=== PATIENT | female | born 2000 | race Caucasian/White ===

== ENCOUNTER 2021-07-04 16:18 | Outpatient (REF) | payer OTHER, SELFPAY ==
[2021-07-05 03:50] LABS: HBS Num1 5.82 mIU/mL (0-7.99); ~Hepatitis B Surface Antibody NONREACTIVE (Nonreactive)
[2021-07-07 07:37] LABS: TS Negative Control Passed; TS Panel A 0; TS Panel B 0; TS Positive Control Passed; TSpotTB Negative (Negative)
== END 2021-07-04 16:19 | disposition home or self-care (01) ==
LOC: HO.LNP 16:18
PROVIDERS: Visit Provider Internal Medicine
DX: Z02.1 Encounter for pre-employment examination (principal); Z11.1 Encounter for screening for respiratory tuberculosis
CPT/HCPCS: 86481; 86706

== ENCOUNTER 2023-03-11 17:18 | Emergency (ER) | payer OTHER, SELFPAY ==
--- NOTE | ~2023-03-11 | CT_ITS ---
EXAMINATION: CT ABDOMEN AND PELVIS WITH CONTRAST CLINICAL INFORMATION: Abdominal pain; history of bowel obstruction. COMPARISON: CT enterography dated 12/12/2021. TECHNIQUE: Multidetector volumetric images were obtained from the superior aspect of the liver through the pubic symphysis following administration 85 mL of Omnipaque 350 intravenous contrast. Sagittal and coronal reformatted images were obtained on the technologist's workstation. Oral contrast: No This CT examination was performed using dose optimization techniques as appropriate, variously including the following: *Automated exposure control *Adjustment of mA and/or kV according to patient size (this includes techniques or standardized protocols for targeted exams where dose is matched to indication/reason for exam; i.e. extremities or head) *Use of iterative reconstruction technique DLP: 523 mGy-cm FINDINGS: LUNG BASES: The visualized lung bases are unremarkable. LIVER, GALLBLADDER, AND BILIARY TREE: The liver is normal in size, shape, and attenuation. There is a Binh's lobe configuration. No focal hepatic lesion or biliary ductal dilatation is present. The gallbladder is unremarkable with no evidence of radiopaque gallstones, gallbladder wall thickening, or obvious pericholecystic inflammatory changes. PANCREAS: Unremarkable. SPLEEN: Unremarkable. ADRENAL GLANDS: The bilateral adrenal glands are unremarkable. KIDNEYS AND URETERS: The kidneys are normal in size, shape, and attenuation. 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 No hydronephrosis, hydroureter, or calculi seen. No perinephric stranding. BLADDER: Unremarkable. GASTROINTESTINAL TRACT: There is a patent, somewhat patulous left lower quadrant small bowel anastomosis. No obstruction, free intraperitoneal air or abscess is seen. No focal bowel wall thickening is seen. There is no significant diverticulosis or diverticulitis. The vermiform appendix is not identified with certainty; however, there is no finding to suggest appendicitis. ABDOMINAL WALL: No significant hernia is appreciated. LYMPH NODES: There are shotty pericecal lymph nodes, one of the largest showing a short axis diameter of 7 mm (4:406). No sizable abdominopelvic lymphadenopathy is seen. VASCULAR: Unremarkable. PELVIC VISCERA: The uterus and adnexa are unremarkable. OSSEOUS STRUCTURES: Unremarkable. CT/CT abdomen pelvis w IV con IMPRESSION: 1. There is a patent appearing, somewhat patulous left lower quadrant small bowel anastomosis. No bowel obstruction, free intraperitoneal air or abscess is seen. There is no focal bowel wall thickening. No appendicitis or diverticulitis is seen. 2. No urinary calculus or obstruction is seen. The left kidney is ptotic. 3. There are shotty, nonpathologically enlarged pericecal lymph nodes, likely reactive. No sizable abdominopelvic lymphadenopathy is seen. There is no ascites. Fleischner guidelines were followed.
[2023-03-11 17:23] VITALS: BP 146/87; PULSE 104; RESP 19; TEMP 36.6; O2SAT 99; BMI 26.8
[2023-03-11 17:37] VITALS: BP 128/84; PULSE 93; RESP 22; TEMP 36.8; O2SAT 99
--- NOTE | 2023-03-11 18:03 | ED.ABDPAIN ---
HPI - Abdominal Pain General Chief Complaint: Abdominal Pain Stated Complaint: abdominal pain Time Seen by Provider: 03/11/23 17:48 Source: patient and RN notes reviewed Mode of arrival: ambulatory Limitations: no limitations History of Present Illness HPI narrative: This is a 22-year-old female, with a past medical history of intussusception as a child as well as bowel obstruction in 2020 requiring partial bowel resection, factor 5 Leiden, presenting to the emergency department with acute onset abdominal pain which started 1 hour ago with associated nausea and diarrhea. She states that her current symptoms feel similar to bowel obstruction she had several years ago. 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 She reports that her stool was darker than usual. Patient denies any fevers, chills, chest pain, shortness of breath. Denies any urinary symptoms. Patient denies any abnormal vaginal bleeding or vaginal discharge. She is not sexually active, denies chance of . No other complaints or concerns at this time. MD elicited complaint: abdominal pain Location: periumbilical, RLQ and LLQ Severity: similar to previous episodes Pain scale (0-10): 8 Quality: cramping Radiation: none Migration to: no migration Exacerbating factors: nothing Relieving factors: nothing Associated symptoms: denies other symptoms Related Data Previous Rx's Medication Instructions Recorded ketorolac 10 mg tablet 10 mg PO Q8H PRN pain 3 days #9 03/12/23 tabs ondansetron 4 mg disintegrating 4 mg PO Q6H PRN nausea and 03/12/23 tablet vomiting #20 tabs Allergies Allergy/AdvReac Type Severity Reaction Status Date / Time prochlorperazine Allergy Unknown Verified 03/11/23 17:23 [From Compazine] codeine AdvReac Vomiting Verified 03/11/23 17:23 Review of Systems Review of Systems Yes all other systems are reviewed and are negative Constitutional: Reports as per HPI [facility] Past Medical History Onset Date is defined in the Problem List Problems that require an onset date and time if occurred within 24 hrs of arrival to the ED Aortic Dissection and Rupture; Neurologic impairment; Cardiopulmonary Arrest; Endotracheal Intubation; Insertion or Replacement of Mechanical Circulatory Assist Device Medical History (Updated 03/12/23 @ 01:00 by MUSTAPHA Estrada) Depression Anxiety Factor 5 Leiden mutation, heterozygous Asthma GERD (gastroesophageal reflux disease) IBS (irritable bowel syndrome) Bowel obstruction Endometriosis Social History Social History Smoked in Last 30 Days: No Use of substances other than those prescribed or required for medical reasons: No Advance Directives: No Advance Directives Information Provided: No Patient : No Physical Exam ED Vital Signs: Vital Signs - 24 hr 03/11/23 17:23 03/11/23 17:37 03/11/23 20:04 Temperature 98 F 98.2 F 98.3 F Pulse Rate 104 H 93 93 Respiratory Rate 19 22 H 16 Blood Pressure 146/87 H 128/84 106/62 Pulse Oximetry 99 99 97 Oxygen Delivery Method Room Air Room Air Room Air 03/11/23 20:13 03/11/23 22:27 03/11/23 23:19 Temperature 97.8 F Pulse Rate 87 75 Respiratory Rate 18 20 Blood Pressure 114/69 109/65 109/65 Pulse Oximetry 98 99 Oxygen Delivery Method Room Air Room Air BMI result Body Mass Index 26.8 Const General: cooperative, comfortable and no acute distress Orientation/consciousness: patient oriented x3 Limitations: no limitations HENMT Head: Yes normal to inspection, Yes normocephalic and Yes atraumatic Ears: hearing grossly normal bilaterally General nose exam: Normal external nose present Face and sinus: Yes normal facial exam Mouth: Normal oral and palatal mucosa present, oropharynx normal and moist mucous membranes Throat: Yes posterior oropharynx normal Eyes General: appearance normal, both eyes and all related structures Eyelids: Yes eyelids normal Conjunctivae: conjunctivae normal Sclerae: sclerae normal Pupils: Equal, round and reactive pupils present EOM: EOMs intact bilaterally Neck Neck: Yes normal visual inspection, Yes full ROM and Yes no lymphadenopathy Lymphatic: no lymphadenopathy noted Chest Chest palpation & inspection: normal inspection of the chest Resp Effort & Inspection: normal respiratory effort and able to speak in complete sentences Auscultation: clear to auscultation bilaterally, no crackles, no rales, no rhonchi and no wheezes Cardio Rate: regular rate Rhythm: regular rhythm Heart sounds: S1 normal heart sound present and S2 normal heart sound present GI Other: Abdomen is soft, with tenderness palpation in the periumbilical region as well as left lower and right lower quadrant. No rebound. Normoactive bowel sounds present Inspection: Yes normal to inspection Other: Rectal examination performed with KIM Cortés, present. Good rectal tone, brown stool noted, no active bleeding, no hemorrhoids noted Skin General skin exam: no rashes or lesions noted Trauma: no lacerations or abrasions Wounds: no wounds Neuro General: patient oriented x3 and moves all extremities Cranial nerves: Yes Equal, round and reactive pupils present Extrem General: Yes normal to inspection Right upper extremity: normal to inspection Left upper extremity: normal to inspection Right lower extremity: normal to inspection Left lower extremity: normal to inspection Course Reevaluation(s) Reevaluation #1: Patient reports that the morphine 4 mg and Zofran helped for a moment time however now reporting worsening pain and worsening nausea. Patient has an allergy to Compazine, with acute dystonic reaction. Discussed this with my attending physician, Dr. Ellis. Will medicate with Dilaudid and Phenergan Time: 20:19 Reevaluation #2: Patient reports that the pain has improved, however still having the discomfort. CT scan returns, revealing a patent somewhat patulous left lower quadrant small bowel anastomosis. No obstruction, free intraperitoneal abscess or air seen no focal bowel wall thickening. No diverticulitis or diverticulosis. Appendicitis or diverticulitis is not seen. There are shotty non pathological enlarged pericecal lymph nodes, likely reactive. I discussed these findings with my attending physician, Dr. Ellis. Sxs likely mesenteric adenitis. Recommends administering Toradol, and discharge with pain medication antiemetics. Will obtain stool occult. Time: 23:00 Reevaluation #3: Stool occult negative, urinalysis without any signs of UTI. Patient's symptoms improved after receiving IV Toradol. Still having slight discomfort however overall improved. P.o. challenge administered, able to tolerate fluids as well as food without any worsening symptoms. I discussed overall workup with patient as well as mother at bedside, symptoms likely consistent with mesenteric adenitis, unknown of viral etiology. Given CT findings show no obstruction or any other acute abnormalities, patient can be safely discharged home with close return precautions as well as follow-up with GI. I encouraged patient to continue at home bowel regimen given history of IBS, bowel obstructions and she was given opioid medications. She understands and agrees with this plan. Patient discharged with ketorolac x3 days as well as Zofran. Given strict return precautions. Patient understands agrees with plan. Patient stable for discharge. Time: 00:03 Medical Decision Making Medical Decision Making [facility] Narrative: This is a 22-year-old female, with a past medical history of intussusception as a child as well as bowel obstruction in 2020 requiring partial bowel resection, factor 5 Leiden, presenting to the emergency department with acute onset abdominal pain which started 1 hour ago with associated nausea and diarrhea. On arrival, patient appears to be uncomfortable, grimacing, patient afebrile, respirations 22 likely secondary to discomfort. Patient has tenderness palpation in the lower abdomen, with guarding, no rebound. Abdomen is soft. Given significant medical history of bowel obstruction with resection, my concern for bowel obstruction is high. Patient was seen and evaluated by my supervising physician, Dr. Ellis. Plan: Labs, CT abdomen with IV contrast, UA, IV Zofran and IV morphine Differential Diagnosis Differential Diagnoses: The differential diagnosis associated with the presentation includes Small-bowel obstruction, diverticulitis, diverticulosis Admission/Observation Consideration of admission/observation: Escalation of care including admission/observation considered Escalation of care including admission/observation considered given significant past medical history of bowel obstruction with bowel resection. Lab Data [facility] Lab Attestation statement: I reviewed the patient's lab results. No leukocytosis, stable H&H, chemistry within normal limits. Urine does not appear to be infected. Negative 03/11/23 18:54 03/11/23 18:54 Labs: Lab Results 03/11/23 03/11/23 03/11/23 Range/Units 18:54 22:46 22:47 WBC 10.1 (4.8-10.8) X10*3/uL RBC 4.38 (4.20-5.50) X10*6/uL Hgb 12.6 (12.0-16.0) g/dl Hct 37.6 (37.0-47.0) % MCV 85.8 (80.0-98.0) fL MCH 28.8 (27.0-33.0) pg MCHC 33.5 (31.0-35.0) g/dl RDW 12.9 (11.0-16.0) % Plt Count 292 (160-400) X10*3/uL MPV 10.1 (9.4-12.3) fL Immature Gran % (Auto) 0.2 (0.0-0.4) % Neut % (Auto) 65.8 (45-73) % Lymph % (Auto) 25.5 (20-40) % Garland % (Auto) 6.9 (2-11) % Eos % (Auto) 1.2 (0-4) % Baso % (Auto) 0.4 (0-2) % Lymph # (Auto) 2.6 (1.2-4.9) X10*3/uL Garland # (Auto) 0.7 (0.1-1.2) X10*3/uL Eos # (Auto) 0.1 (0.0-0.4) X10*3/uL Baso # (Auto) 0.0 (0.0-0.2) X10*3/uL Abs Immat Gran (auto) 0.02 (0.00-0.03) X10*3/uL Absolute Neuts (auto) 6.7 (2.0-8.3) x10*3/uL Absolute Nucleated RBC 0.000 (0.0-0.012) X10*3/uL Nucleated RBC % (auto) 0.0 (0.0-0.2) /100WBC Sodium 140 (135-145) mmol/L Potassium 4.0 (3.3-5.1) mmol/L Chloride 110 H (96-108) mmol/L Carbon Dioxide 20 L (22-29) mmol/L Anion Gap 14 (12-20) BUN 15 (9-16) mg/dL Creatinine 0.82 (0.5-1.4) mg/dL Estim Creat Clear Calc 115.5 Estimated GFR > 60 Random Glucose 90 (60-115) mg/dL Calcium 9.5 (8.4-10.2) mg/dL Magnesium 2.0 (1.6-2.6) mg/dL Total Bilirubin 0.8 (0.0-1.0) mg/dL Direct Bilirubin 0.3 (0.0-0.5) mg/dL AST 15 (5-31) U/L ALT 12 (0-31) U/L Alkaline Phosphatase 82 (39-117) U/L Total Protein 8.0 (6.5-8.0) g/dL Albumin 4.7 (3.5-5.0) g/dL Lipase 25 (8-78) U/L Beta HCG, Quant < 2 mIU/mL Urine Color Yellow Urine Appearance Clear Urine pH 5.5 (5.0-9.0) Ur Specific Cook Sta >= 1.030 H (1.005-1.025) Urine Protein Negative (Neg-Trace) mg/dL Urine Glucose (UA) Negative (Negative) mg/dL Urine Ketones Negative (Negative) mg/dL Urine Blood Negative (Negative) Urine Nitrite Negative (Negative) Ur Leukocyte Esterase Negative (Negative) Stool Occult Blood NEGATIVE (NEGATIVE) Radiology Impression Discussion of test interpretation with radiology: I have reviewed the radiologist's reading. Radiologist Impression: EXAMINATION: CT ABDOMEN AND PELVIS WITH CONTRAST CLINICAL INFORMATION: Abdominal pain; history of bowel obstruction. COMPARISON: CT enterography dated 12/12/2021. TECHNIQUE: Multidetector volumetric images were obtained from the superior aspect of the liver through the pubic symphysis following administration 85 mL of Omnipaque 350 intravenous contrast. Sagittal and coronal reformatted images were obtained on the technologist's workstation. Oral contrast: No This CT examination was performed using dose optimization techniques as appropriate, variously including the following: *Automated exposure control *Adjustment of mA and/or kV according to patient size (this includes techniques or standardized protocols for targeted exams where dose is matched to indication/reason for exam; i.e. extremities or head) *Use of iterative reconstruction technique DLP: 523 mGy-cm FINDINGS: LUNG BASES: The visualized lung bases are unremarkable. LIVER, GALLBLADDER, AND BILIARY TREE: The liver is normal in size, shape, and attenuation. There is a Binh's lobe configuration. No focal hepatic lesion or biliary ductal dilatation is present. The gallbladder is unremarkable with no evidence of radiopaque gallstones, gallbladder wall thickening, or obvious pericholecystic inflammatory changes. PANCREAS: Unremarkable. SPLEEN: Unremarkable. ADRENAL GLANDS: The bilateral adrenal glands are unremarkable. KIDNEYS AND URETERS: The kidneys are normal in size, shape, and attenuation. 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 No hydronephrosis, hydroureter, or calculi seen. No perinephric stranding. BLADDER: Unremarkable. GASTROINTESTINAL TRACT: There is a patent, somewhat patulous left lower quadrant small bowel anastomosis. No obstruction, free intraperitoneal air or abscess is seen. No focal bowel wall thickening is seen. There is no significant diverticulosis or diverticulitis. The vermiform appendix is not identified with certainty; however, there is no finding to suggest appendicitis. ABDOMINAL WALL: No significant hernia is appreciated. LYMPH NODES: There are shotty pericecal lymph nodes, one of the largest showing a short axis diameter of 7 mm (4:406). No sizable abdominopelvic lymphadenopathy is seen. VASCULAR: Unremarkable. PELVIC VISCERA: The uterus and adnexa are unremarkable. OSSEOUS STRUCTURES: Unremarkable. CT/CT abdomen pelvis w IV con IMPRESSION: 1. There is a patent appearing, somewhat patulous left lower quadrant small bowel anastomosis. No bowel obstruction, free intraperitoneal air or abscess is seen. There is no focal bowel wall thickening. No appendicitis or diverticulitis is seen. 2. No urinary calculus or obstruction is seen. The left kidney is ptotic. 3. There are shotty, nonpathologically enlarged pericecal lymph nodes, likely reactive. No sizable abdominopelvic lymphadenopathy is seen. There is no ascites. Fleischner guidelines were followed. Dictated By: Randal Alonso MD Independent Historian Clinical information obtained from an independent historian. History obtained from or confirmed by: Parent Medications Administered Discontinued Medications Generic Name Dose Route Start Last Admin Trade Name Freq PRN Reason Stop Dose Admin Hydromorphone HCl 1 mg 03/11/23 20:12 03/11/23 20:59 Hydromorphone Hcl 1 Mg/Ml Syringe IVPUSH 03/11/23 20:13 1 mg ONCE ONE Administration Protocol Promethazine HCl 12.5 mg/ 50.5 mls @ 202 mls/hr 03/11/23 20:12 03/11/23 21:14 Sodium Chloride IV 03/11/23 20:13 Infused ONCE ONE Infusion Sodium Chloride 1,000 mls @ 999 mls/hr 03/11/23 22:49 03/12/23 00:22 Ns IV 03/11/23 23:49 Infused .Q1H1M ONE Infusion Iohexol 85 ml 03/11/23 19:47 03/11/23 19:47 Iohexol 350 Mg/Ml 100 Ml Infus..Btl IV 03/11/23 19:48 85 ml ONCE ONE Administration Ketorolac Tromethamine 30 mg 03/11/23 23:07 01/10/24 23:32 Ketorolac Tromethamine 30 Mg/Ml Vial IVPUSH 03/11/23 23:08 30 mg ONCE ONE Administration Morphine Sulfate 4 mg 03/11/23 18:01 03/11/23 19:02 Morphine Sulfate 4 Mg/Ml Cartridge IVPUSH 03/11/23 18:02 4 mg ONCE ONE Administration Protocol Ondansetron HCl 4 mg 03/11/23 18:01 03/11/23 19:02 Ondansetron Hcl 4 Mg/2 Ml Vial IVPUSH 03/11/23 18:02 4 mg ONCE ONE Administration Critical Care Time Critical Care Time Critical Care Time: Yes Total Critical Care Time: 35 Attestation: I have personally provided critical care time exclusive of time spent on separately billable procedures. Time includes review of lab data, radiology results, discussion with consultants, and monitoring for potential decompensation. Intervention performed as documented. Discharge Plan Discharge Clinical Impression: Abdominal pain, Acute mesenteric adenitis Patient Disposition: Home, Self-Care Instructions: Abdominal Pain (ED) Additional Instructions: You were seen in the emergency department due to abdominal pain. Your CT shows no bowel obstruction. There are also nonspecific lymph nodes seen, this is likely due to a viral etiology. Please continue to stay well hydrated and get plenty of rest. Please follow-up with your GI specialist, call tomorrow to make an appointment. Take prescribed medication as directed. Do not take Toradol and ibuprofen together. I am also recommending you take bowel regimen medications as needed as you were given opiates in the department which can be constipating. If any new or worsening symptoms occur including but not limited to worsening abdominal pain, unable to tolerate any food or liquid by mouth, please return for re-evaluation. Prescriptions: New ondansetron 4 mg tablet,disintegrating 4 mg PO Q6H PRN (Reason: nausea and vomiting) Qty: 20 0RF ketorolac 10 mg tablet 10 mg PO Q8H PRN (Reason: pain) 3 Days Qty: 9 0RF Referrals: [facility] [[place] Group] Stand Alone Forms: Work/School Release Interventions: ED Discharge Assessment Last Done: 03/12/23 01:42 Discharge Date/Time: 03/12/23 01:46
--- NOTE | 2023-03-11 18:50 | PC.NURSE ---
this nurse and another attempted IV access/blood draw, unable to access. RN at bedside attempting u/s IV.
[2023-03-11 19:00] LABS: MANUAL DIFF FLAG NO
[2023-03-11 19:02] LABS: Basophils Percent Auto 0.4 % (0-2); Eosinophils Absolute Auto 0.1 X10*3/uL (0.0-0.4); Eosinophils Percent Auto 1.2 % (0-4); Hematocrit 37.6 % (37.0-47.0); Hemoglobin 12.6 g/dl (12.0-16.0); Imm Gran Abs Auto 0.02 X10*3/uL (0.00-0.03); Imm Gran Pct Auto 0.2 % (0.0-0.4); Lymphocytes Absolute Auto 2.6 X10*3/uL (1.2-4.9); Lymphocytes Percent Auto 25.5 % (20-40); Mean Corpuscular HGB Conc 33.5 g/dl (31.0-35.0); Mean Corpuscular Hemoglobin 28.8 pg (27.0-33.0); Mean Corpuscular Volume 85.8 fL (80.0-98.0); Mean Platelet Volume 10.1 fL (9.4-12.3); Monocytes Absolute Auto 0.7 X10*3/uL (0.1-1.2); Monocytes Percent Auto 6.9 % (2-11); Neutrophils Absolute Auto 6.7 x10*3/uL (2.0-8.3); Neutrophils Percent Auto 65.8 % (45-73); Platelet Count 292 X10*3/uL (160-400); Red Blood Count 4.38 X10*6/uL (4.20-5.50); Red Cell Distribution Width 12.9 % (11.0-16.0); White Blood Count 10.1 X10*3/uL (4.8-10.8)
[2023-03-11] MEDS: ondansetron HCL 4 MG/2 ML VIAL IVPUSH (19:02)
[2023-03-11] MEDS: Morphine Sulfate 4 MG/ML CARTRIDGE IVPUSH (19:02)
--- NOTE | 2023-03-11 19:08 | PC.NURSE ---
Addendum entered by Milana Manjarrez 03/11/23 19:14: IV access placed in Left AC Original Note: this rn assumed care of pt. pt reporting 8/10 abdominal pain at this time, pt medicated per apr, delay in medication administration due to pt needing access. 20G placed in right AC by Aly ALVAREZ.
[2023-03-11 19:16] LABS: Alanine Aminotransferase 12 U/L (0-31); Albumin Level 4.7 g/dL (3.5-5.0); Alkaline Phosphatase 82 U/L (39-117); Anion Gap 14 (12-20); Aspartate Amino Transferase 15 U/L (5-31); Bilirubin Direct 0.3 mg/dL (0.0-0.5); Bilirubin Total 0.8 mg/dL (0.0-1.0); Blood Urea Nitrogen 15 mg/dL (9-16); Calcium 9.5 mg/dL (8.4-10.2); Carbon Dioxide 20 mmol/L (22-29); Chloride 110 mmol/L (96-108); Creatinine Clr Calc Pharmacy 115.5; Estimated Glomerular Filt Rate > 60; Glucose Random 90 mg/dL (60-115); Lipase 25 U/L (8-78); Sodium 140 mmol/L (135-145)
[2023-03-11 19:23] LABS: HCG Quantitative < 2 mIU/mL
[2023-03-11] MEDS: iohexoL 350 MG/ML 100 ML INFUS..BTL 85 ML IV (19:47)
[2023-03-11 20:04] VITALS: BP 106/62; PULSE 93; RESP 16; TEMP 36.8; O2SAT 97
[2023-03-11 20:13] VITALS: BP 114/69
[2023-03-11] MEDS: HYDROmorphone HCl 1 MG/ML SYRINGE IVPUSH (20:59)
[2023-03-11 22:27] VITALS: BP 109/65; PULSE 87; RESP 18; TEMP 36.6; O2SAT 98
[2023-03-11] MEDS: 0.9 % Sodium Chloride 1,000 ML 999 ML IV (22:54)
[2023-03-11 23:04] LABS: OBS Int Ctl Valid YES; OBS1 NEGATIVE (NEGATIVE)
[2023-03-11 23:05] LABS: Appearance Urine Clear; Color Urine Yellow; Glucose Urine UA Negative (Negative); Leukocyte Esterase Urine Negative (Negative); Nitrite Urine Negative (Negative); PH 5.5 (5.0-9.0); Specific Gravity - Urine >= 1.030 (1.005-1.025); Urine Blood Negative (Negative); Urine Ketones Negative (Negative); Urine Protein Negative (Neg-Trace)
--- NOTE | 2023-03-11 23:05 | PC.NURSE ---
this rn at bedside to assist Jeanine LUCIANO with rectal exam. pt tolerated well. OBX obtained and sent to lab.
[2023-03-11 23:19] VITALS: BP 109/65; PULSE 75; RESP 20; O2SAT 99
[2023-03-11] MEDS: Ketorolac Tromethamine 30 MG/ML VIAL IVPUSH (23:32)
== END 2023-03-12 01:46 | disposition home or self-care (01) ==
PROVIDERS: Physician Assistant Medical; Emergency Provider Emergency Medicine; PCP Pediatrics
DX: R10.9 Unspecified abdominal pain (principal); R59.0 Localized enlarged lymph nodes
CPT/HCPCS: 36415; 74177; 80048; 80076; 81003; 82272; 83690; 83735; 84702; 85025; 96361; 96374; 96375; 99284; 99285; J1170; J1885; J2270; J2405; J2550; Q9967

== ENCOUNTER 2023-04-17 06:39 | Emergency (ER) | payer OTHER, SELFPAY ==
--- NOTE | ~2023-04-17 | CT_ITS ---
EXAMINATION: CT ABDOMEN AND PELVIS WITH CONTRAST CLINICAL INFORMATION: Abdominal pain questionable obstruction COMPARISON: 03/11/2023 TECHNIQUE: Multidetector volumetric images were obtained from the superior aspect of the liver through the pubic symphysis following administration 85 mL of Omnipaque 350 intravenous contrast. Sagittal and coronal reformatted images were obtained on the technologist's workstation. Oral contrast: Yes This CT examination was performed using dose optimization techniques as appropriate, variously including the following: *Automated exposure control *Adjustment of mA and/or kV according to patient size (this includes techniques or standardized protocols for targeted exams where dose is matched to indication/reason for exam; i.e. extremities or head) *Use of iterative reconstruction technique DLP: 510 mGy-cm FINDINGS: LUNG BASES: The visualized lung bases are unremarkable. LIVER, GALLBLADDER, AND BILIARY TREE: The liver is normal in size, shape, and attenuation. No focal hepatic lesion or biliary ductal dilatation is present. The gallbladder is unremarkable with no evidence of radiopaque gallstones, gallbladder wall thickening, or obvious pericholecystic inflammatory changes. PANCREAS: Unremarkable. SPLEEN: Unremarkable. ADRENAL GLANDS: Unremarkable. KIDNEYS AND URETERS: Right kid. There is no hydroureteronephrosis or nephrolithiasis. [place] is unremarkable. 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 GASTROINTESTINAL TRACT: There is no evidence of bowel obstruction. There is circumferentially thickened wall of sigmoid colon and descending colon is decompressed. Anastomosis is well functioning slightly patulous. There is no evidence of bowel obstruction. Appendix is not seen ABDOMINAL WALL: No significant hernia is appreciated. LYMPH NODES: There are a few scattered lymph nodes with the largest in the right lower quadrant measured 1.1 cm. VASCULAR: Unremarkable. PELVIC VISCERA: Unremarkable. OSSEOUS STRUCTURES: Unremarkable. CT/CT abdomen pelvis w IV con IMPRESSION: No evidence of bowel obstruction. 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
--- NOTE | 2023-04-17 06:51 | ED.GENADULT ---
HPI - General Adult General Chief complaint: Abdominal Pain Stated complaint: abd pain Time Seen by Provider: 04/17/23 06:50 Source: patient and family (patient's father) Mode of arrival: ambulatory Limitations: no limitations History of Present Illness HPI narrative: Patient is a 22 year old assigned female at with a history of previous abdominal surgeries including adhesion removal after discovery of volvulus presenting to the emergency department today with abdominal pain. Patient states that over the last few hours she has had worsening epigastric type pain. Patient states that her last solid bowel movement was 2 days ago and she continues to pass gas. Patient denies any dizziness, lightheadedness, fever, chills, blurry vision, double vision, loss of vision, chest pain, difficulty breathing, shortness of breath, back pain, night sweats, pain with urination, increased urinary frequency, increased urinary urgency, blood in her urine or stool, syncope or a near syncopal episode, recent trauma or falls, bowel incontinence, bladder incontinence, bowel retention, bladder retention, or any other complaints at this time. Location: abdomen Severity: mild Severity scale (1-10): 4 Quality: aching Pain Consistency: constant Relieving factors: none Exacerbating factors: none Treatments prior to arrival: none Related Data Previous Rx's Medication Instructions Recorded ketorolac 10 mg tablet 10 mg PO Q8H PRN pain 3 days #9 03/12/23 tabs ondansetron 4 mg disintegrating 4 mg PO Q6H PRN nausea and 03/12/23 tablet vomiting #20 tabs ketorolac 10 mg tablet 10 mg PO TID PRN pain 5 days #14 04/17/23 tabs prednisone 20 mg tablet 40 mg (2 x 20 mg) PO BID 7 days 04/17/23 #28 tabs promethazine 12.5 mg tablet 12.5 mg PO TID PRN nausea and 04/17/23 vomiting #14 tabs Allergies Allergy/AdvReac Type Severity Reaction Status Date / Time prochlorperazine Allergy Unknown Verified 04/17/23 06:52 [From Compazine] codeine AdvReac Vomiting Verified 04/17/23 06:52 Review of Systems Constitutional: Constitutional: Reports no additional constitutional complaints, Denies chills, Denies fever(s) and Denies night sweats Eyes: Eyes: Reports no additional eye complaints, Denies blurry vision, Denies change in vision, Denies diplopia, Denies eye discharge, Denies loss of vision and Denies eye pain ENT: Denies dizziness Cardiovascular: Cardiovascular: Reports no additional cardiovascular complaints, Denies chest pain, Denies lightheadedness, Denies Loss of Consciousness and Denies dyspnea Respiratory: Respiratory: Reports no additional respiratory complaints and Denies dyspnea Gastrointestinal: Gastrointestinal: Reports no additional gastrointestinal complaints, Reports abdominal pain, Denies melena, Denies hematochezia, Denies change in bowel habits and Denies change in stool character Genitourinary: Genitourinary: Denies hematuria, Denies urinary frequency, Denies dysuria, Denies urinary incontinence, Denies urinary hesitancy and Denies urinary urgency Musculoskeletal: Musculoskeletal: Reports no additional musculoskeletal complaints, Denies numbness and Denies tingling Neurologic: Denies dizziness, Denies loss of vision, Denies numbness and Denies tingling Psychiatric: Psychiatric: Reports no additional psychiatric complaints Endocrine: Endocrine: Reports no additional endocrine complaints Hematologic/Lymphatic: Hematologic/Lymphatic: Reports no additional hematologic/lymphatic complaints Allergic/Immunologic: Allergic/Immunologic: Reports no additional allergic/immunologic complaints [facility] Past Medical History Attestation statement: The following information was validated with the patient. (all information validated with the patient's father) Source: old records reviewed, obtained from family (patient's father provided additional history and confirmed the history provided by the patient) and nursing notes reviewed Medical History Depression Anxiety Factor 5 Leiden mutation, heterozygous Asthma GERD (gastroesophageal reflux disease) IBS (irritable bowel syndrome) Bowel obstruction Endometriosis Social History Social History Advance Directives: No Advance Directives Information Provided: No Physical Exam ED Vital Signs: Vital Signs - 24 hr 04/17/23 06:52 04/17/23 09:07 04/17/23 10:49 Temperature 98 F 98 F 98.3 F Pulse Rate 102 H 80 79 Respiratory Rate 16 16 18 Blood Pressure 134/90 H 113/75 108/52 L Pulse Oximetry 95 99 100 Oxygen Delivery Method Room Air Room Air Room Air BMI result Body Mass Index 26.6 Const General: cooperative, no acute distress, alert and awake Nutritional Appearance: well nourished Orientation/consciousness: patient oriented x3 Limitations: no limitations HENMT Head: Yes normal to inspection and Yes atraumatic Ears: hearing grossly normal bilaterally and external ears normal General nose exam: Normal external nose present, no nasal discharge noted and no epistaxis Face and sinus: Yes normal facial exam, No abrasion and No laceration Mouth: Normal oral and palatal mucosa present, no drooling and no muffled voice Eyes General: appearance normal, both eyes and all related structures Periorbital: periorbital findings normal Eyelids: Yes eyelids normal Conjunctivae: conjunctivae normal Pupils: Equal, round and reactive pupils present EOM: EOMs intact bilaterally Neck Neck: Yes normal visual inspection, Yes full ROM and Yes no lymphadenopathy Chest Chest palpation & inspection: normal inspection of the chest Resp Effort & Inspection: normal respiratory effort and able to speak in complete sentences GI Inspection: Yes normal to inspection Palpation (GI): Soft to palpation, not firm, nontender and no guarding Neuro General: patient oriented x3 and moves all extremities Cranial nerves: Yes Equal, round and reactive pupils present Cognition (Neuro): normal cognition Motor exam (neuro): 5/5 motor strength present throughout Sensory Exam: Normal double simultaneous stimulation for sensation Coordination: [id number] test normal Extrem General: Yes normal to inspection, Yes full ROM and Yes capillary refill normal Psych Appearance: grossly normal Mental Status: mental status grossly normal Affect: normal affect Attitude: cooperative Thought process: Normal thought process present Thought content: Normal thought content present Insight: Good insight present (Psych) Medications Administered Discontinued Medications Generic Name Dose Route Start Last Admin Trade Name Mikeyq PRN Reason Stop Dose Admin Hydromorphone HCl 1 mg 04/17/23 10:11 04/17/23 10:45 Hydromorphone Hcl 1 Mg/Ml Syringe IVPUSH 04/17/23 10:12 1 mg ONCE ONE Administration Protocol Sodium Chloride 1,000 mls @ 999 mls/hr 04/17/23 07:15 04/17/23 10:53 Ns IV 04/17/23 08:15 Infused .Q1H1M RICCO Infusion Promethazine HCl 12.5 mg/ 50.5 mls @ 202 mls/hr 04/17/23 11:53 04/17/23 12:38 Sodium Chloride IV 04/17/23 11:54 202 mls/hr ONCE ONE Administration Iohexol 85 ml 04/17/23 09:59 04/17/23 10:00 Iohexol 350 Mg/Ml 100 Ml Infus..Btl IV 04/17/23 10:00 85 ml ONCE ONE Administration Ketorolac Tromethamine 15 mg 04/17/23 10:11 04/17/23 10:45 Ketorolac Tromethamine 15 Mg/Ml Vial IVPUSH 04/17/23 10:12 15 mg ONCE ONE Administration Morphine Sulfate 4 mg 04/17/23 07:07 04/17/23 08:49 Morphine Sulfate 4 Mg/Ml Cartridge IVPUSH 04/17/23 07:08 4 mg ONCE ONE Administration Protocol Ondansetron HCl 4 mg 04/17/23 07:07 04/17/23 08:49 Ondansetron Hcl 4 Mg/2 Ml Vial IVPUSH 04/17/23 07:08 4 mg ONCE ONE Administration Pantoprazole Sodium 40 mg 04/17/23 07:07 04/17/23 08:49 Pantoprazole Sodium 40 Mg/10 Ml Vial IVPUSH 04/17/23 07:08 40 mg ONCE ONE Administration Medical Decision Making Medical Decision Making MDM Narrative: Patient is a 22 year old assigned female at with a history of multiple abdominal surgeries presenting to the emergency department today with abdominal pain, nausea, and diarrhea. Patient's physical exam was unremarkable. Patient's blood work was unremarkable. Patient's urine showed no acute process. Patient's abdomen/pelvis CT showed circumferential thickening of the sigmoid colon possibly due to inflammatory bowel disease vs. crohn colitis. I explained my physical exam findings as well as all test results to the patient and the patient's mother. I answered all questions asked by the patient and the patient's mother. Patient received IV pain medications, fluids, and anti-emetics while in the department which she stated helped her symptoms significantly. I stressed the importance of the patient taking her medication as prescribed. I stressed the importance of the patient following up with her primary care provider. I stressed the importance of the patient returning to the emergency department immediately if her symptoms were to worsen or if she were to develop any dizziness, shortness of breath, difficulty breathing, chest pain, blurry vision, loss of vision, nausea, vomiting, abdominal pain, fever, chills, back pain, or any other complaints. Patient and the patient's mother verbalized agreement and understanding with this treatment plan and discharge. Differential Diagnosis Differential Diagnoses: The differential diagnosis associated with the presentation includes Crohns Inflammatory bowel Colitis Abdominal pain Admission/Observation Consideration of admission/observation: Escalation of care including admission/observation considered Patient would have been admitted to the hospital had her work up had any findings where hospital admission was appropriate and her clinical presentation warranted hospital admission. Lab Data [facility] Lab Attestation statement: I reviewed the patient's lab results. My interpretation of these results are in the [facility] Rationale portion of this note. 04/17/23 08:42 04/17/23 08:42 Labs: Lab Results 04/17/23 04/17/23 Range/Units 07:32 08:42 WBC 8.2 (4.8-10.8) X10*3/uL RBC 4.94 (4.20-5.50) X10*6/uL Hgb 14.1 (12.0-16.0) g/dl Hct 41.6 (37.0-47.0) % MCV 84.2 (80.0-98.0) fL MCH 28.5 (27.0-33.0) pg MCHC 33.9 (31.0-35.0) g/dl RDW 12.9 (11.0-16.0) % Plt Count 254 (160-400) X10*3/uL MPV 10.2 (9.4-12.3) fL Immature Gran % (Auto) 0.4 (0.0-0.4) % Neut % (Auto) 76.4 H (45-73) % Lymph % (Auto) 16.8 L (20-40) % [place] % (Auto) 5.4 (2-11) % Eos % (Auto) 0.6 (0-4) % Baso % (Auto) 0.4 (0-2) % Lymph # (Auto) 1.4 (1.2-4.9) X10*3/uL [place] # (Auto) 0.4 (0.1-1.2) X10*3/uL Eos # (Auto) 0.1 (0.0-0.4) X10*3/uL Baso # (Auto) 0.0 (0.0-0.2) X10*3/uL Abs Immat Gran (auto) 0.03 (0.00-0.03) X10*3/uL Absolute Neuts (auto) 6.2 (2.0-8.3) x10*3/uL Absolute Nucleated RBC 0.000 (0.0-0.012) X10*3/uL Nucleated RBC % (auto) 0.0 (0.0-0.2) /100WBC Sodium 142 (135-145) mmol/L Potassium 4.1 (3.3-5.1) mmol/L Chloride 110 H (96-108) mmol/L Carbon Dioxide 20 L (22-29) mmol/L Anion Gap 16 (12-20) BUN 15 (9-16) mg/dL Creatinine 0.82 (0.5-1.4) mg/dL Estim Creat Clear Calc 115.0 Estimated GFR > 60 Random Glucose 84 (60-115) mg/dL Calcium 9.8 (8.4-10.2) mg/dL Total Bilirubin 1.9 H (0.0-1.0) mg/dL AST 16 (5-31) U/L ALT 11 (0-31) U/L Alkaline Phosphatase 86 (39-117) U/L Total Protein 8.4 H (6.5-8.0) g/dL Albumin 5.0 (3.5-5.0) g/dL Beta HCG, Quant 3 mIU/mL Urine Color Yellow Urine Appearance Clear Urine pH 6.0 (5.0-9.0) Ur Specific [place] >= 1.030 H (1.005-1.025) Urine Protein Trace (Neg-Trace) mg/dL Urine Glucose (UA) Negative (Negative) mg/dL Urine Ketones Negative (Negative) mg/dL Urine Blood Negative (Negative) Urine Nitrite Negative (Negative) Ur Leukocyte Esterase Negative (Negative) Independent Interpretation I performed an independent interpretation of an: CT Scan Interpretation: My interpretation is in agreement with the radiologist's impression of this imaging study. EXAMINATION: CT ABDOMEN AND PELVIS WITH CONTRAST CLINICAL INFORMATION: Abdominal pain questionable obstruction COMPARISON: 03/11/2023 TECHNIQUE: Multidetector volumetric images were obtained from the superior aspect of the liver through the pubic symphysis following administration 85 mL of Omnipaque 350 intravenous contrast. Sagittal and coronal reformatted images were obtained on the technologist's workstation. Oral contrast: Yes This CT examination was performed using dose optimization techniques as appropriate, variously including the following: *Automated exposure control *Adjustment of mA and/or kV according to patient size (this includes techniques or standardized protocols for targeted exams where dose is matched to indication/reason for exam; i.e. extremities or head) *Use of iterative reconstruction technique DLP: 510 mGy-cm FINDINGS: LUNG BASES: The visualized lung bases are unremarkable. LIVER, GALLBLADDER, AND BILIARY TREE: The liver is normal in size, shape, and attenuation. No focal hepatic lesion or biliary ductal dilatation is present. The gallbladder is unremarkable with no evidence of radiopaque gallstones, gallbladder wall thickening, or obvious pericholecystic inflammatory changes. PANCREAS: Unremarkable. SPLEEN: Unremarkable. ADRENAL GLANDS: Unremarkable. KIDNEYS AND URETERS: Right kid. There is no hydroureteronephrosis or nephrolithiasis. [place] is unremarkable. 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 GASTROINTESTINAL TRACT: There is no evidence of bowel obstruction. There is circumferentially thickened wall of sigmoid colon and descending colon is decompressed. Anastomosis is well functioning slightly patulous. There is no evidence of bowel obstruction. Appendix is not seen ABDOMINAL WALL: No significant hernia is appreciated. LYMPH NODES: There are a few scattered lymph nodes with the largest in the right lower quadrant measured 1.1 cm. VASCULAR: Unremarkable. PELVIC VISCERA: Unremarkable. OSSEOUS STRUCTURES: Unremarkable. CT/CT abdomen pelvis w IV con IMPRESSION: No evidence of bowel obstruction. 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 Dictated By: Joo Guerin MD Signed By: Electronically signed by Joo Guerin MD 04/17/23 9734 Radiology Impression Discussion of test interpretation with radiology: I have reviewed the radiologist's reading. Independent Historian Clinical information obtained from an independent historian. History obtained from or confirmed by: Parent (patient's mother provided additional history and confirmed the history provided. ) Critical Care Time Critical Care Time Critical Care Time: Yes Total Critical Care Time: 55 Attestation: I spent 55 minutes of Critical Care Time with this patient. This does not include time spent on separately reported billable procedures. Discharge Plan Discharge Clinical Impression: Abdominal pain Patient Disposition: Home, Self-Care Instructions: Abdominal Pain (ED) Additional Instructions: Follow up with your primary care provider and a GI specialist. Return to the emergency department immediately if your symptoms worsen or if you develop any dizziness, shortness of breath, difficulty breathing, chest pain, blurry vision, loss of vision, nausea, vomiting, abdominal pain, fever, chills, back pain, or any other complaints. Prescriptions: New promethazine 12.5 mg tablet 12.5 mg PO TID PRN (Reason: nausea and vomiting) Qty: 14 0RF ketorolac 10 mg tablet 10 mg PO TID PRN (Reason: pain) 5 Days Qty: 14 0RF prednisone 20 mg tablet 40 mg PO BID 7 Days Qty: 28 0RF No Action ondansetron 4 mg tablet,disintegrating 4 mg PO Q6H PRN (Reason: nausea and vomiting) Qty: 20 0RF ketorolac 10 mg tablet 10 mg PO Q8H PRN (Reason: pain) 3 Days Qty: 9 0RF
[2023-04-17 06:52] VITALS: BP 134/90; PULSE 102; RESP 16; TEMP 36.6; O2SAT 95; BMI 26.6
[2023-04-17 07:37] LABS: Appearance Urine Clear; Color Urine Yellow; Glucose Urine UA Negative (Negative); Leukocyte Esterase Urine Negative (Negative); Nitrite Urine Negative (Negative); Specific Gravity - Urine >= 1.030 (1.005-1.025); Urine Blood Negative (Negative); Urine Ketones Negative (Negative); Urine Protein Trace mg/dL (Neg-Trace)
[2023-04-17 08:46] LABS: MANUAL DIFF FLAG NO
[2023-04-17] MEDS: ondansetron HCL 4 MG/2 ML VIAL IVPUSH (08:49)
[2023-04-17] MEDS: Morphine Sulfate 4 MG/ML CARTRIDGE IVPUSH (08:49)
[2023-04-17] MEDS: Pantoprazole Sodium 40 MG/10 ML VIAL IVPUSH (08:49)
[2023-04-17 08:50] LABS: Basophils Percent Auto 0.4 % (0-2); Eosinophils Absolute Auto 0.1 X10*3/uL (0.0-0.4); Eosinophils Percent Auto 0.6 % (0-4); Hematocrit 41.6 % (37.0-47.0); Hemoglobin 14.1 g/dl (12.0-16.0); Imm Gran Abs Auto 0.03 X10*3/uL (0.00-0.03); Imm Gran Pct Auto 0.4 % (0.0-0.4); Lymphocytes Absolute Auto 1.4 X10*3/uL (1.2-4.9); Lymphocytes Percent Auto 16.8 % (20-40); Mean Corpuscular HGB Conc 33.9 g/dl (31.0-35.0); Mean Corpuscular Hemoglobin 28.5 pg (27.0-33.0); Mean Corpuscular Volume 84.2 fL (80.0-98.0); Mean Platelet Volume 10.2 fL (9.4-12.3); Monocytes Absolute Auto 0.4 X10*3/uL (0.1-1.2); Monocytes Percent Auto 5.4 % (2-11); Neutrophils Absolute Auto 6.2 x10*3/uL (2.0-8.3); Neutrophils Percent Auto 76.4 % (45-73); Platelet Count 254 X10*3/uL (160-400); Red Blood Count 4.94 X10*6/uL (4.20-5.50); Red Cell Distribution Width 12.9 % (11.0-16.0); White Blood Count 8.2 X10*3/uL (4.8-10.8)
[2023-04-17] MEDS: 0.9 % Sodium Chloride 1,000 ML 999 ML IV (08:50)
[2023-04-17 09:07] VITALS: BP 113/75; PULSE 80; RESP 16; TEMP 36.6; O2SAT 99
[2023-04-17 09:07] LABS: Alanine Aminotransferase 11 U/L (0-31); Alkaline Phosphatase 86 U/L (39-117); Anion Gap 16 (12-20); Aspartate Amino Transferase 16 U/L (5-31); Bilirubin Total 1.9 mg/dL (0.0-1.0); Blood Urea Nitrogen 15 mg/dL (9-16); Calcium 9.8 mg/dL (8.4-10.2); Carbon Dioxide 20 mmol/L (22-29); Chloride 110 mmol/L (96-108); Estimated Glomerular Filt Rate > 60; Glucose Random 84 mg/dL (60-115); Potassium 4.1 mmol/L (3.3-5.1); Sodium 142 mmol/L (135-145); Total Protein 8.4 g/dL (6.5-8.0)
[2023-04-17 09:09] LABS: HCG Quantitative 3 mIU/mL
--- NOTE | 2023-04-17 09:11 | PC.NURSE ---
20g iv inserted R upper outer arm, labs drawn, fluids started and meds given as documented. vss. Pt's mother is at bedside.
[2023-04-17] MEDS: iohexoL 350 MG/ML 100 ML INFUS..BTL 85 ML IV (10:00)
[2023-04-17] MEDS: Ketorolac Tromethamine 15 MG/ML VIAL IVPUSH (10:45)
[2023-04-17] MEDS: HYDROmorphone HCl 1 MG/ML SYRINGE IVPUSH (10:45)
[2023-04-17 10:49] VITALS: BP 108/52; PULSE 79; RESP 18; TEMP 36.8; O2SAT 100
== END 2023-04-17 14:00 | disposition home or self-care (01) ==
PROVIDERS: Physician Assistant Medical; Emergency Provider Student in an Organized Health Care Education/Training Program
DX: R10.13 Epigastric pain (principal); R11.2 Nausea with vomiting, unspecified; Z79.899 Other long term (current) drug therapy
CPT/HCPCS: 36415; 74177; 80053; 81003; 84702; 85025; 96361; 96374; 96375; 99284; C9113; J1170; J1885; J2270; J2405; J2550; Q9967

== ENCOUNTER 2023-04-24 14:57 | Outpatient (AMB) | payer OTHER, SELFPAY ==
--- NOTE | 2023-04-24 15:12 | MHC.OFFVIS ---
Intake Vital Signs 04/24/23 15:16 Height 5 ft 7 in Weight 167 lb BMI 26.2 BP 117/63 Blood Pressure Location Lt brachial Position Sitting Pulse 98 Intake Visit Reasons: colo screening per Intake Note: Patient new consult for 1st pre colonoscopy screening. Patient cc: fever for a week, Nauseas, abdominal pain with bloating, diarrhea, fatigue and decrease of appetite. Patient have a CT Scan at the [facility] ED and was dx with Crohns. Features Editor Required: No Accompanied by: Mother Allergies prochlorperazine [From Compazine] Allergy (Verified 04/24/23 15:10) Unknown codeine Adverse Reaction (Verified 04/24/23 15:10) Vomiting HPI HPI Comments History of Present Illness Details 22 y.o F with PMH of partial small bowel resection 2020, intessuseption 2003 ([facility]), IBS, GERD who is here for abd complaints as below. Pt reports longstanding issues with constipation and has been on multiple meds for this including senna, miralax, amitiza and more recently on motegrity (Dr Vo at [facility]). Has also sought different opinions at [facility] with Dr Wong as well as GI in [place]. More recently, pt has been experiencing middle abdominal pain with diarrhea. Back in Mar 2023 was seen in ER - at that time was thought to be secondary to a viral infection. Then had another flare last week of severe abd pain with nausea, vomiting and diarrhea with loss of appetite. No unintentional wieght loss. No blood in stool or vomit. Watery BM 3/day with some mucus. Also notices change in odor of stool. Assoc with loss of energy. Also noticing joint pains in small joints of hands. No fevers or chills. Pt quite concerned as typically has severe constipation but nwo with unrelenting diarrhea. [facility] Medical History (Updated 04/26/23 @ 14:41 by Marcella Godfrey MD) Depression Anxiety Factor 5 Leiden mutation, heterozygous Asthma GERD (gastroesophageal reflux disease) IBS (irritable bowel syndrome) Bowel obstruction Endometriosis Surgical History (Updated 04/24/23 @ 15:31 by Lissett Bland) Hx of small bowel obstruction Hx of exploratory laparotomy Family History (Updated 04/24/23 @ 15:26 by Lissett Bland) Maternal Uncle Gallbladder cancer Mother Gallbladder disease Maternal Grandmother Gallbladder disease Social History (Updated 04/24/23 @ 15:14 by Lissett Bland) Household Members: Family Alcohol intake: current Alcohol intake frequency: holidays/special occasions only Patient Tobacco Use Status: Never used Tobacco Use of substances other than those prescribed or required for medical reasons: No Review of Systems Const All systems reviewed & are unremarkable except as noted in HPI and below Physical Exam Vital Signs: Last Vital Signs Pulse 98 04/24/23 15:16 BP 117/63 04/24/23 15:16 BMI result Body Mass Index 26.2 Gen appear: NAD, pale appearing HEENT: nonicteric, no cervical lymphadenopathy Chest: CTA CVS: Regular S1/S2 Abd: soft, nontender, nondistended, bowel sounds + Ext: no peripheral edema Neuro: A/Ox3, noted to move all extremities spontaneously Psych: interacting appropriately Assessment & Plan Assessment & Plan (1) Chronic diarrhea: Code(s): K52.9 - Noninfective gastroenteritis and colitis, unspecified (2) Sigmoid thickening: Code(s): K63.9 - Disease of intestine, unspecified Plan Ddx include inflammatory or infectious colitis. Ischemic colitis less likely in this young female without any vascular risk factors. Labs and stool studies ordered as below. We will also set her up for EGD/colo to complete evaluation. Will try to expedite this within the next 4-6 weeks. Follow up after endoscopy Orders: Orders C Reactive Protein 04/24/23 K52.9 - Noninfective gastroenteritis and colitis, unspecified Calprotectin, Fecal 04/24/23 K52.9 - Noninfective gastroenteritis and colitis, unspecified Transglutaminase IgA 04/24/23 K52.9 - Noninfective gastroenteritis and colitis, unspecified Immunoglobulin A 04/24/23 K52.9 - Noninfective gastroenteritis and colitis, unspecified CDiff Gene PCR 04/24/23 K52.9 - Noninfective gastroenteritis and colitis, unspecified Complete Blood Count no Diff 04/24/23 K52.9 - Noninfective gastroenteritis and colitis, unspecified Comprehensive Met. Panel 04/24/23 K52.9 - Noninfective gastroenteritis and colitis, unspecified IRON PROFILE 04/24/23 K52.9 - Noninfective gastroenteritis and colitis, unspecified Ferritin 04/24/23 K52.9 - Noninfective gastroenteritis and colitis, unspecified Prothrombin Time INR 04/24/23 K52.9 - Noninfective gastroenteritis and colitis, unspecified Vitamin B12 and Folate 04/24/23 K52.9 - Noninfective gastroenteritis and colitis, unspecified GI Panel 04/24/23 K52.9 - Noninfective gastroenteritis and colitis, unspecified TSH reflex Free T4 04/24/23 K52.9 - Noninfective gastroenteritis and colitis, unspecified Coding Level of Care Code New Pt Level 4 (53554) Diagnoses Chronic diarrhea K52.9 Sigmoid thickening K63.9
[2023-04-24 15:16] VITALS: BP 117/63; PULSE 98; BMI 26.2
== END 2023-04-24 17:28 | disposition home or self-care (01) ==
PROVIDERS: Visit Provider Internal Medicine
DX: K52.9 Noninfective gastroenteritis and colitis, unspecified (principal); K63.9 Disease of intestine, unspecified
CPT/HCPCS: 99204

== ENCOUNTER 2023-04-24 14:57 | Outpatient (REF) | payer OTHER, SELFPAY ==
[2023-04-24 18:17] LABS: Hematocrit 40.8 % (37.0-47.0); Hemoglobin 13.7 g/dl (12.0-16.0); Mean Corpuscular HGB Conc 33.6 g/dl (31.0-35.0); Mean Corpuscular Hemoglobin 28.5 pg (27.0-33.0); Mean Platelet Volume 10.3 fL (9.4-12.3); Platelet Count 316 X10*3/uL (160-400); Red Cell Distribution Width 12.7 % (11.0-16.0); White Blood Count 8.4 X10*3/uL (4.8-10.8)
[2023-04-24 18:43] LABS: Alanine Aminotransferase 19 U/L (0-31); Albumin Level 4.8 g/dL (3.5-5.0); Alkaline Phosphatase 84 U/L (39-117); Anion Gap 15 (12-20); Aspartate Amino Transferase 17 U/L (5-31); Bilirubin Total 1.2 mg/dL (0.0-1.0); Blood Urea Nitrogen 12 mg/dL (9-16); C Reactive Protein 0.11 mg/dL (< or = 0.50); Calcium 9.7 mg/dL (8.4-10.2); Carbon Dioxide 22 mmol/L (22-29); Chloride 109 mmol/L (96-108); Estimated Glomerular Filt Rate > 60; Glucose Random 98 mg/dL (60-115); Iron 123 mcg/dL (30-160); Percent Iron Saturation 37 % (15-50); Potassium 4.1 mmol/L (3.3-5.1); Sodium 142 mmol/L (135-145); Total Iron Binding Capacity 331 mcg/dL (228-428); Unsaturated Iron Binding 208 ug/dL
[2023-04-24 18:53] LABS: Ferritin 18 ng/mL (10-122); TSH reflex Free T4 1.63 uIU/mL (0.32-4.0)
[2023-04-24 19:09] LABS: Folate 8.4 ng/mL (> or = 4.0); Vitamin B12 429 pg/mL (200-900)
[2023-04-27 13:49] LABS: Immunoglobulin A 172 mg/dL (47-310)
[2023-04-27 21:09] LABS: Transglutaminase IgA <1.0 U/mL
== END 2023-04-24 14:58 | disposition home or self-care (01) ==
LOC: HO.LAB 14:57
PROVIDERS: PCP Pediatrics; Visit Provider Internal Medicine
DX: Z01.818 Encounter for other preprocedural examination (principal); K52.9 Noninfective gastroenteritis and colitis, unspecified; K63.9 Disease of intestine, unspecified; R10.84 Generalized abdominal pain; R11.2 Nausea with vomiting, unspecified; R63.0 Anorexia; Z79.899 Other long term (current) drug therapy
CPT/HCPCS: 36415; 80053; 82607; 82728; 82746; 82784; 83540; 84443; 85027; 85610; 86140; 86364

== ENCOUNTER 2023-04-28 12:31 | Day surgery (SDC) | payer OTHER, SELFPAY ==
--- NOTE | 2023-04-27 13:58 | HO.ANESPROP2 ---
HPI - Anesthesia Eval Consult details Narrative: 22yo F for Upper Endoscopy and Colonoscopy Hx intussusception as child, hx sbo with ex lap/resection 2020 Factor V, no anticoag, no hx clots PMFSH Active Problems Active Problems: All Active Problems (Updated 04/26/23 @ 14:41 by Marcella Godfrey MD) Sigmoid thickening (Acute) Chronic diarrhea (Acute) Past Medical History Medical History (Updated 04/26/23 @ 14:41 by Marcella Godfrey MD) Depression Anxiety Factor 5 Leiden mutation, heterozygous Asthma GERD (gastroesophageal reflux disease) IBS (irritable bowel syndrome) Bowel obstruction Endometriosis Family History Family History (Updated 04/24/23 @ 15:26 by Lissett Bland) Maternal Uncle Gallbladder cancer Mother Gallbladder disease Maternal Grandmother Gallbladder disease Surgical History Surgical History (Updated 04/24/23 @ 15:31 by Lissett Bland) Hx of small bowel obstruction Hx of exploratory laparotomy Social History Social History (Updated 04/24/23 @ 15:14 by Lissett Bland) Household Members: Family Alcohol intake: current Alcohol intake frequency: holidays/special occasions only Patient Tobacco Use Status: Never used Tobacco Meds Allergies Allergy/AdvReac Type Severity Reaction Status Date / Time prochlorperazine Allergy Unknown Verified 04/24/23 15:10 [From Compazine] codeine AdvReac Vomiting Verified 04/24/23 15:10 Home Medications Medication Instructions Recorded Confirmed Last Taken Type budesonide-formoterol HFA 80 2 puff inhalation Q12H 04/24/23 Unknown History mcg-4.5 mcg/actuation aerosol inhaler (Symbicort) dexlansoprazole 60 mg 60 mg PO DAILY 04/24/23 Unknown History capsule,biphase delayed release escitalopram oxalate 20 mg tablet 20 mg PO DAILY 04/24/23 Unknown History medroxyprogesterone 150 mg/mL 150 mg IM [id number] 04/24/23 Unknown History intramuscular suspension prucalopride 2 mg tablet 2 mg PO DAILY 04/24/23 Unknown History (Motegrity) Exam Pertinent Lab Results Pertinent Lab Results: Laboratory Tests 04/24/23 16:29 WBC 8.4 Hgb 13.7 Hct 40.8 Plt Count 316 Sodium 142 Potassium 4.1 Chloride 109 H Carbon Dioxide 22 BUN 12 Creatinine 0.85 Narrative Narrative: CT abdomen pelvis w IV con 04/2023 IMPRESSION: 1. There is a patent appearing, somewhat patulous left lower quadrant small bowel anastomosis. No bowel obstruction, free intraperitoneal air or abscess is seen. There is no focal bowel wall thickening. No appendicitis or diverticulitis is seen. 2. No urinary calculus or obstruction is seen. The left kidney is ptotic. 3. There are shotty, nonpathologically enlarged pericecal lymph nodes, likely reactive. No sizable abdominopelvic lymphadenopathy is seen. There is no ascites. Assessment and Plan Assessment Anesthesia Assessment: Chart Reviewed
[2023-04-28 13:40] VITALS: BMI 26.6
[2023-04-28 14:05] VITALS: BP 118/79; PULSE 84; RESP 16; TEMP 37.1; O2SAT 98
[2023-04-28 14:13] LABS: UPreg QC Valid YES; Urine Pregnancy NEGATIVE (NEGATIVE)
--- NOTE | 2023-04-28 14:14 | P.CONAN_ITS ---
FORM[facility] Active Problems Active Problems: All Active Problems (Updated 04/26/23 @ 14:41 by Marcella Godfrey MD) Sigmoid thickening (Acute) Chronic diarrhea (Acute) Past Medical History Medical History Depression Anxiety Factor 5 Leiden mutation, heterozygous Asthma GERD (gastroesophageal reflux disease) IBS (irritable bowel syndrome) Bowel obstruction Endometriosis Functional capacity: independent ambulation Family History Family History Maternal Uncle Gallbladder cancer Mother Gallbladder disease Maternal Grandmother Gallbladder disease Family history of problems with anesthesia: No Surgical History Surgical History Hx of small bowel obstruction Hx of exploratory laparotomy History of Problems with Anesthesia: No Social History Social History Household Members: Family Alcohol intake: current Alcohol intake frequency: holidays/special occasions only Patient Tobacco Use Status: Never used Tobacco Use of substances other than those prescribed or required for medical reasons: No Are you DNR?: No Advance Directives: No Advance Directives Information Provided: Yes Meds Allergies Allergy/AdvReac Type Severity Reaction Status Date / Time prochlorperazine Allergy Unknown Verified 04/28/23 13:46 [From Compazine] codeine AdvReac Vomiting Verified 04/28/23 13:46 Active Medications: Current Medications Albuterol Sulfate (Albuterol Sulfate (0.083%) 2.5 Mg/3 Ml Vial.Neb) 2.5 mg INHALE ONCE PRN PRN Reason: Shortness of Breath/Wheezing Lactated Ringer's (Lr) 1,000 mls @ 100 mls/hr IVCONT .Q10H [facility] Home Medications Medication Instructions Recorded Confirmed Last Taken Type budesonide-formoterol HFA 80 2 puff inhalation Q12H 04/24/23 Unknown History mcg-4.5 mcg/actuation aerosol inhaler (Symbicort) dexlansoprazole 60 mg 60 mg PO DAILY 04/24/23 Unknown History capsule,biphase delayed release escitalopram oxalate 20 mg tablet 20 mg PO DAILY 04/24/23 Unknown History medroxyprogesterone 150 mg/mL 150 mg IM [id number] 04/24/23 Unknown History intramuscular suspension prucalopride 2 mg tablet 2 mg PO DAILY 04/24/23 Unknown History (Motegrity) Exam Height,Weight and Vital Signs: Height 5 ft 7 in Weight 77.111 kg Last Vital Signs Temp 98.8 F 04/28/23 14:05 Pulse 84 04/28/23 14:05 Resp 16 04/28/23 14:05 BP 118/79 04/28/23 14:05 Pulse Ox 98 04/28/23 14:05 O2 Del Method Room Air 04/28/23 14:05 Pertinent Lab Results Pertinent Lab Results: Laboratory Tests 04/28/23 13:40 Urine Test NEGATIVE Airway Mallampati Class: II TM Dist: >3cm Neck ROM: Full Heart: RRR Lungs: CTA Assessment and Plan Assessment Anesthesia Assessment: Anesthesia Plan Discussed Final Anesthetic Review Family History of Problems with Anesthesia: No History of Problems with Anesthesia: No NPO: Yes ASA Class: II Final Preanesthetic Review: Meds/Allgs Chart Reviewed, Consent Obtained/Reviewed and Anes Risks/Benef Reviewed Patient Risk: Low Procedure Risk: Low Anesthetic Plan Anesthetic Plan: MAC: Disposition: Standard PACU
[2023-04-28] MEDS: Lactated Ringers 1,000 ML 100 ML IVCONT (14:45)
--- NOTE | 2023-04-28 14:52 | MHC.SHP ---
Pre-Procedural Eval Section A - 24 Hr Update-Section A only Date of Service: 04/28/23 The patient is an INPATIENT: No The patient has been examined within 24 hours of the surgical procedure. The History & Physical has been completed within 30 days and I have reviewed it.: Yes Section B - Complete if H&P > 30 days Chief Complaint: Noninfective gastroenteritis and colitis, Allergies: Allergies Allergy/AdvReac Type Severity Reaction Status Date / Time prochlorperazine Allergy Unknown Verified 04/28/23 13:46 [From Compazine] codeine AdvReac Vomiting Verified 04/28/23 13:46 Plan Diagnosis/Plan: Unchanged I have reviewed the history and physical and performed a pertinent physical examination on my patient. No changes have occurred unless specified. Time Spent With Patient Time: Total time managing care of this patient today ____ minutes.
[2023-04-28 15:29] VITALS: BP 100/57; PULSE 81; RESP 20; TEMP 36.2; O2SAT 96
[2023-04-28 15:44] VITALS: BP 107/74; PULSE 77; RESP 20; O2SAT 100
[2023-04-28 15:59] VITALS: BP 113/73; PULSE 72; RESP 17; O2SAT 99
--- NOTE | 2023-04-28 16:00 | P.OP_ITS ---
Operative Note Operative Note Date of Service: 04/28/23 Narrative: Procedure: Upper endoscopy and colonoscopy Indication: Chronic diarrhea, abnormal CT scan Endoscopist: Marcella Godfrey MD Anesthesia Provider: Dr Malachi Welch Anesthesia type: MAC Instrument: Olympus [id number] ?? EGD Procedure:?? The procedure, indications, preparation and potential complications were reviewed with the patient, who indicated understanding and gave written informed consent to proceed. A physical exam was performed. The endoscope was introduced through the mouth, and advanced to the third part of duodenum. The mucosa was carefully examined on slow withdrawal of the endoscope. The patient tolerated the procedure well. There were no immediate complications.? ? EGD Findings:? * Esophagus:? Normal mucosa noted in the entire esophagus. The Z line was at 39 cm. Cold forceps biopsies were taken from lower esophagus for histology. * Stomach:? Normal gastric mucosa was noted in the whole stomach. Retroflexion was performed in the cardia. Random cold forceps gastric biopsies were taken to rule out H Pylori infection. R * Duodenum:? Normal mucosa was noted in the whole of the examined duodenum. Cold forceps biopsies were taken from the duodenal bulb and 2nd portion of the duodenal to rule out celiac sprue. Colonoscopy Procedure: The patient was then turned for the colonoscopy. A digital rectal exam was performed which was normal. A distal attachment cap was affixed to the tip of the scope and the colonoscope was then inserted through the anus and advanced through the colon to the cecum at 75 cm and terminal ileum. Appendiceal orifice and ileocecal valve were identified. Mucosa was carefully examined under high definition white light as the instrument was slowly withdrawn in a retrograde panoramic fashion. Retroflexion was performed in rectum. The procedure was not difficult. There were no immediate obvious complications. The quality of the prep was BBPS: 2+3+3 = adequate Withdrawal time 7 minutes. Limitations: No limitations. Colonoscopy Findings: Mucosa: Normal to cecum and terminal ileum. Cold forceps biopsies were taken from the right and left side of the colon to rule out microscopic colitis. Protruding lesions: * Small internal hemorrhoids without stigmata of recent bleeding. Impressions:? * Normal esophagus (biopsy) * Normal stomach (biopsy) * Normal duodenum (biopsy) * Normal colon mucosa and terminal ileum mucosa (biopsy) * Small hemorrhoids Recommendations: - Follow path results. - DDx: Post infectious IBS vs IBD in remission since pt received corticosteroids from ER (pred 80mg/day x 7 days). If bx negative, will send [facility] IBD panel.
[2023-04-28 16:14] VITALS: BP 103/63; PULSE 67; RESP 16; TEMP 36.7; O2SAT 100
== END 2023-04-28 16:53 | disposition home or self-care (01) ==
PROVIDERS: Nurse Practitioner; PCP Pediatrics; Visit Provider Internal Medicine
PROC: (CPT 45380; principal; 2023-04-28 13:50)
DX: K52.9 Noninfective gastroenteritis and colitis, unspecified (principal); R93.3 Abnormal findings on diagnostic imaging of other parts of digestive tract; K64.8 Other hemorrhoids; K63.9 Disease of intestine, unspecified; Z90.49 Acquired absence of other specified parts of digestive tract; R53.83 Other fatigue; R63.0 Anorexia; D68.51 Activated protein C resistance; K21.9 Gastro-esophageal reflux disease without esophagitis; F32.A Depression, unspecified; F41.9 Anxiety disorder, unspecified; J45.909 Unspecified asthma, uncomplicated; Z79.51 Long term (current) use of inhaled steroids; Z79.899 Other long term (current) drug therapy; Z88.5 Allergy status to narcotic agent; Z88.8 Allergy status to other drugs, medicaments and biological substances
CPT/HCPCS: 45380; 43239; 81025; 88305; 88313; 88342; J2704

== ENCOUNTER → 2023-04-28 12:31 | Outpatient (BNV) | payer OTHER, SELFPAY | PROVIDERS: PCP Pediatrics; Visit Provider Internal Medicine | DX: K52.9 Noninfective gastroenteritis and colitis, unspecified (principal); R93.3 Abnormal findings on diagnostic imaging of other parts of digestive tract | CPT/HCPCS: 43239; 45380 ==

== ENCOUNTER 2023-05-01 14:38 | Outpatient (REF) | payer OTHER, SELFPAY ==
[2023-05-01 16:26] LABS: CDiff Gene PCR NEGATIVE (Negative)
[2023-05-07 16:44] LABS: Calprotectin, Fecal 134 mcg/g
== END 2023-05-01 14:39 | disposition home or self-care (01) ==
LOC: HO.LNP 14:38
PROVIDERS: Visit Provider Internal Medicine
DX: K52.9 Noninfective gastroenteritis and colitis, unspecified (principal)
CPT/HCPCS: 83993; 87493

== ENCOUNTER 2023-05-13 15:07 | Outpatient (AMB) | payer OTHER, SELFPAY ==
--- NOTE | 2023-05-13 15:08 | MHC.OFFVIS ---
Intake Intake Visit Reasons: follow up EGD Intake Note: Laura presents as a video call today for results to her EGD and COLO. CC: States that she is feeling the same as she was before and no new concerns at this time. Allergies prochlorperazine [From Compazine] Allergy (Verified 05/13/23 15:08) Unknown codeine Adverse Reaction (Verified 05/13/23 15:08) Vomiting HPI HPI Comments History of Present Illness Details 22 y.o F with PMH of partial small bowel resection 2020, intessuseption 2003 ([facility]), IBS, GERD who is here for abd complaints as below. 04/24/23: Pt reports longstanding issues with constipation and has been on multiple meds for this including senna, miralax, amitiza and more recently on motegrity (Dr Vo at [facility]). Has also sought different opinions at [facility] with Dr Wong as well as GI in [place]. More recently, pt has been experiencing middle abdominal pain with diarrhea. Back in Mar 2023 was seen in ER - at that time was thought to be secondary to a viral infection. Then had another flare last week of severe abd pain with nausea, vomiting and diarrhea with loss of appetite. No unintentional wieght loss. No blood in stool or vomit. Watery BM 3/day with some mucus. Also notices change in odor of stool. Assoc with loss of energy. Also noticing joint pains in small joints of hands. No fevers or chills. Pt quite concerned as typically has severe constipation but nwo with unrelenting diarrhea. 04/28/23: Impressions:? Normal esophagus (biopsy) Normal stomach (biopsy) Normal duodenum (biopsy) Normal colon mucosa and terminal ileum mucosa (biopsy) Small hemorrhoids Path A. Duodenum, biopsy: Duodenal mucosa within normal limits. B. Stomach, random, biopsy: Antral-type and oxyntic mucosa with moderate chronic inactive inflammation; no Helicobacter organisms seen. C. Esophagus, lower, biopsy: Squamous mucosa within normal limits; no inflammation seen. D. Colon, right, biopsy: Colonic mucosa within normal limits. E. Colon, left, biopsy: Colonic mucosa within normal limits 05/13/23: Here as a televisit. Continues to be quite symptomatic. Has not been able to return to work. Results of EGD and colo reviewed. While the negative findings are reassuring pt is frustrated due to incongruency in sx burden and negative w.up so far. Mom also wonders if recent pred use masked underlying IBD. [facility] Medical History Depression Anxiety Factor 5 Leiden mutation, heterozygous Asthma GERD (gastroesophageal reflux disease) IBS (irritable bowel syndrome) Bowel obstruction Endometriosis Surgical History Hx of colonoscopy History of esophagogastroduodenoscopy (EGD) Hx of small bowel obstruction Hx of exploratory laparotomy Family History Maternal Uncle Gallbladder cancer Mother Gallbladder disease Maternal Grandmother Gallbladder disease Social History Household Members: Family Alcohol intake: current Alcohol intake frequency: holidays/special occasions only Patient Tobacco Use Status: Never used Tobacco Review of Systems Const All systems reviewed & are unremarkable except as noted in HPI and below Physical Exam Vital Signs: televisit: NAD Speaking in full sentences No facial asymmetry Assessment & Plan Assessment & Plan (1) Chronic diarrhea: Code(s): K52.9 - Noninfective gastroenteritis and colitis, unspecified (2) Diffuse abdominal pain: Code(s): R10.84 - Generalized abdominal pain Plan Reviewed that infectious and inflammatory colitis virtually ruled out. Would disregard mildly elevated fecal calpro as sample collected a few days after extensive colon bx done. However can check [facility] IBD panel if concerned for remission from steroid use recently. 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 in Other ddx include angioedema of gut, abd migraine, MCAS, intermittent porphyria (though typically sx are episodic). Plan: - Labs ordered as below - Although does not quite fulfill IBS criteria (pain unchanged with defecation) with informed decision making pt agrees with trialing Nortriptyline for neuromodulation. To be started at 10mg PO at night x14 days and then increase to 20mg - Expectation set that improvement from TCA is expected in at least 6-8 weeks - Pt and mother request other modalities of pain management as tylenol and NSAIDs have not been helpful. 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 Follow up 8 weeks Orders: Orders Tryptase 05/15/23 K52.9 - Noninfective gastroenteritis and colitis, unspecified, R10.84 - Generalized abdominal pain Porphyrins Fractionated 24Hr 05/13/23 K52.9 - Noninfective gastroenteritis and colitis, unspecified, R10.84 - Generalized abdominal pain [facility] IBD SGI 05/15/23 K52.9 - Noninfective gastroenteritis and colitis, unspecified, R10.84 - Generalized abdominal pain Complement C4 05/15/23 K52.9 - Noninfective gastroenteritis and colitis, unspecified, R10.84 - Generalized abdominal pain Medications: New oxycodone Partial Fill upon patient request. 10 mg (2 x 5 mg) PO BID PRN 10 tabs 0RF pain nortriptyline Take 1 cap x 14 days and then increase to 2 caps x 8 weeks 20 mg (2 x 10 mg) PO BEDTIME 90 caps 0RF oxycodone Partial Fill upon patient request. 10 mg (2 x 5 mg) PO BID PRN 10 tabs 0RF pain Coding Level of Care Code Tele Est Pt Level 4 (19374) Diagnoses Chronic diarrhea K52.9 Diffuse abdominal pain R10.84
== END 2023-05-13 16:25 | disposition home or self-care (01) ==
LOC: HO.HGI 15:07
PROVIDERS: PCP Pediatrics; Visit Provider Internal Medicine
DX: K52.9 Noninfective gastroenteritis and colitis, unspecified (principal); R10.84 Generalized abdominal pain
CPT/HCPCS: 99214

== ENCOUNTER → 2023-05-13 15:07 | Outpatient (BNVA) | payer OTHER, SELFPAY | PROVIDERS: PCP Pediatrics; Visit Provider Internal Medicine ==

== ENCOUNTER 2023-05-15 13:54 | Outpatient (REF) | payer OTHER, SELFPAY | END 2023-05-15 13:55 | disposition home or self-care (01) | LOC: HO.LAB 13:54 | PROVIDERS: PCP Pediatrics; Visit Provider Internal Medicine | DX: R10.84 Generalized abdominal pain (principal); K52.9 Noninfective gastroenteritis and colitis, unspecified | CPT/HCPCS: 36415; 81405; 81479; 82397; 83520; 86140; 86160; 88346; 88350 ==

== ENCOUNTER 2023-08-05 23:52 | Inpatient (IN) | payer OTHER, SELFPAY ==
--- NOTE | ~2023-08-05 | CT_ITS ---
EXAMINATION: CT HEAD WITHOUT CONTRAST (STROKE PROTOCOL) CLINICAL INFORMATION: Left arm weakness, headache COMPARISON: None. TECHNIQUE: Contiguous axial imaging was performed from the skull base to vertex without intravenous contrast. Sagittal and coronal reformatted images were obtained. This CT examination was performed using dose optimization techniques as appropriate, variously including the following: * Automated exposure control * Adjustment of mA and/or kV according to patient size (this includes techniques or standardized protocols for targeted exams where dose is matched to indication/reason for exam; i.e. extremities or head) Use of iterative reconstruction technique DLP: 627 mGy-cm FINDINGS: The ventricles and sulci are normal in size and configuration without significant volume loss or hydrocephalus. There is no abnormal attenuation within the brain parenchyma. No territorial loss of jackson-white differentiation. No acute intracranial hemorrhage or extra-axial fluid collection. No mass lesion, significant mass effect, or herniation pattern. The orbits are grossly normal. Paranasal sinuses and mastoid air cells are well aerated. Osseous structures are intact. CT/CT head for stroke IMPRESSION: No acute intracranial abnormality. Specifically, no CT evidence of acute intracranial hemorrhage, significant mass effect, hydrocephalus, or large territorial infarction. This critical result was discussed with Dr. Perry at 12:48 AM on 08/06/2023 and it was ascertained that the content and urgency of the report was understood at the time of direct communication.
--- NOTE | ~2023-08-05 | CT_ITS ---
EXAMINATION: CT ANGIOGRAM HEAD CT ANGIOGRAM NECK CLINICAL INFORMATION: Reason for Exam Left arm weakness, headache R/O clot/dissection COMPARISON: None. TECHNIQUE: Test bolus sequences followed by intravenous administration 80 mL of Omnipaque 350. Helical imaging was performed in the axial plane from the aortic arch to the skull vertex. Delayed postcontrast imaging of the head was also performed. The data was processed at the mechanical technologist's workstation for generation of MIP sequences. Angled MIPs and volume rendered reformatted images were also generated at an offline 3D workstation. Stenoses are assessed in accordance with Denis et al. Quantification of Carotid Stenosis on CT Angiography. AJR 2006. 27(1):13-19. This CT examination was performed using dose optimization techniques as appropriate, variously including the following: *Automated exposure control *Adjustment of mA and/or kV according to patient size (this includes techniques or standardized protocols for targeted exams where dose is matched to indication/reason for exam; i.e. extremities or head) *Use of iterative reconstruction technique DLP: 1442.06 mGy-cm FINDINGS: CT HEAD: Noncontrast head CT findings discussed separately.. No pathologic intra-axial enhancement or regional oligemia. CTA HEAD: Arteriovenous timing limits assessment of the distal intracranial arterial vasculature. No hemodynamically significant stenosis or occlusion in the anterior or posterior circulation. No aneurysms and no high flow vascular malformations. Timing of the contrast bolus allows assessment of the major dural venous sinuses, which all opacify normally CTA NECK: Classic 3 vessel branching pattern of the aortic arch. Origins of the great vessels are widely patent. The common carotid arteries are widely patent. The carotid bifurcations and bilateral internal carotid arteries are normal. The vertebral arteries are codominant The vertebral artery ostia are widely patent. Both vertebral arteries are widely patent throughout their extracranial cervical course. CT NECK: Few coarsely calcified left palatine tonsilloliths. Enlarged heterogeneous and multinodular thyroid goiter with dominant left thyroid nodule measuring 2.7 cm craniocaudal dimension. There are a couple fine calcifications within several left thyroid lobe nodules. Largely nonpathologic size criteria bilateral level 6 lymph nodes, one on the left which is borderline measuring 1.0 cm. A few small disc protrusions are seen at C3-C4, C4-C5, and C5-C6. CT/CT angio head neck stroke IMPRESSION: 1. No acute arterial occlusion or hemodynamically significant stenosis within the head or neck. 2. Enlarged multinodular thyroid goiter with dominant left thyroid nodule measuring 2.7 cm craniocaudal dimension; further evaluation with thyroid ultrasound advised. Largely nonpathologic size criteria bilateral level 6 lymph nodes, one on the left which is borderline measuring 1.0 cm.
--- NOTE | ~2023-08-05 | MR_ITS ---
MR BRAIN WITHOUT CONTRAST CLINICAL INFORMATION: Question acute CVA. COMPARISON: CT head and CTA head and neck 08/06/2023. TECHNIQUE: MRI of the brain was obtained using routine sequences without contrast. FINDINGS: There is no hydrocephalus, extra-axial surface collection, or herniation. No parenchymal signal abnormality. The major flow voids at the skull base are preserved. There is no acute infarct on diffusion-weighted imaging. There is no intracranial hemorrhage on the gradient recalled echo acquisition. The midline structures are normal. The cerebellar tonsils are normally positioned. The cerebellum and brainstem are normal. The craniocervical junction is normal. Osseous marrow signal intensity is homogenous. The visualized soft tissues are unremarkable. MR/MR head/brain wo con IMPRESSION: No acute intracranial findings. No acute infarcts.
--- NOTE | ~2023-08-05 | US_ITS ---
EXAMINATION: US THYROID CLINICAL INFORMATION: Enlarged multinodular goiter imaging. COMPARISON: CTA head and neck 08/06/2023. TECHNIQUE: Linear transducer grayscale and color Doppler examination with attention to the region of the thyroid. FINDINGS: SIZE: Measurements of the thyroid lobes and nodules are given in sagittal, anteroposterior and transverse dimensions respectively. Right Thyroid Lobe: 5.0 x 1.7 x 1.5 cm, volume 6.5 mL. Parenchyma: The gland echotexture is homogeneous. Thyroid vascularity is normal. Left Thyroid Lobe: 5.1 x 2.2 x 1.9 cm, volume 10.9 mL. Parenchyma: The gland echotexture is heterogeneous. Thyroid vascularity is increased. Isthmus: 0.3 cm in maximum AP dimension. Estimated total number of nodules greater than or equal to 1 cm: 1. Analyzer Sales nodules are described as follows: 1. Location: Left mid. Size: 2.9 x 2.2 x 1.6 cm, volume 5.3 mL. Nodule characteristics: Composition: Solid (2). Echogenicity: Isoechoic (1). Shape: Taller than wide (3). Margins: Ill-defined (0). Echogenic Foci: Punctate echogenic foci (3). ACR TI-RADS total points: 9 ACR TI-RADS category: 5 NODES: At the left cervical level 2, there is a 1.0 x 0.3 x 0.7 cm reniform lymph node, with normal architectural features. At the level 3, there are 1.3 x 0.3 x 0.9 cm and 1.1 x 0.2 x 0.4 cm reniform lymph nodes, with normal architectural features. No sizable lymphadenopathy is seen. US/US thyroid IMPRESSION: 1. A 2.9 cm in maximal diameter left thyroid lobe TR 5 nodule meets ACR biopsy criteria and is amenable to ultrasound-guided biopsy, if clinically indicated and not already performed. 2. There are shotty, nonpathologically enlarged left cervical level 2 and 3 lymph nodes. No sizable lymphadenopathy is seen. ACR TI-RADS RECOMMENDATION REFERENCE: Ultrasound-guided fine-needle aspiration, followup ultrasound, no further follow up. * TR1 (0 point) and TR2 (2 points): No FNA or follow up. * TR3 (3 points): FNA if more than or equal to 2.5 cm in maximum dimension, followup ultrasound in 1, 3 and 5 years if 1.5 to 2.4 cm in maximum dimension. * TR4 (4-6 points): FNA if more than or equal to 1.5 cm in maximum dimension, followup ultrasound in 1, 2, 3 and 5 years if 1 to 1.4 cm in maximum dimension. * TR5 (more than or equal to 7 points): FNA if more than or equal to 1 cm in maximum dimension, followup ultrasound every year for 5 years if 0.5 to 0.9 cm in maximum dimension. * TR3, TR4 or TR5 nodules that are below the size threshold for followup receive no follow up.
[2023-08-05 23:58] VITALS: BP 148/94; PULSE 99; RESP 20; TEMP 37.1; O2SAT 99; BMI 25.1
--- NOTE | 2023-08-06 | ECG_ITS ---
Test Reason : STROKE PROTOCOL Blood Pressure : / mmHG Vent. Rate : 074 BPM Atrial Rate : 074 BPM P-R Int : 138 ms QRS Dur : 082 ms QT Int : 378 ms P-R-T Axes : 051 065 032 degrees QTc Int : 419 ms Normal sinus rhythm Normal ECG No previous ECGs available Referred By: Ulises Perry Electronically Signed By:DARREN ZARAGOZA MD
--- NOTE | 2023-08-06 00:23 | ED.HA ---
HPI - Headache General Chief Complaint: Headache Stated Complaint: bad headache/left arm numb/nauseous Time Seen by Provider: 08/06/23 00:23 Source: patient and family ([place]) Mode of arrival: ambulatory Limitations: no limitations History of Present Illness ED Provider: Dr. Ulises Perry HPI Narrative: 22-year-old female with a history of factor 5 Leiden deficiency, asthma, IBS, GERD, endometriosis who presents emergency department for evaluation of headache left arm numbness and left arm heaviness. The patient states that she had a sudden onset of headache at 21:45 hours. She states that she was at rest when the symptoms started. She describes the headache as a pressure-like sensation located throughout her entire head. The headache is 8/10 at its worst. The patient had associated nausea with no vomiting. She states that her symptoms persisted therefore she came to the emergency department for evaluation. The patient states that she rarely gets headaches and she has never had a migraine headache. Related Data Home Medications ?Medication ?Instructions ?Recorded ?Confirmed budesonide-formoterol HFA 80 2 puff inhalation Q12H 04/24/23 mcg-4.5 mcg/actuation aerosol inhaler (Symbicort) dexlansoprazole 60 mg 60 mg PO DAILY 04/24/23 capsule,biphase delayed release escitalopram oxalate 20 mg tablet 20 mg PO DAILY 04/24/23 medroxyprogesterone 150 mg/mL 150 mg IM [id number] 04/24/23 intramuscular suspension prucalopride 2 mg tablet 2 mg PO DAILY 04/24/23 (Motegrity) Previous Rx's ?Medication ?Instructions ?Recorded ketorolac 10 mg tablet 10 mg PO Q8H PRN pain 3 days #9 03/12/23 tabs ondansetron 4 mg disintegrating 4 mg PO Q6H PRN nausea and 03/12/23 tablet vomiting #20 tabs ketorolac 10 mg tablet 10 mg PO TID PRN pain 5 days #14 04/17/23 tabs promethazine 12.5 mg tablet 12.5 mg PO TID PRN nausea and 04/17/23 vomiting #14 tabs nortriptyline 10 mg capsule 20 mg (2 x 10 mg) PO BEDTIME #90 05/13/23 caps oxycodone 5 mg tablet 10 mg (2 x 5 mg) PO BID PRN pain 05/13/23 #10 tabs oxycodone 5 mg tablet 10 mg (2 x 5 mg) PO BID PRN pain 05/13/23 #10 tabs Allergies Allergy/AdvReac Type Severity Reaction Status Date / Time prochlorperazine Allergy Unknown Verified 08/05/23 23:59 [From Compazine] codeine AdvReac Vomiting Verified 08/05/23 23:59 Review of Systems Review of Systems: Yes all other systems are reviewed and are negative [facility] Past Medical History [facility] Narrative: Social history: 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 She denies tobacco, alcohol and drug use Medical History Depression Anxiety Factor 5 Leiden mutation, heterozygous Asthma GERD (gastroesophageal reflux disease) IBS (irritable bowel syndrome) Bowel obstruction Endometriosis Surgical History Hx of colonoscopy History of esophagogastroduodenoscopy (EGD) Hx of small bowel obstruction Hx of exploratory laparotomy Family History Family History Maternal Uncle Gallbladder cancer Mother Gallbladder disease Maternal Grandmother Gallbladder disease Social History Social History Household Members: Family Alcohol intake: current Alcohol intake frequency: holidays/special occasions only Patient Tobacco Use Status: Never used Tobacco Advance Directives: No Advance Directives Information Provided: Yes Do you have a plan to hurt others: No Plan Physical Exam Vital Signs: Vital Signs: Last Vital Signs Temp 98.8 F 08/05/23 23:58 Pulse 99 08/05/23 23:58 Resp 20 08/05/23 23:58 BP 148/94 H 08/05/23 23:58 Pulse Ox 99 08/05/23 23:58 O2 Del Method Room Air 08/05/23 23:58 BMI result Body Mass Index 25.1 Vital signs revealed an elevated respiratory rate of 20, elevated blood pressure of 148/94 Exam: General: Awake, alert in no distress Head: Normocephalic, atraumatic EENT: PERRL, Lids normal, sclera normal, conjunctiva normal, nose normal , ears normal, throat without erythema or exudates Neck: Supple, no adenopathy Lung: breath sounds symmetric, no wheezing, rales or rhonchi Chest: symmetric movement, nontender Heart: regular rate and rhythm, normal S1, S2 no murmurs or rubs Abdomen: soft, non-tender, nondistended, normal bowel sounds Back: no vertebral tenderness, no CVAT Extremities: no deformities, moves all extremities symmetrically Neuro: General: Awake, alert, oriented, normal speech Cranial nerves: cranial nerves intact Strength: Patient has no drift in either upper or lower extremities, patient does have weakness of the left upper extremity compared to the right upper extremity, lower extremity strength was symmetric Sensory: Light touch his symmetric Psych: Pleasant, cooperative NIH Stroke Scale Internal: Initial- Upon Arrival Level of Consciousness: Alert Level of Consciousness Questions: Answers both questions correctly Level of Consciousness Commands: Performs both tasks correctly Best Gaze: Normal Visual: No visual loss Facial Palsy: Normal Motor Arm (Right): No drift Motor Arm (Left): No drift Motor Leg (Right): No drift Motor Leg (Left): No drift Limb Ataxia: Absent Sensory: Normal Best Language: No aphasia Dysarthia: Normal Extinction and Inattention: No abnormality Score: 0 Medications Administered Discontinued Medications Generic Name Dose Route Start Last Admin Trade Name Freq PRN Reason Stop Dose Admin Diphenhydramine HCl 25 mg 08/06/23 00:33 08/06/23 01:00 Diphenhydramine Hcl 50 Mg/Ml Vial IVPUSH 08/06/23 00:34 25 mg ONCE ONE Administration Sodium Chloride 1,000 mls @ 999 mls/hr 08/06/23 00:45 08/06/23 01:00 Ns IV 08/06/23 01:45 999 mls/hr .Q1H1M RICCO Administration Iohexol 80 ml 08/06/23 01:00 08/06/23 01:00 Iohexol 350 Mg/Ml 100 Ml Infus..Btl IV 08/06/23 01:01 80 ml ONCE ONE Administration Morphine Sulfate 4 mg 08/06/23 00:33 08/06/23 01:00 Morphine Sulfate 4 Mg/Ml Cartridge IVPUSH 08/06/23 00:34 4 mg ONCE STA Administration Protocol Ondansetron HCl 4 mg 08/06/23 00:33 08/06/23 01:00 Ondansetron Hcl 4 Mg/2 Ml Vial IVPUSH 08/06/23 00:34 4 mg ONCE ONE Administration Medical Decision Making Medical Decision Making MDM Narrative: 22-year-old female with a history of factor 5 Leiden deficiency, asthma, IBS, GERD, endometriosis who presents emergency department for evaluation of headache left arm numbness and left arm heaviness. The patient states that she had a sudden onset of headache at 21:45 hours associated with left arm numbness and heaviness. She also had associated nausea with no vomiting. Her headache is a pressure-like sensation located throughout the top of her head, he out of 10 at its worse. Patient has no history of migraine headaches and she states that she rarely gets headaches. Vital signs revealed elevated respiratory rate and elevated blood pressure. Physical examination revealed weakness of the left upper extremity compared to the right a for extremity otherwise exam was nonfocal. Patient's NIH stroke scale was 0. Differential diagnosis: ?Includes but is not limited to stroke, TIA, complex migraine, electrolyte abnormalities, anemia Following evaluation was ordered: CBC, CMP, PT/INR, PTT, magnesium, CT scan of the head to rule out stroke, CT angiogram head and neck rule out retrievable clot, EKG Patient was initially treated with the following: Morphine 4 mg IV, Zofran 4 mg IV, Benadryl 25 mg IV, normal saline IV x1 L Course: 00:55 My interpretation patient's laboratory evaluation is as follows: CBC was normal with a normal platelet count of [id number]. INR was normal at 1.2. The radiologist interpreted the CT scan of the brain as no acute findings, I did discuss this reading with the radiologist. CT angiogram of the head and neck did not reveal any retrievable clots. The patient does have a multinodular goiter which will need to be followed up as an outpatient with ultrasound. I did add TSH with reflex T4 to her laboratory evaluation Patient's 12 EKG revealed a normal sinus rhythm. 01:46 The patient's headache improved from 8/10 to 6/10 therefore I ordered Toradol 15 mg IV and morphine 4 mg IV to further treat her headache Her left arm heaviness did not improve. If her symptoms do not improve then she will need to be admitted for further evaluation for possible stroke. At the end of my shift, the patient's care will be turned over to my colleague, Dr. Segovia. Admission/Observation Consideration of admission/observation: Escalation of care including admission/observation considered Lab Data MDM Lab Attestation statement: I reviewed the patient's lab results. 08/06/23 00:35 08/06/23 00:33 Labs: Lab Results 08/06/23 08/06/23 08/06/23 Range/Units 00:33 00:35 00:37 WBC 7.3 (4.8-10.8) X10*3/uL RBC 4.36 (4.20-5.50) X10*6/uL Hgb 12.7 (12.0-16.0) g/dl Hct 37.1 (37.0-47.0) % MCV 85.1 (80.0-98.0) fL MCH 29.1 (27.0-33.0) pg MCHC 34.2 (31.0-35.0) g/dl RDW 12.9 (11.0-16.0) % Plt Count 284 (160-400) X10*3/uL MPV 10.0 (9.4-12.3) fL Immature Gran % (Auto) 0.3 (0.0-0.4) % Neut % (Auto) 56.0 (45-73) % Lymph % (Auto) 34.3 (20-40) % [place] % (Auto) 7.5 (2-11) % Eos % (Auto) 1.5 (0-4) % Baso % (Auto) 0.4 (0-2) % Lymph # (Auto) 2.5 (1.2-4.9) X10*3/uL [place] # (Auto) 0.6 (0.1-1.2) X10*3/uL Eos # (Auto) 0.1 (0.0-0.4) X10*3/uL Baso # (Auto) 0.0 (0.0-0.2) X10*3/uL Abs Immat Gran (auto) 0.02 (0.00-0.03) X10*3/uL Absolute Neuts (auto) 4.1 (2.0-8.3) x10*3/uL Absolute Nucleated RBC 0.000 (0.0-0.012) X10*3/uL Nucleated RBC % (auto) 0.0 (0.0-0.2) /100WBC PT (11.1-13.3) SEC Whole Blood PT 14.8 H (11.1-13.5) sec INR (0.9-1.1) Whole Blood INR 1.2 H (0.9-1.1) APTT (26.0-36.8) SEC Sodium 142 (135-145) mmol/L Potassium 3.9 (3.3-5.1) mmol/L Chloride 110 H (96-108) mmol/L Carbon Dioxide 22 (22-29) mmol/L Anion Gap 14 (12-20) BUN 14 (9-16) mg/dL Creatinine 0.85 (0.5-1.4) mg/dL Estim Creat Clear Calc 100.9 Estimated GFR > 60 POC Glucose (60-115) mg/dL Random Glucose 111 (60-115) mg/dL Calcium 9.7 (8.4-10.2) mg/dL Magnesium 2.0 (1.6-2.6) mg/dL Total Bilirubin 0.5 (0.0-1.0) mg/dL Direct Bilirubin 0.2 (0.0-0.5) mg/dL AST 13 (5-31) U/L ALT 10 (0-31) U/L Alkaline Phosphatase 92 (39-117) U/L Total Creatine Kinase 63 (26-140) U/L Troponin I High Sens < 2.7 (<3.5-17.0) ng/L Total Protein 7.3 (6.5-8.0) g/dL Albumin 4.4 (3.5-5.0) g/dL Beta HCG, Quant < 2 mIU/mL 08/06/23 08/06/23 Range/Units 01:02 01:05 WBC (4.8-10.8) X10*3/uL RBC (4.20-5.50) X10*6/uL Hgb (12.0-16.0) g/dl Hct (37.0-47.0) % MCV (80.0-98.0) fL MCH (27.0-33.0) pg MCHC (31.0-35.0) g/dl RDW (11.0-16.0) % Plt Count (160-400) X10*3/uL MPV (9.4-12.3) fL Immature Gran % (Auto) (0.0-0.4) % Neut % (Auto) (45-73) % Lymph % (Auto) (20-40) % [place] % (Auto) (2-11) % Eos % (Auto) (0-4) % Baso % (Auto) (0-2) % Lymph # (Auto) (1.2-4.9) X10*3/uL [place] # (Auto) (0.1-1.2) X10*3/uL Eos # (Auto) (0.0-0.4) X10*3/uL Baso # (Auto) (0.0-0.2) X10*3/uL Abs Immat Gran (auto) (0.00-0.03) X10*3/uL Absolute Neuts (auto) (2.0-8.3) x10*3/uL Absolute Nucleated RBC (0.0-0.012) X10*3/uL Nucleated RBC % (auto) (0.0-0.2) /100WBC PT 12.3 (11.1-13.3) SEC Whole Blood PT (11.1-13.5) sec INR 1.0 (0.9-1.1) Whole Blood INR (0.9-1.1) APTT 29.8 (26.0-36.8) SEC Sodium (135-145) mmol/L Potassium (3.3-5.1) mmol/L Chloride (96-108) mmol/L Carbon Dioxide (22-29) mmol/L Anion Gap (12-20) BUN (9-16) mg/dL Creatinine (0.5-1.4) mg/dL Estim Creat Clear Calc Estimated GFR POC Glucose 108 (60-115) mg/dL Random Glucose (60-115) mg/dL Calcium (8.4-10.2) mg/dL Magnesium (1.6-2.6) mg/dL Total Bilirubin (0.0-1.0) mg/dL Direct Bilirubin (0.0-0.5) mg/dL AST (5-31) U/L ALT (0-31) U/L Alkaline Phosphatase (39-117) U/L Total Creatine Kinase (26-140) U/L Troponin I High Sens (<3.5-17.0) ng/L Total Protein (6.5-8.0) g/dL Albumin (3.5-5.0) g/dL Beta HCG, Quant mIU/mL Independent Interpretation I performed an independent interpretation of an: EKG Interpretation: My independent interpretation of the patient's 12 EKG done at 01:00 hours is as follows: Normal sinus rhythm rate of 74, normal FL interval, QRS duration QTC interval, no ST segment elevation, no ST segment depression, no PACs, no PVCs, no significant T-wave abnormalities Radiology Impression Discussion of test interpretation with radiology: I have reviewed the radiologist's reading. Radiologist Impression: CT angio head neck stroke IMPRESSION: 1. No acute arterial occlusion or hemodynamically significant stenosis within the head or neck. 2. Enlarged multinodular thyroid goiter with dominant left thyroid nodule measuring 2.7 cm craniocaudal dimension; further evaluation with thyroid ultrasound advised. Largely nonpathologic size criteria bilateral level 6 lymph nodes, one on the left which is borderline measuring 1.0 cm. Dictated By: Narda Lynne Independent Historian Clinical information obtained from an independent historian. History obtained from or confirmed by: Parent Discharge Plan Discharge Clinical Impression: Left arm weakness, Multinodular goiter Headache Qualifiers: Headache type: unspecified Headache chronicity pattern: acute headache Patient Disposition: Still a Patient Additional Instructions: The CT angiogram of your head and neck revealed an incidental voltage nodule goiter. The radiologist recommended that you get an outpatient ultrasound to further evaluate this finding. The radiology reading is below in you can share this with your PCP who can then order the ultrasound for you. CT angio head neck stroke IMPRESSION: 1. No acute arterial occlusion or hemodynamically significant stenosis within the head or neck. 2. Enlarged multinodular thyroid goiter with dominant left thyroid nodule measuring 2.7 cm craniocaudal dimension; further evaluation with thyroid ultrasound advised. Largely nonpathologic size criteria bilateral level 6 lymph nodes, one on the left which is borderline measuring 1.0 cm. Dictated By: Narda Lynne Prescriptions: No Action ondansetron 4 mg tablet,disintegrating 4 mg PO Q6H PRN (Reason: nausea and vomiting) Qty: 20 0RF ketorolac 10 mg tablet 10 mg PO Q8H PRN (Reason: pain) 3 Days Qty: 9 0RF promethazine 12.5 mg tablet 12.5 mg PO TID PRN (Reason: nausea and vomiting) Qty: 14 0RF ketorolac 10 mg tablet 10 mg PO TID PRN (Reason: pain) 5 Days Qty: 14 0RF Motegrity 2 mg tablet 2 mg PO DAILY dexlansoprazole 60 mg capsule,biphase delayed releas 60 mg PO DAILY escitalopram oxalate 20 mg tablet 20 mg PO DAILY medroxyprogesterone 150 mg/mL suspension 150 mg IM [id number] budesonide-formoterol [Symbicort] 80-4.5 mcg/actuation HFA aerosol inhaler 2 puff inhalation Q12H nortriptyline 10 mg capsule 20 mg PO BEDTIME Qty: 90 0RF Rx Instructions: Take 1 cap x 14 days and then increase to 2 caps x 8 weeks oxycodone 5 mg tablet 10 mg PO BID PRN (Reason: pain) Qty: 10 0RF Rx Instructions: Partial Fill upon patient request. oxycodone 5 mg tablet 10 mg PO BID PRN (Reason: pain) Qty: 10 0RF Rx Instructions: Partial Fill upon patient request. Print Language: Panamanian
[2023-08-06 00:40] LABS: MANUAL DIFF FLAG NO
[2023-08-06 00:40] LABS: Prothrombin Time Whole Bld POC 14.8 sec (11.1-13.5); ~PT, ~INR - Anti Coag Clinic 1.2 (0.9-1.1)
--- NOTE | 2023-08-06 00:40 | MHC.EDTECH ---
STROKE INR DONE, INR 1.2 PT 14.8 MD AWARE
[2023-08-06 00:41] LABS: Basophils Percent Auto 0.4 % (0-2); Eosinophils Absolute Auto 0.1 X10*3/uL (0.0-0.4); Eosinophils Percent Auto 1.5 % (0-4); Hematocrit 37.1 % (37.0-47.0); Hemoglobin 12.7 g/dl (12.0-16.0); Imm Gran Abs Auto 0.02 X10*3/uL (0.00-0.03); Imm Gran Pct Auto 0.3 % (0.0-0.4); Lymphocytes Absolute Auto 2.5 X10*3/uL (1.2-4.9); Lymphocytes Percent Auto 34.3 % (20-40); Mean Corpuscular HGB Conc 34.2 g/dl (31.0-35.0); Mean Corpuscular Hemoglobin 29.1 pg (27.0-33.0); Mean Corpuscular Volume 85.1 fL (80.0-98.0); Monocytes Absolute Auto 0.6 X10*3/uL (0.1-1.2); Monocytes Percent Auto 7.5 % (2-11); Neutrophils Absolute Auto 4.1 x10*3/uL (2.0-8.3); Platelet Count 284 X10*3/uL (160-400); Red Blood Count 4.36 X10*6/uL (4.20-5.50); Red Cell Distribution Width 12.9 % (11.0-16.0); White Blood Count 7.3 X10*3/uL (4.8-10.8)
[2023-08-06] MEDS: diphenhydrAMINE HCL 50 MG/ML VIAL 25 MG IVPUSH ×2 (01:00→16:28)
[2023-08-06] MEDS: ondansetron HCL 4 MG/2 ML VIAL IVPUSH (01:00)
[2023-08-06] MEDS: Morphine Sulfate 4 MG/ML CARTRIDGE IVPUSH ×2 (01:00→02:26)
[2023-08-06] MEDS: iohexoL 350 MG/ML 100 ML INFUS..BTL 80 ML IV (01:00)
[2023-08-06] MEDS: 0.9 % Sodium Chloride 1,000 ML 999 ML IV (01:00)
[2023-08-06 01:01] LABS: Troponin-I High Sensitivity < 2.7 ng/L (<3.5-17.0)
[2023-08-06 01:05] LABS: Alanine Aminotransferase 10 U/L (0-31); Albumin Level 4.4 g/dL (3.5-5.0); Alkaline Phosphatase 92 U/L (39-117); Anion Gap 14 (12-20); Aspartate Amino Transferase 13 U/L (5-31); Bilirubin Direct 0.2 mg/dL (0.0-0.5); Bilirubin Total 0.5 mg/dL (0.0-1.0); Blood Urea Nitrogen 14 mg/dL (9-16); Calcium 9.7 mg/dL (8.4-10.2); Carbon Dioxide 22 mmol/L (22-29); Chloride 110 mmol/L (96-108); Creatinine Clr Calc Pharmacy 100.9; Estimated Glomerular Filt Rate > 60; Glucose Random 111 mg/dL (60-115); HCG Quantitative < 2 mIU/mL; Potassium 3.9 mmol/L (3.3-5.1); Sodium 142 mmol/L (135-145); Total Protein 7.3 g/dL (6.5-8.0)
[2023-08-06 01:11] LABS: Glucose, Whole Blood 108 mg/dL (60-115)
[2023-08-06 01:17] LABS: Prothrombin Time 12.3 SEC (11.1-13.3)
[2023-08-06 01:20] LABS: Partial Thromboplastin Time 29.8 SEC (26.0-36.8)
[2023-08-06 01:25] LABS: Stroke Lab Use COMPLETE
[2023-08-06 02:00] VITALS: BP 126/81; PULSE 85; RESP 16; TEMP 37; O2SAT 98
[2023-08-06] MEDS: Ketorolac Tromethamine 15 MG/ML VIAL IVPUSH ×2 (02:25→16:22)
[2023-08-06 02:31] LABS: TSH reflex Free T4 2.71 uIU/mL (0.32-4.0)
--- NOTE | 2023-08-06 05:54 | P.HPHOSP_ITS ---
History of Present Illness Date of Service: 08/06/23 Chief Complaint: left arm numbness/heaviness This is a 22-year-old female with pertinent history of factor 5 Leiden deficiency, IBS, mood disorder, gastroesophageal reflux disease, asthma, endometriosis not on home oxygen who presents to the emergency department for evaluation of left arm numbness and weakness. Patient states her symptoms started suddenly at 21:45. She 1st had numbness/heaviness and weakness of her left upper extremity. This was subsequently followed by generalized headache. No history of migraines. No history of CVA. Patient's symptoms were constant and persistent and hence she presented to the ER. No fever, chills, chest discomfort, palpitations, shortness of breath, abdominal pain, changes in urinary or bowel habits. In the emergency department, Neurology was consulted who requested admission and will evaluate the patient in a.m. Review of Systems 2 Constitutional: Constitutional: Reports no additional constitutional complaints Cardiovascular: Cardiovascular: Reports no additional cardiovascular complaints Respiratory: Respiratory: Reports no additional respiratory complaints Gastrointestinal: Gastrointestinal: Reports no additional gastrointestinal complaints Genitourinary: Genitourinary: Reports no additional female genitourinary complaints Musculoskeletal: Musculoskeletal: Reports numbness Neurologic: Reports focal weakness and Reports numbness PMFSH Medical History Depression Anxiety Factor 5 Leiden mutation, heterozygous Asthma GERD (gastroesophageal reflux disease) IBS (irritable bowel syndrome) Bowel obstruction Endometriosis Family History Maternal Uncle Gallbladder cancer Mother Gallbladder disease Maternal Grandmother Gallbladder disease Surgical History Hx of colonoscopy History of esophagogastroduodenoscopy (EGD) Hx of small bowel obstruction Hx of exploratory laparotomy Social History Household Members: Family Alcohol intake: current Alcohol intake frequency: holidays/special occasions only Patient Tobacco Use Status: Never used Tobacco Smoked in Last 30 Days: No Use of substances other than those prescribed or required for medical reasons: No Advance Directives: No Advance Directives Information Provided: Yes Do you have a plan to hurt others: No Plan Meds Allergies Allergy/AdvReac Type Severity Reaction Status Date / Time prochlorperazine Allergy Unknown Verified 08/05/23 23:59 [From Compazine] codeine AdvReac Vomiting Verified 08/05/23 23:59 Home Medications ?Medication ?Instructions ?Recorded ?Confirmed ?Last Taken ?Type budesonide-formoterol HFA 80 2 puff inhalation Q12H 04/24/23 Unknown History mcg-4.5 mcg/actuation aerosol inhaler (Symbicort) dexlansoprazole 60 mg 60 mg PO DAILY 04/24/23 Unknown History capsule,biphase delayed release escitalopram oxalate 20 mg tablet 20 mg PO DAILY 04/24/23 Unknown History medroxyprogesterone 150 mg/mL 150 mg IM [id number] 04/24/23 Unknown History intramuscular suspension prucalopride 2 mg tablet 2 mg PO DAILY 04/24/23 Unknown History (Motegrity) Physical Exam 2 Vital Signs and Narrative: Vital Signs: Last Vital Signs Temp 98.6 F 08/06/23 02:00 Pulse 85 08/06/23 02:00 Resp 16 08/06/23 02:00 BP 126/81 08/06/23 02:00 Pulse Ox 98 08/06/23 02:00 O2 Del Method Room Air 08/06/23 02:00 BMI result Body Mass Index 25.1 Young female lying in bed in no distress Neck supple, no JVD Regular rate and rhythm, S1-S2 heard Regular breath sounds bilaterally, no wheezing or crackles appreciated Abdomen soft nontender, no guarding, no rigidity Patient is awake, alert and oriented to self, place, time and person ; no nystagmus, no pronator drift, left upper extremity weakness present, strength equal and 5/5 in bilateral lower extremity, tongue and uvula midline Psych: Normal mood No pedal edema Results Labs 08/06/23 00:35 08/06/23 00:33 Labs: Laboratory Results - last 24 hr 08/06/23 08/06/23 08/06/23 00:33 00:35 00:37 MCV 85.1 MCH 29.1 MCHC 34.2 RDW 12.9 Plt Count 284 MPV 10.0 Immature Gran % (Auto) 0.3 Neut % (Auto) 56.0 Lymph % (Auto) 34.3 [place] % (Auto) 7.5 Eos % (Auto) 1.5 Baso % (Auto) 0.4 Lymph # (Auto) 2.5 [place] # (Auto) 0.6 Eos # (Auto) 0.1 Baso # (Auto) 0.0 Abs Immat Gran (auto) 0.02 Absolute Neuts (auto) 4.1 Absolute Nucleated RBC 0.000 Nucleated RBC % (auto) 0.0 PT Whole Blood PT 14.8 H INR Whole Blood INR 1.2 H APTT Anion Gap 14 Estim Creat Clear Calc 100.9 Estimated GFR > 60 POC Glucose Random Glucose 111 Calcium 9.7 Magnesium 2.0 Total Bilirubin 0.5 Direct Bilirubin 0.2 AST 13 ALT 10 Alkaline Phosphatase 92 Total Creatine Kinase 63 Troponin I High Sens < 2.7 Total Protein 7.3 Albumin 4.4 TSH 2.71 Beta HCG, Quant < 2 08/06/23 08/06/23 01:02 01:05 MCV MCH MCHC RDW Plt Count MPV Immature Gran % (Auto) Neut % (Auto) Lymph % (Auto) [place] % (Auto) Eos % (Auto) Baso % (Auto) Lymph # (Auto) [place] # (Auto) Eos # (Auto) Baso # (Auto) Abs Immat Gran (auto) Absolute Neuts (auto) Absolute Nucleated RBC Nucleated RBC % (auto) PT 12.3 Whole Blood PT INR 1.0 Whole Blood INR APTT 29.8 Anion Gap Estim Creat Clear Calc Estimated GFR POC Glucose 108 Random Glucose Calcium Magnesium Total Bilirubin Direct Bilirubin AST ALT Alkaline Phosphatase Total Creatine Kinase Troponin I High Sens Total Protein Albumin TSH Beta HCG, Quant Imaging Radiologist's Impressions: Impressions Head/Neck CTA 08/06/23 01:00 IMPRESSION: 1. No acute arterial occlusion or hemodynamically significant stenosis within the head or neck. 2. Enlarged multinodular thyroid goiter with dominant left thyroid nodule measuring 2.7 cm craniocaudal dimension; further evaluation with thyroid ultrasound advised. Largely nonpathologic size criteria bilateral level 6 lymph nodes, one on the left which is borderline measuring 1.0 cm. Assessment and Plan (1) Left arm weakness: Status: Acute Plan This is a 22-year-old female with pertinent history of factor 5 Leiden deficiency, IBS, mood disorder, gastroesophageal reflux disease, asthma, endometriosis not on home oxygen who presents to the emergency department for evaluation of left arm numbness and weakness. #. Left upper extremity weakness with numbness: Will admit patient with cardiac monitoring. Obtaining MRI to rule out acute CVA. Neurology consulted from the ER, appreciate assistance. Administering aspirin. Further workup based on MRI results #. IBS: On prucalopride #. Asthma: Continue home inhalers. No exacerbation during admission #. Mood disorder: On Cymbalta #. Gastroesophageal reflux disease: On PPI Med rec pending DVT prophylaxis: Lovenox Full code Admit as inpatient and will require two night minimum hospital stay for evaluation of left arm weakness (as above), which is not possible in a lesser acute setting. Specialist consult pending Quality Stroke Does the patient have a stroke diagnosis?: No VTE Prior VTE?: No VTE Risk Level:: Medical - moderate - high VTE Device Contraindication: Treatment Not Indicated VTE Drug Contraindication: N/A - Med Ordered
[2023-08-06] MEDS: Aspirin 81 MG TAB.CHEW PO (06:11)
[2023-08-06 07:25] VITALS: BP 103/65; PULSE 87; RESP 16; O2SAT 98
[2023-08-06] MEDS: 0.9 % Sodium Chloride Flush 3 ML SYRINGE IVFLUSH (07:25)
[2023-08-06 07:27] VITALS: BP 103/65; PULSE 77; RESP 18; TEMP 36.9; O2SAT 100
--- NOTE | 2023-08-06 07:40 | PC.NURSE ---
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
[2023-08-06 07:58] VITALS: BP 131/78; PULSE 79; RESP 18; TEMP 36.9; O2SAT 99
[2023-08-06 08:23] VITALS: BMI 25.4
--- NOTE | 2023-08-06 09:42 | PHA.MEDREC ---
Pharmacy Consult ? Medication Reconciliation Pharmacy has completed the medication reconciliation. patient no longer taking pdesat-e-yfams, lexapro, nortriptyline, or oxycodone
[2023-08-06] MEDS: Acetaminophen 325 MG TABLET 650 MG PO (09:56)
[2023-08-06] MEDS: Enoxaparin Sodium 40 MG/0.4 ML SYRINGE SUBCUT (09:57)
--- NOTE | 2023-08-06 11:16 | P.CNNE_ITS ---
History of Present Illness Data of Consult Service Date: 08/06/23 Primary Care Provider: Juanita Adhikari MD [facility] Reason for consult: Headache 22 years old woman with no significant history of headaches was feeling tired and fatigued for last few months and that was investigated by her primary care physician and according to her no cause was found. During last week she had couple of episodes of left arm heaviness lasting for couple of minutes that she did not pay much attention to. Yesterday in the evening she developed similar heaviness and about 10 minutes later a headache. Pain was all around the head with nausea and moderate in intensity. Heaviness in arm slowly worsened to the point that she had difficulty using the arm but there was no obvious weakness meaning that she was still able to use it. She denied any tingling or numbness. She denied any such feeling in her face or trunk or leg. When I saw her this morning she was still having some of that feeling in her left arm. Headache was still there but mild. There was no recent trauma or any obvious trigger or accident. Review of Systems 2 Review of Systems: No recent cold or flu-like illness PMFSH Past Medical History Medical History Depression Anxiety Factor 5 Leiden mutation, heterozygous Asthma GERD (gastroesophageal reflux disease) IBS (irritable bowel syndrome) Bowel obstruction Endometriosis Family History Family History Maternal Uncle Gallbladder cancer Mother Gallbladder disease Maternal Grandmother Gallbladder disease Surgical History Surgical History Hx of colonoscopy History of esophagogastroduodenoscopy (EGD) Hx of small bowel obstruction Hx of exploratory laparotomy Social History Social History Household Members: Family Housing: House Do you presently have visiting nurse or other home services: No Alcohol intake: current Alcohol intake frequency: holidays/special occasions only Patient Tobacco Use Status: Never used Tobacco Smoked in Last 30 Days: No Use of substances other than those prescribed or required for medical reasons: No Have you been hit, kicked, punched, or otherwise hurt by someone within the past year? If so, by whom?: No Do you feel safe in your current relationship?: Yes Is there a partner from a previous relationship who is making you feel unsafe now?: No Are you made to feel afraid or neglected: No Advance Directives: No Advance Directives Information Provided: Yes Do you have a plan to hurt others: No Plan Recently lost weight without trying: No How much weight loss: Not applicable Eating poorly because of decreased appetite: No Nutrition screen score: 0 Nutrition Risks: No Nutritional Risk Patient : No : No Poor oral hygiene: No service: No Meds Allergies Allergy/AdvReac Type Severity Reaction Status Date / Time prochlorperazine Allergy Unknown Verified 08/05/23 23:59 [From Compazine] codeine AdvReac Vomiting Verified 08/05/23 23:59 Active Medications: Current Medications Acetaminophen (Acetaminophen 325 Mg Tablet) 650 mg PO Q6H PRN PRN Reason: Pain, Mild (Pain Scale 1-3) Last Admin: 08/06/23 09:56 Dose: 650 mg Clonidine HCl (Clonidine Hcl 0.1 Mg Tablet) 0.1 mg PO Q8H PRN; Protocol PRN Reason: anxiety Duloxetine HCl (Duloxetine Hcl 20 Mg Capsule.) 20 mg PO BEDTIME [facility] Enoxaparin Sodium (Enoxaparin Sodium 40 Mg/0.4 Ml Syringe) 40 mg SUBCUT Q24H [facility] Last Admin: 08/06/23 09:57 Dose: 40 mg Melatonin (Melatonin 3 Mg Tablet) 6 mg PO BEDTIME PRN PRN Reason: Insomnia Omeprazole (Omeprazole 40 Mg Capsule.) 40 mg PO BEDTIME [facility] Ondansetron HCl (Ondansetron Hcl 4 Mg/2 Ml Vial) 4 mg IVPUSH Q8H PRN PRN Reason: Nausea and Vomiting Sodium Chloride (0.9 % Sodium Chloride Flush 3 Ml Syringe) 3 ml IVFLUSH QSHIFT [facility] Last Admin: 08/06/23 07:25 Dose: 3 ml Home Medications ?Medication ?Instructions ?Recorded ?Confirmed ?Last Taken ?Type budesonide-formoterol HFA 80 2 puff inhalation Q12H 04/24/23 08/06/23 08/05/23 History mcg-4.5 mcg/actuation aerosol inhaler (Symbicort) dexlansoprazole 60 mg 60 mg PO BEDTIME 04/24/23 08/06/23 08/05/23 History capsule,biphase delayed release medroxyprogesterone 150 mg/mL 150 mg IM [id number] 04/24/23 08/06/23 3 Months Ago History intramuscular suspension ~05/06/23 prucalopride 2 mg tablet 2 mg PO BEDTIME 04/24/23 08/06/23 08/05/23 History (Motegrity) clonidine HCl 0.1 mg tablet 0.1 mg PO Q8H PRN anxiety 08/06/23 08/06/23 Unknown History duloxetine 20 mg capsule,delayed 20 mg PO BEDTIME 08/06/23 08/06/23 08/05/23 History release Physical Exam 2 Vital Signs: Vital Signs: Last Vital Signs Temp 98.5 F 08/06/23 07:58 Pulse 79 08/06/23 07:58 Resp 18 08/06/23 07:58 BP 131/78 08/06/23 07:58 Pulse Ox 99 08/06/23 07:58 O2 Del Method Room Air 08/06/23 07:58 BMI result Body Mass Index 25.4 Neuro: Other: She is alert and awake with normal spontaneity of speech fluency comprehension and affect. Face is symmetrical. Visual jay are full no pronator drift. Deep tendon reflexes are trace to absent with flexor plantars. Pwaknt-sm-guwy and mwez-qd-ccmr testing is normal. Speech is normal. Pupils are about 3-4 mm round reactive to light. There symmetrical. Results Labs 08/06/23 00:35 08/06/23 00:33 Labs: Short CBC 08/06/23 Range/Units 00:35 WBC 7.3 (4.8-10.8) X10*3/uL Hgb 12.7 (12.0-16.0) g/dl Hct 37.1 (37.0-47.0) % Plt Count 284 (160-400) X10*3/uL BMP 08/06/23 00:33 Sodium 142 Potassium 3.9 Chloride 110 H Carbon Dioxide 22 BUN 14 Creatinine 0.85 Calcium 9.7 Cardiac Enzymes 08/06/23 Range/Units 00:33 Total Creatine Kinase 63 (26-140) U/L Liver Function 08/06/23 Range/Units 00:33 Total Bilirubin 0.5 (0.0-1.0) mg/dL Direct Bilirubin 0.2 (0.0-0.5) mg/dL AST 13 (5-31) U/L ALT 10 (0-31) U/L Alkaline Phosphatase 92 (39-117) U/L Albumin 4.4 (3.5-5.0) g/dL Head CT and CTA of brain did not reveal any significant abnormality. Assessment and Plan (1) Headache: Qualifiers: Headache chronicity pattern: unspecified pattern Headache type: u nspecified Intractability: not intractable Qualified Code(s): R51.9 - Headache, unspecified Status: Acute 22 years old woman with new symptoms of left arm heaviness and headache. Exam is nonfocal. This type of pattern usually happens with complex migraine but demyelinating disease is also possibility. She complain of being tired and fatigued during last few months, which might be explain based upon thyroid disease and she was noted to have goiter on imaging. I recommend doing an MRI of brain without contrast to screen for demyelinating disease. Otherwise she was educated about migraine. At this time this attack was almost over and no significant intervention was needed. Procedures Date of Service Date of Service: 08/06/23
[2023-08-06] MEDS: LORazepam 2 MG/ML VIAL 0.5 MG IVPUSH (11:19)
[2023-08-06 11:28] VITALS: BP 108/67; PULSE 81; RESP 18; TEMP 36.8; O2SAT 100
--- NOTE | 2023-08-06 11:51 | PM.EVENT ---
Event Note Date of Service: 08/06/23 Event Note: Seen and examined this morning Follow-up for left-sided arm heaviness Seen by Neurology, recommend brain MRI to screen for demyelinating disease, pending at this time. Complex migraine also possibility Multinodular goiter TSH within normal limits, thyroid ultrasound pending. Will need outpatient follow-up Time Spent With Patient Time: Total time managing care of this patient today ____ minutes.
[2023-08-06] MEDS: Butalb/Acetamin/Caff 50/325/40 TABLET 1 TAB PO (13:05)
--- NOTE | 2023-08-06 15:05 | PM.DS ---
DS: Providers Provider Date of Service: 08/06/23 Date of admission: 08/06/23 05:52 Date of discharge: 08/06/23 Primary care physician: Juanita Adhikari MD Consults: 08/06/23 05:51 Consult to Neurology Routine Consulting Provider: [facility] Reason for consultation: left arm numbness/heaviness Attending physician on discharge: Marbin Sanders Discharging clinician: Eleni Sen DS: Diagnosis Discharge Diagnosis (1) Headache: Status: Acute DS: Summary Hospital Course Hospital Course: From H&P on the day of admission This is a 22-year-old female with pertinent history of factor 5 Leiden deficiency, IBS, mood disorder, gastroesophageal reflux disease, asthma, endometriosis not on home oxygen who presents to the emergency department for evaluation of left arm numbness and weakness. Patient states her symptoms started suddenly at 21:45. She 1st had numbness/heaviness and weakness of her left upper extremity. This was subsequently followed by generalized headache. No history of migraines. No history of CVA. Patient's symptoms were constant and persistent and hence she presented to the ER. No fever, chills, chest discomfort, palpitations, shortness of breath, abdominal pain, changes in urinary or bowel habits. In the emergency department, Neurology was consulted who requested admission and will evaluate the patient in a.m. Left arm heaviness. Brain CT, CTA of the head and neck were unremarkable. Associated with headache. Seen by Neurology, recommended MRI to rule out demyelinating disease. MRI negative. Symptoms likely related to migraine equivalent. Treated with fioricet with improvement in symptoms. Multi nodular goiter TSH within normal limits. Thyroid ultrasound obtained, formal report pending at the time of discharge. Recommend outpatient follow-up with PCP Time Attestation Discharge Coordination Time (in mins): 30 Quality: Safe Use of Opioids Does Pt have an Active Cancer Diagnosis on the Problem List?: No Quality: Stroke Does the patient have a stroke diagnosis?: No Physical Exam Vital Signs: Vital Signs: Last Vital Signs Temp 98.3 F 08/06/23 11:28 Pulse 81 08/06/23 11:28 Resp 18 08/06/23 11:28 BP 108/67 08/06/23 11:28 Pulse Ox 100 08/06/23 11:28 O2 Del Method Room Air 08/06/23 11:28 BMI result Body Mass Index 25.4 Const: General: cooperative, comfortable, no acute distress, alert and awake Nutritional Appearance: average body habitus Orientation/consciousness: patient oriented x3 Resp: Effort & Inspection: normal respiratory effort, no respiratory distress and no use of accessory muscles Cardio: Rate: regular rate Neuro: Other: face symmetrical, tongue midline General: patient oriented x3 and moves all extremities Extrem: General: Yes no pedal edema DS: Data Data Completed and Pending Labs on day of discharge: Laboratory Results - last 24 hr 08/06/23 08/06/23 08/06/23 00:33 00:35 00:37 WBC 7.3 RBC 4.36 Hgb 12.7 Hct 37.1 MCV 85.1 MCH 29.1 MCHC 34.2 RDW 12.9 Plt Count 284 MPV 10.0 Immature Gran % (Auto) 0.3 Neut % (Auto) 56.0 Lymph % (Auto) 34.3 [place] % (Auto) 7.5 Eos % (Auto) 1.5 Baso % (Auto) 0.4 Lymph # (Auto) 2.5 [place] # (Auto) 0.6 Eos # (Auto) 0.1 Baso # (Auto) 0.0 Abs Immat Gran (auto) 0.02 Absolute Neuts (auto) 4.1 Absolute Nucleated RBC 0.000 Nucleated RBC % (auto) 0.0 PT Whole Blood PT 14.8 H INR Whole Blood INR 1.2 H APTT Sodium 142 Potassium 3.9 Chloride 110 H Carbon Dioxide 22 Anion Gap 14 BUN 14 Creatinine 0.85 Estim Creat Clear Calc 100.9 Estimated GFR > 60 POC Glucose Random Glucose 111 Calcium 9.7 Magnesium 2.0 Total Bilirubin 0.5 Direct Bilirubin 0.2 AST 13 ALT 10 Alkaline Phosphatase 92 Total Creatine Kinase 63 Troponin I High Sens < 2.7 Total Protein 7.3 Albumin 4.4 TSH 2.71 Beta HCG, Quant < 2 08/06/23 08/06/23 01:02 01:05 WBC RBC Hgb Hct MCV MCH MCHC RDW Plt Count MPV Immature Gran % (Auto) Neut % (Auto) Lymph % (Auto) [place] % (Auto) Eos % (Auto) Baso % (Auto) Lymph # (Auto) [place] # (Auto) Eos # (Auto) Baso # (Auto) Abs Immat Gran (auto) Absolute Neuts (auto) Absolute Nucleated RBC Nucleated RBC % (auto) PT 12.3 Whole Blood PT INR 1.0 Whole Blood INR APTT 29.8 Sodium Potassium Chloride Carbon Dioxide Anion Gap BUN Creatinine Estim Creat Clear Calc Estimated GFR POC Glucose 108 Random Glucose Calcium Magnesium Total Bilirubin Direct Bilirubin AST ALT Alkaline Phosphatase Total Creatine Kinase Troponin I High Sens Total Protein Albumin TSH Beta HCG, Quant Discharge Plan Discharge Anticipated Discharge Date/Time: 08/06/23 12:50 Patient Disposition: Home, Self-Care Discharge Diagnosis: Probable migraine equivalent Referrals: Juanita Adhikari MD [Primary Care Provider] - 1 Week Discharge Medications: Continued ondansetron 4 mg tablet,disintegrating 4 mg PO Q6H PRN (Reason: nausea and vomiting) Qty: 20 0RF clonidine HCl 0.1 mg tablet 0.1 mg PO Q8H PRN (Reason: anxiety) duloxetine 20 mg capsule,delayed release(DR/EC) 20 mg PO BEDTIME Motegrity 2 mg tablet 2 mg PO BEDTIME dexlansoprazole 60 mg capsule,biphase delayed releas 60 mg PO BEDTIME medroxyprogesterone 150 mg/mL suspension 150 mg IM [id number] Rx Instructions: due 08-13-23 budesonide-formoterol [Symbicort] 80-4.5 mcg/actuation HFA aerosol inhaler 2 puff inhalation Q12H Discharge Orders: Discharge Order (Routine); Ordered 08/06/23 Ordered By: Eleni Sen Activity on Discharge: As tolerated Stand Alone Forms: Patient Portal Discharge page, Work/School Release Print Language: Luxembourgish Activity Restrictions/Additional Instructions: The CT angiogram of your head and neck revealed an incidental voltage nodule goiter. The radiologist recommended that you get an outpatient ultrasound to further evaluate this finding. The radiology reading is below in you can share this with your PCP who can then order the ultrasound for you. CT angio head neck stroke IMPRESSION: 1. No acute arterial occlusion or hemodynamically significant stenosis within the head or neck. 2. Enlarged multinodular thyroid goiter with dominant left thyroid nodule measuring 2.7 cm craniocaudal dimension; further evaluation with thyroid ultrasound advised. Largely nonpathologic size criteria bilateral level 6 lymph nodes, one on the left which is borderline measuring 1.0 cm. Care Plan Goals: See below Health Concerns: Left arm heaviness, headache; migraine equivalent Multinodular goiter Plan of Treatment: Probable migraine equivalent. MRI negative for stroke or demyelinating disease Thyroid ultrasound obtained, report pending at the time of discharge. Recommend outpatient follow-up with PCP symptomatic treatment for headache Assessment: See discharge summary
[2023-08-06 15:32] VITALS: BP 108/57; PULSE 91; RESP 16; TEMP 36.8; O2SAT 100
--- NOTE | 2023-08-06 16:13 | MHC.CM.PN ---
Female 22 DX L UE Numbness/weakness She lives with her parents. She is independent with all functional mobility. 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 She is discharged to home today self care. She has arranged for her mother to provide transportation home.
[2023-08-06] MEDS: Metoclopramide HCl 10 MG/2 ML VIAL 5 MG IVPUSH (16:27)
== END 2023-08-06 17:26 | disposition home or self-care (01) | DRG 103 ==
LOC: HO.ED 08-06 01:59 → HO.EDOVER 08-06 06:04 → HO.IMC 08-06 07:20
PROVIDERS: Emergency Medicine Emergency Medical Services; Admitting Provider Student in an Organized Health Care Education/Training Program; Emergency Provider Emergency Medicine Emergency Medical Services; PCP Pediatrics; Visit Provider Physician Assistant Medical
DX: G43.109 Migraine with aura, not intractable, without status migrainosus (principal); D68.51 Activated protein C resistance; E04.2 Nontoxic multinodular goiter; K58.9 Irritable bowel syndrome, unspecified; J45.909 Unspecified asthma, uncomplicated; Z79.899 Other long term (current) drug therapy
CPT/HCPCS: 36415; 70450; 70496; 70498; 70551; 76536; 80053; 82248; 82550; 82947; 83735; 84443; 84484; 84702; 85025; 85610; 85730; 93005; 99222; 99285; J1200; J1650; J1885; J2060; J2270; J2405; J2765; Q9967

== ENCOUNTER → 2023-08-06 00:55 | Outpatient (BNV) | payer OTHER, SELFPAY | PROVIDERS: Emergency Provider Emergency Medicine Emergency Medical Services; PCP Pediatrics; Visit Provider Student in an Organized Health Care Education/Training Program | DX: R51.9 Headache, unspecified (principal) | CPT/HCPCS: 99222; 99235; 99499 ==

== ENCOUNTER → 2023-08-06 01:00 | Outpatient (BNV) | payer OTHER, SELFPAY | PROVIDERS: Admitting Provider Student in an Organized Health Care Education/Training Program; Emergency Provider Emergency Medicine Emergency Medical Services; PCP Pediatrics; Visit Provider Internal Medicine Cardiovascular Disease | DX: R51.9 Headache, unspecified (principal); R20.2 Paresthesia of skin; R11.0 Nausea | CPT/HCPCS: 93010 ==

== ENCOUNTER → 2023-08-06 05:52 | Outpatient (BNV) | payer OTHER, SELFPAY | PROVIDERS: Admitting Provider Student in an Organized Health Care Education/Training Program; Emergency Provider Emergency Medicine Emergency Medical Services; PCP Pediatrics; Visit Provider Psychiatry & Neurology Neurology | DX: R51.9 Headache, unspecified (principal) | CPT/HCPCS: 99222 ==

== ENCOUNTER 2023-08-15 14:07 | Emergency (ER) | payer OTHER, SELFPAY ==
[2023-08-15 14:29] VITALS: BP 115/83; PULSE 79; RESP 18; TEMP 36.7; O2SAT 97; BMI 27.8
[2023-08-15 15:10] LABS: MANUAL DIFF FLAG NO
[2023-08-15 15:11] LABS: Basophils Percent Auto 0.3 % (0-2); Eosinophils Absolute Auto 0.1 X10*3/uL (0.0-0.4); Eosinophils Percent Auto 0.6 % (0-4); Hematocrit 35.5 % (37.0-47.0); Hemoglobin 12.3 g/dl (12.0-16.0); Imm Gran Abs Auto 0.04 X10*3/uL (0.00-0.03); Imm Gran Pct Auto 0.4 % (0.0-0.4); Lymphocytes Absolute Auto 2.3 X10*3/uL (1.2-4.9); Lymphocytes Percent Auto 21.9 % (20-40); Mean Corpuscular HGB Conc 34.6 g/dl (31.0-35.0); Mean Corpuscular Hemoglobin 29.3 pg (27.0-33.0); Mean Corpuscular Volume 84.5 fL (80.0-98.0); Mean Platelet Volume 9.9 fL (9.4-12.3); Monocytes Absolute Auto 0.6 X10*3/uL (0.1-1.2); Neutrophils Absolute Auto 7.5 x10*3/uL (2.0-8.3); Neutrophils Percent Auto 70.8 % (45-73); Platelet Count 268 X10*3/uL (160-400); White Blood Count 10.6 X10*3/uL (4.8-10.8)
[2023-08-15 15:35] LABS: Alanine Aminotransferase 12 U/L (0-31); Albumin Level 4.5 g/dL (3.5-5.0); Alkaline Phosphatase 79 U/L (39-117); Anion Gap 12 (12-20); Aspartate Amino Transferase 14 U/L (5-31); Bilirubin Direct 0.2 mg/dL (0.0-0.5); Bilirubin Total 0.5 mg/dL (0.0-1.0); Blood Urea Nitrogen 16 mg/dL (9-16); Calcium 9.8 mg/dL (8.4-10.2); Carbon Dioxide 23 mmol/L (22-29); Chloride 110 mmol/L (96-108); Creatinine Clr Calc Pharmacy 126.7; Estimated Glomerular Filt Rate > 60; Ethanol < 10 mg/dL; Glucose Random 92 mg/dL (60-115); Potassium 4.2 mmol/L (3.3-5.1); Sodium 141 mmol/L (135-145); Total Protein 7.4 g/dL (6.5-8.0)
[2023-08-15 16:00] LABS: Appearance Urine Clear; Color Urine Yellow; Glucose Urine UA Negative (Negative); Leukocyte Esterase Urine Negative (Negative); Nitrite Urine Negative (Negative); PH 5.5 (5.0-9.0); Specific Gravity - Urine 1.015 (1.005-1.025); Urine Blood Negative (Negative); Urine Ketones Negative (Negative); Urine Protein Negative (Neg-Trace)
[2023-08-15 16:04] LABS: UPreg QC Valid YES; Urine Pregnancy NEGATIVE (NEGATIVE)
[2023-08-15 16:09] LABS: Amphetamine Screen Urine Not Detected (Not Detect); Barbiturates, Urine Not Detected (Not Detect); Benzodiazepines Screen Urine Not Detected (Not Detect); Buprenorphine Scr Not Detected (Not Detect); Cannabinoid Screen Urine Not Detected (Not Detect); Cocaine Screen Urine Not Detected (Not Detect); Fentanyl, urine Not Detected (Not Detect); Methadone Screen, Urine Not Detected (Not Detect); Opiate Screen Urine Not Detected (Not Detect); Oxycodone Screen Urine Not Detected (Not Detect); Phencyclidine Screen Urine Not Detected (Not Detect)
--- NOTE | 2023-08-15 17:49 | PC.NURSE ---
Multiple attempts by multiple RN`s to place IV unsuccessful. Provider notified and will attempt ultrasound guided IV placement
[2023-08-15] MEDS: Ketorolac Tromethamine 30 MG/ML VIAL IVPUSH (17:55)
[2023-08-15] MEDS: Metoclopramide HCl 10 MG/2 ML VIAL IVPUSH (17:55)
[2023-08-15] MEDS: Meclizine HCl 25 MG TABLET 50 MG PO (17:55)
[2023-08-15] MEDS: diphenhydrAMINE HCL 50 MG/ML VIAL 25 MG IVPUSH (17:55)
[2023-08-15] MEDS: 0.9 % Sodium Chloride 1,000 ML 999 ML IV (17:56)
[2023-08-15 18:44] VITALS: BP 111/73; PULSE 90; RESP 15; TEMP 36.7; O2SAT 100
--- NOTE | 2023-08-15 19:33 | ED_ITS ---
HPI - General Adult General Chief complaint: Dizziness Stated complaint: dizzness heavy l arm Time Seen by Provider: 08/15/23 16:37 Source: patient, RN notes reviewed and old records reviewed Mode of arrival: ambulatory Limitations: no limitations History of Present Illness ED Provider: Sultana EL narrative: 22-year-old female presents for evaluation of headache and left arm heaviness. Patient was admitted to this facility on 08/06/2023 for a complex migraine. She had a headache with left arm weakness at the time. She end up having a CT scan of the brain, CT angiography of the head and neck and subsequently an MRI of the brain all of which did not show any acute findings. The patient was seen by Neurology, Dr. Flores and was diagnosed with complex migraines. Patient had a similar episode 4 days ago on Thursday and then again today while she was at work with headache, left arm weakness. She did complain of dizziness today which was new Denies any head trauma, facial droop, difficulty with speech Related Data Home Medications ?Medication ?Instructions ?Recorded ?Confirmed budesonide-formoterol HFA 80 2 puff inhalation Q12H 04/24/23 08/06/23 mcg-4.5 mcg/actuation aerosol inhaler (Symbicort) dexlansoprazole 60 mg 60 mg PO BEDTIME 04/24/23 08/06/23 capsule,biphase delayed release medroxyprogesterone 150 mg/mL 150 mg IM [id number] 04/24/23 08/06/23 intramuscular suspension prucalopride 2 mg tablet 2 mg PO BEDTIME 04/24/23 08/06/23 (Motegrity) clonidine HCl 0.1 mg tablet 0.1 mg PO Q8H PRN anxiety 08/06/23 08/06/23 duloxetine 20 mg capsule,delayed 20 mg PO BEDTIME 08/06/23 08/06/23 release Previous Rx's ?Medication ?Instructions ?Recorded ondansetron 4 mg disintegrating 4 mg PO Q6H PRN nausea and 03/12/23 tablet vomiting #20 tabs jgyklrqsai-sblwuhtnlwvzt-pjeutsqz 1 cap PO Q4-6H PRN pain #15 caps 08/15/23 50 mg-300 mg-40 mg capsule (Fioricet) meclizine 25 mg tablet 25 mg PO TID PRN dizziness #20 tabs 08/15/23 Allergies Allergy/AdvReac Type Severity Reaction Status Date / Time prochlorperazine Allergy Unknown Verified 08/15/23 14:31 [From Compazine] codeine AdvReac Vomiting Verified 08/15/23 14:31 Review of Systems 2 Constitutional: Constitutional: Denies body ache(s), Denies chills, Denies frequent falls and Reports headache(s) Eyes: Eyes: Denies blurry vision ENT: Reports vertigo, Reports dizziness, Reports headache(s) and Denies sore throat Cardiovascular: Cardiovascular: Denies chest pain and Denies dyspnea Respiratory: Respiratory: Denies cough and Denies dyspnea Gastrointestinal: Gastrointestinal: Denies abdominal pain, Denies nausea and Denies vomiting Musculoskeletal: Musculoskeletal: Denies back pain Integumentary/Breasts: Skin/Breast: Denies rash Neurologic: Reports vertigo, Reports dizziness, Denies frequent falls and Reports headache(s) Psychiatric: Psychiatric: Denies anxiety PMFSH Past Medical History Medical History Depression Anxiety Factor 5 Leiden mutation, heterozygous Asthma GERD (gastroesophageal reflux disease) IBS (irritable bowel syndrome) Bowel obstruction Endometriosis Surgical History Hx of colonoscopy History of esophagogastroduodenoscopy (EGD) Hx of small bowel obstruction Hx of exploratory laparotomy Family History Family History Maternal Uncle Gallbladder cancer Mother Gallbladder disease Maternal Grandmother Gallbladder disease Social History Social History Household Members: Family Housing: House Do you presently have visiting nurse or other home services: No Alcohol intake: current Alcohol intake frequency: holidays/special occasions only Patient Tobacco Use Status: Never used Tobacco Smoked in Last 30 Days: No Use of substances other than those prescribed or required for medical reasons: No Advance Directives: No Advance Directives Information Provided: Yes service: No Physical Exam ED Vital Signs: Vital Signs - 24 hr 08/15/23 14:29 08/15/23 18:44 Temperature 98.1 F 98.1 F Pulse Rate 79 90 Respiratory Rate 18 15 Blood Pressure 115/83 111/73 Pulse Oximetry 97 100 Oxygen Delivery Method Room Air Room Air BMI result Body Mass Index 27.8 Const General: healthy appearing, comfortable, no acute distress, alert and awake Nutritional Appearance: well nourished Orientation/consciousness: patient oriented x3 HENMT Head: Yes normocephalic and Yes atraumatic Eyes Eyelids: Yes eyelids normal Conjunctivae: conjunctivae normal Sclerae: sclerae normal Corneas: corneas normal Pupils: Equal, round and reactive pupils present EOM: EOMs intact bilaterally Neck Neck: Yes full ROM Resp Effort & Inspection: normal respiratory effort, able to speak in complete sentences and not labored GI Inspection: No distended Palpation (GI): Soft to palpation, not firm, nontender, no guarding and not rigid Skin General skin exam: elasticity normal Neuro General: patient oriented x3 Cranial nerves: Yes Equal, round and reactive pupils present and Yes Bilaterally intact EOM present Cognition (Neuro): normal cognition Motor exam (neuro): Pronator motor function not present, no tremor noted, no asterixis, Motor fasciculations not present, Normal motor muscle tone present throughout and Abnormal motor strength present (Patient had maybe slightly weakness to left upper extremity) Coordination: totzby-lc-pknb test normal, povz-eg-tscc test normal, sways with eyes open and Romberg test negative Extrem Other: Moving all extremities well without any obvious deformities Course Reevaluation(s) Reevaluation #1: Patient reports feeling better now after Fioricet and Dilaudid. Plan to discharge the patient Fioricet and meclizine and she will follow-up with neurology Time: 21:59 Medications Administered Discontinued Medications Generic Name Dose Route Start Last Admin Trade Name Mikeyq PRN Reason Stop Dose Admin Acetaminophen/Butalbital/Caffeine 1 tab 08/15/23 19:32 08/15/23 20:00 Butalb/Acetamin/Caff 50/325/40 Tablet PO 08/15/23 19:33 1 tab ONCE ONE Administration Diphenhydramine HCl 25 mg 08/15/23 16:48 08/15/23 17:55 Diphenhydramine Hcl 50 Mg/Ml Vial IVPUSH 08/15/23 16:49 25 mg ONCE ONE Administration Hydromorphone HCl 0.5 mg 08/15/23 19:32 08/15/23 20:01 Hydromorphone Hcl 0.5 Mg/0.5 Ml Syringe IVPUSH 08/15/23 19:33 0.5 mg ONCE ONE Administration Protocol Sodium Chloride 1,000 mls @ 999 mls/hr 08/15/23 17:00 08/15/23 19:09 Ns IV 08/15/23 18:00 Infused .Q1H1M RICCO Infusion Ketorolac Tromethamine 30 mg 08/15/23 16:48 08/15/23 17:55 Ketorolac Tromethamine 30 Mg/Ml Vial IVPUSH 08/15/23 16:49 30 mg ONCE ONE Administration Meclizine HCl 50 mg 08/15/23 16:48 08/15/23 17:55 Meclizine Hcl 25 Mg Tablet PO 08/15/23 16:49 50 mg ONCE ONE Administration Metoclopramide HCl 10 mg 08/15/23 16:48 08/15/23 17:55 Metoclopramide Hcl 10 Mg/2 Ml Vial IVPUSH 08/15/23 16:49 10 mg ONCE ONE Administration Medical Decision Making Medical Decision Making [facility] Narrative: 22-year-old female presents for evaluation of headache, dizziness and left arm weakness, similar to her presentation when she was admitted here 9 days ago. I reviewed her workup that was quite extensive with neurology follow-up. I do not suspect a CVA today, the patient's NIH stroke score is 0. Symptoms likely related to complex migraine again. We will treat with Toradol, Reglan, Benadryl, fluids. Differential Diagnosis Differential Diagnoses: The differential diagnosis associated with the presentation includes Complex migraine Acute headache CVA TIA Lab Data [facility] Lab Attestation statement: I reviewed the patient's lab results. No leukocytosis. The patient has a mild anemia with a normal hemoglobin and hematocrit 35.5. Platelet count within normal limits. Patient's electrolytes without worrisome abnormality requiring intervention. 08/15/23 15:06 08/15/23 15:06 Labs: Lab Results 08/15/23 08/15/23 Range/Units 15:06 15:50 WBC 10.6 (4.8-10.8) X10*3/uL RBC 4.20 (4.20-5.50) X10*6/uL Hgb 12.3 (12.0-16.0) g/dl Hct 35.5 L (37.0-47.0) % MCV 84.5 (80.0-98.0) fL MCH 29.3 (27.0-33.0) pg MCHC 34.6 (31.0-35.0) g/dl RDW 13.0 (11.0-16.0) % Plt Count 268 (160-400) X10*3/uL MPV 9.9 (9.4-12.3) fL Immature Gran % (Auto) 0.4 (0.0-0.4) % Neut % (Auto) 70.8 (45-73) % Lymph % (Auto) 21.9 (20-40) % [place] % (Auto) 6.0 (2-11) % Eos % (Auto) 0.6 (0-4) % Baso % (Auto) 0.3 (0-2) % Lymph # (Auto) 2.3 (1.2-4.9) X10*3/uL [place] # (Auto) 0.6 (0.1-1.2) X10*3/uL Eos # (Auto) 0.1 (0.0-0.4) X10*3/uL Baso # (Auto) 0.0 (0.0-0.2) X10*3/uL Abs Immat Gran (auto) 0.04 H (0.00-0.03) X10*3/uL Absolute Neuts (auto) 7.5 (2.0-8.3) x10*3/uL Absolute Nucleated RBC 0.000 (0.0-0.012) X10*3/uL Nucleated RBC % (auto) 0.0 (0.0-0.2) /100WBC Sodium 141 (135-145) mmol/L Potassium 4.2 (3.3-5.1) mmol/L Chloride 110 H (96-108) mmol/L Carbon Dioxide 23 (22-29) mmol/L Anion Gap 12 (12-20) BUN 16 (9-16) mg/dL Creatinine 0.76 (0.5-1.4) mg/dL Estim Creat Clear Calc 126.7 Estimated GFR > 60 Random Glucose 92 (60-115) mg/dL Calcium 9.8 (8.4-10.2) mg/dL Magnesium 2.0 (1.6-2.6) mg/dL Total Bilirubin 0.5 (0.0-1.0) mg/dL Direct Bilirubin 0.2 (0.0-0.5) mg/dL AST 14 (5-31) U/L ALT 12 (0-31) U/L Alkaline Phosphatase 79 (39-117) U/L Total Protein 7.4 (6.5-8.0) g/dL Albumin 4.5 (3.5-5.0) g/dL Urine Color Yellow Urine Appearance Clear Urine pH 5.5 (5.0-9.0) Ur Specific Kil[place] 1.015 (1.005-1.025) Urine Protein Negative (Neg-Trace) mg/dL Urine Glucose (UA) Negative (Negative) mg/dL Urine Ketones Negative (Negative) mg/dL Urine Blood Negative (Negative) Urine Nitrite Negative (Negative) Ur Leukocyte Esterase Negative (Negative) Urine Test NEGATIVE (NEGATIVE) Urine Opiates Screen Not Detected (Not Detect) Ur Buprenorphine Scrn Not Detected (Not Detect) ng/mL Ur Oxycodone Screen Not Detected (Not Detect) ng/mL Urine Methadone Screen Not Detected (Not Detect) ng/mL Urine Fentanyl Screen Not Detected (Not Detect) Ur Barbiturates Screen Not Detected (Not Detect) Ur Phencyclidine Scrn Not Detected (Not Detect) Ur Amphetamines Screen Not Detected (Not Detect) U Benzodiazepines Scrn Not Detected (Not Detect) Urine Cocaine Screen Not Detected (Not Detect) U Marijuana (THC) Screen Not Detected (Not Detect) Ethyl Alcohol < 10 mg/dL Discharge Plan Discharge Clinical Impression: Acute headache, Vertigo Patient Disposition: Home, Self-Care Instructions: Acute Headache (ED), Dizziness (ED) Additional Instructions: Your blood work today was reassuring. Take Fioricet as needed for headaches. Take meclizine as needed for dizziness Hydrate well Follow-up with your primary doctor Prescriptions: New sctdodpkiw-tjcuxzibrgodd-ojox [Fioricet] 50-300-40 mg capsule 1 cap PO Q4-6H PRN (Reason: pain) Qty: 15 0RF meclizine 25 mg tablet 25 mg PO TID PRN (Reason: dizziness) Qty: 20 0RF No Action ondansetron 4 mg tablet,disintegrating 4 mg PO Q6H PRN (Reason: nausea and vomiting) Qty: 20 0RF clonidine HCl 0.1 mg tablet 0.1 mg PO Q8H PRN (Reason: anxiety) duloxetine 20 mg capsule,delayed release(DR/EC) 20 mg PO BEDTIME Motegrity 2 mg tablet 2 mg PO BEDTIME dexlansoprazole 60 mg capsule,biphase delayed releas 60 mg PO BEDTIME medroxyprogesterone 150 mg/mL suspension 150 mg IM [id number] Rx Instructions: due 08-13-23 budesonide-formoterol [Symbicort] 80-4.5 mcg/actuation HFA aerosol inhaler 2 puff inhalation Q12H Stand Alone Forms: Work/School Release Print Language: Niuean
[2023-08-15] MEDS: Butalb/Acetamin/Caff 50/325/40 TABLET 1 TAB PO (20:00)
[2023-08-15] MEDS: HYDROmorphone HCl 0.5 MG/0.5 ML SYRINGE IVPUSH (20:01)
[2023-08-15 22:58] VITALS: BP 92/53; PULSE 79; RESP 16; TEMP 36.9; O2SAT 99
== END 2023-08-15 22:45 | disposition home or self-care (01) ==
PROVIDERS: Physician Assistant; Emergency Provider Emergency Medicine; PCP Pediatrics
DX: R51.9 Headache, unspecified (principal); R42 Dizziness and giddiness; R53.1 Weakness; J45.909 Unspecified asthma, uncomplicated; K21.9 Gastro-esophageal reflux disease without esophagitis; Z79.899 Other long term (current) drug therapy
CPT/HCPCS: 36415; 80048; 80076; 80307; 81003; 81025; 83735; 85025; 96361; 96374; 96375; 99284; J1170; J1200; J1885; J2765

== ENCOUNTER 2024-03-02 14:20 | Emergency (ER) | payer OTHER, SELFPAY ==
--- NOTE | ~2024-03-02 | XR_ITS ---
CLINICAL HISTORY: shortness of breath, chest pain, recent covid 2 view chest x-ray Comparison: None Findings: No consolidation or effusion. Normal size heart. No acute fracture. IMPRESSION: 1. No acute findings. This document has been electronically signed by: Frederic Lynn MD on 03/02/2024 18:04:12
--- OUTSIDE RECORDS SUMMARY | 2024-03-02 14:23 | XMS_ITS ---
Author Organization [facility] Address [address] [address] Care Team Providers Care Optical Design Engineer Name Role Phone Onofre Juanita Primary Care Provider KIRSTEN Stover Unavailable [phone] REASON FOR VISIT Medical Records Encounters Encounter Location Date Provider Diagnosis [facility] [address] [address] 12/03/2022 KIRSTEN CONNOLLY Plan Of Treatment No Information Progress Notes * Laura BARBERDOB:2000 (22 yo F)Acc No.[id number]:12/03/2022 Patient:?Laura Barber :2000???Age:22 Y???Sex:Female Address:[address] [place] [id number] * true * Date:? Generated for David apple/Brigette/eTransmitting on:?03/02/2024 02:23 PM EST
--- OUTSIDE RECORDS SUMMARY | 2024-03-02 14:23 | XMS_ITS | Patient Health Record ---
Author Organization [facility] Address [address] [facility] [address] [place] [address] Care Team Providers Care Business Support Liaison Name Role Phone Juanita Adhikari Primary Care Provider KIRSTEN Stover Unavailable [phone] Allergies Allergen (clinical drug ingredient) Drug/Non Drug Allergy documented on EMR Reaction Allergy Type Onset Date Status Compazine Unknown Drug Allergy Active codeine Codeine vomiting Drug Allergy Active Reason For Referral No Information Medications Medication SIG (Take, Route, Fr equency, Duration) Notes Start Date End Date Status Lexapro 20 MG 1 tablet Orally Once a day Active Depo-Provera 150 MG/ML 1 mL Intramuscular Active Motegrity 1 MG 1 tablet Orally Once a day Active Dexilant 60 MG 1 capsule Orally Once a day Active Plan Of Treatment Pending Test Test Name Order Date Nail avulsion partial/complete 3 Nail avulsion each add nail plate 2022 Insurance Providers Payer Name Payer Address Payer Phone Subscriber Number Group Number Insured Name Patient Relationship to Insured Coverage Start Date Coverage End Date [employer] [address] [place] [address] [id number] Laura Banegas Self - patient is the insured Medical (General) History Medical History History ICD Code asthma IBS-C/Adhesive bowel disease endometriosis GERD anxiety depression + COVID 07/2021 and 03/2022 COVID vaccinated X 2 (Moderna) Surgical History Surgery Date(Month/Year) intussusception 2004 exploratory laparoscopic nghia clarita 2011 and 2019- adhesions/endometriosis bowel obstruction/ resection 2020 Hospitalization History Reason Date(Month/Year) bowel obstruction/resection 2020 intussusception 2004
--- OUTSIDE RECORDS SUMMARY | 2024-03-02 14:23 | XMS_ITS ---
Author Organization [facility] Address [address] [address] Care Team Providers Care Fish Fryer Name Role Phone OnofreJuanita Primary Care Provider KATIE Stover Unavailable [phone] Allergies Allergen (clinical drug ingredient) Drug/Non Drug Allergy documented on EMR Reaction Allergy Type Onset Date Status Compazine Unknown Drug Allergy Active codeine Codeine vomiting Drug Allergy Active REASON FOR VISIT ingrown toenails Medications Medication SIG (Take, Route, Fr equency, Duration) Notes Start Date End Date Status Motegrity 1 MG 1 tablet Orally Once a day Active Depo-Provera 150 MG/ML 1 mL Intramuscular Active Lexapro 20 MG 1 tablet Orally Once a day Active Dexilant 60 MG 1 capsule Orally Once a day Active Vital Signs Weight 158.7 lbs 12/05/2022 Height 5ft 8in in 12/05/2022 BMI 24.13 kg/m2 12/05/2022 Heart Rate 80 /min 12/05/2022 Temperature 97.0 degrees Fahrenheit 12/06/19 23 Respiratory Rate 12 /min 12/05/2022 Procedures Procedure Date Ordered Date Performed Result Body Sit e Nail avulsion partial/complete 12/05/2022 N/A Nail avulsion each add nail plate 12/05/2022 N/ A Encounters Encounter Location Date Provider Diagnosis [facility] [address] [address] 12/05/2022 KATIE CONNOLLY Ingrown toenail of both feet L60.0 ; Pain around toenail, right foot M79.674 and Pain around toenail, left foot M79.675 Assessments Encounter Date Diagnosis (ICD Code) Assessment Notes Treatment Notes Treatment Clinical Notes Section Notes 12/05/2022 Ingrown toenail of both feet (ICD-10 - L60.0) Patient was seen and examined, history reviewed. I spent approximately 30 minutes [id number] with the patient. Discussed treatment options for ingrown toenails in detail. This consisted of soaking in Epsom salts twice daily, oral antibiotics to treat infection, partial nail avulsion to remove affecting border, and permanent nail avulsion using phenol. A decision was made to perform a partial nail avulsion to the medial borders of the right and left hallux toenails. Advised the patient that the toenail takes around 9 months to regrow. The right and left great toes were bandaged and the patient was given written instructions on aftercare. Patient was educated on how to cut the toenail straight across and to massage down the nail fold daily to avoid ingrown toenails from reoccurring. Patient will follow up in 2 weeks or sooner if needed. 12/05/2022 Pain around toenail, right foot (ICD-10 - M79.674) 12/05/2022 Pain around toenail, left foot (ICD-10 - M79.675) Plan Of Treatment Treatment Notes Assessment Notes Ingrown toenail of both feet Patient was seen and examined, history reviewed. I spent approximately 30 minutes [id number] with the patient. Discussed treatment options for ingrown toenails in detail. This consisted of soaking in Epsom salts twice daily, oral antibiotics to treat infection, partial nail avulsion to remove affecting border, and permanent nail avulsion using phenol. A decision was made to perform a partial nail avulsion to the medial borders of the right and left hallux toenails. Advised the patient that the toenail takes around 9 months to regrow. The right and left great toes were bandaged and the patient was given written instructions on aftercare. Patient was educated on how to cut the toenail straight across and to massage down the nail fold daily to avoid ingrown toenails from reoccurring. Patient will follow up in 2 weeks or sooner if needed. Pending Test Test Name Order Date Nail avulsion partial/complete 3 Nail avulsion each add nail plate 2022 Next Appt Details Follow Up: 2 Weeks, Reason: Progress Notes * Brenda BARBER:2000 (22 yo F)Acc No.[id number]:12/05/2022 Progress Notes Patient:Laura Vera Provider:?Katie Lee DPM :2000???Age:22 Y???Sex:Female D ate:12/05/2022 Address:[address] [place], [place] [id number] Pcp:Juanita Adhikari Subjective: * Chief Complaints: * ???Ingrown toenails * HPI: ???Foot & Ankle:? Ms. Barber is a pleasant 22 year old female who presents for a consultation. She is here with her mother. She has been having pain to both great toenails for over 6 months now. She recently had an infection to the left great toenail that was treated with oral antibiotics by an urgent care. She states the infection has improved greatly. She now admits mostly to pain around the inner borders of the toenails. She finds that when she is working the toes bother her the most. She has never had procedures in the past to the toenails. She denies any past trauma to either toe. She has tried trimming the nails herself, but the pain does not improve. * ROS:?General/Constitutional:?Denies?Chills.?Denies?Fatigue.?Denies?Fever.?Denies?Headache.?Allergy/Immunology:?Denies?Hives.?Denies?Itching.?Denies?Rash.?Endocrine:?Denies?Excessive sweating.?Denies?Excessive thirst.?Denies?Frequent urination.?Respiratory:?Denies?Cough.?Denies?Shortness of breath,?denies.?Denies?Wheezing.?Cardiovascular:?Denies?Chest pain.?Denies?Claudication.?Denies?Cyanosis.?Gastrointestinal:?Denies?Abdominal pain.?Denies?Constipation.?Denies?Diarrhea.?Hematology:?Denies?Bleeding problems,?denies.?Denies?Easy bruising,?denies.?Denies?Swollen glands.?Musculoskeletal:?Denies?Arthritis/Arthralgia.?Denies?Back problems.?Denies?Leg cramps.?Denies?Limping gait.?Peripheral Vascular:?Denies?Blanching of skin.?Blood clots in legs?Denies.?Denies?Cold extremities.?Skin:?Denies?Masses.?Admits?Nail changes,?both great toenails ingrown.?Denies?Skin lesion(s).?Neurologic:?Denies?Paralysis.?Denies?Tingling/Numbness.?Denies?Tremor.?Psychiatric:?Denies?Auditory/visual hallucinations.?Denies?Delusions.?Denies?Suicidal thoughts.? * Medical History:? * Surgical History:?intussusce ption 2004exploratory laparoscopic surgery 2011 and 2019- adhesions/endometriosis bowel obstruction/ resection 2020 * Hospitalization/Major Diagno stic Procedure:?intussusception 2004bowel obstruction/resection 2020 * Family History:?Mother: hypo thyroidism.?Paternal Grand Father: arthritis.?Maternal Grand Father: hypertension.?Maternal Grand Mother: lymph node on groin.?Maternal uncle: gallbladder cancer.? 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 * Medications:?TakingDepo-Prov era 150 MG/ML Suspension 1 mL Intramuscular Lexapro 20 MG Tablet 1 tablet Orally Once a day Dexilant 60 MG Capsule Delayed Release 1 capsule Orally Once a day Motegrity 1 MG Tablet 1 tablet Orally Once a day Medication List reviewed and reconciled with the patientTaking Depo-Provera 150 MG/ML Suspension 1 mL Intramuscular Taking Lexapro 20 MG Tablet 1 tablet Orally Once a day Taking Dexilant 60 MG Capsule Delayed Release 1 capsule Orally Once a day Taking Motegrity 1 MG Tablet 1 tablet Orally Once a day Medication List reviewed and reconciled with the patient * Allergies:?Codeine: vomiting Arturno[Allergies Verified] Objective: * Vitals:?Wt:158.7lbs, Ht: 5ft 8in, BMI:24.13Index, HR:80/min, Temp:97.0F, RR:12/min, Ht-cm: 172.72, Wt-k.99 kg. * Examination: ???General Examination: ???This is a young female. Alert and oriented today and in no acute distress. Patient comes in ambulating in crocs without using any assistive devices. Breathing is regular and unlabored while sitting. Affect is pleasant and cooperative. No unusual anxiety or depression noted. Hearing intact to spoken word. No evidence of visual impairment that would impact self care or ambulation. Patient has palpable dorsalis pedis and posterior tibial pulse bilaterally. No varicosities visualized. Capillary refill is less than 3 seconds to all digits bilaterally. Light touch sensation is symmetrical to all lower extremity dermatomes. Babinski is downgoing. Skin has normal turgor and texture. There are no open wounds, rashes, or lesions noted. There is mild onychocryptosis to the medial borders of the right and left hallux toenails. No erythema, edema, or drainage from the medial nail folds. No abnormal thickness or lysis of the hallux nail plates. There is tenderness to the medial nail folds. No gross deformities to either hallux. Subtalar and ankle joint range of motion are unrestricted. 5/5 strength for anterior, posterior, and lateral lower extremity muscle groups on the left and right. Therapeutic Interventions: Assessment: * Assessment: 1.?Ingrown toenail of both f eet - L60.0 (Primary)?2.?Pain around toenail, right foot - M79.674?3.?Pain around toenail, left foot - M79.675? Plan: * Treatment: 2.?Pain around toenail, righ t foot?Procedure: Nail avulsion partial/complete 3.?Pain around toenail, left foot?Procedure: Nail avulsion each add nail plate * Procedures:?PARTIAL TOENAIL AVULSIONS:A consent was gone over in detail today with the patient about nail avulsion procedures. We discussed all risks and benefits in detail. Risks included pain, infection, bleeding, deformity of nail plate, need for another nail procedure, loss of nail plate, nerve pain, nerve damage, bruising, and swelling. Benefits included decrease in pain and decrease infection. Patient agreed to have the medial borders of the left and right hallux toenails removed today. RIGHT HALLUX The patient's right hallux was prepped with chlorahexadine solution and draping was applied. 5mL of 1% Lidocaine plain was infiltrated using a digital nerve block technique. Pt tolerated the injection well. Anesthesia was tested with forceps. Using a sterile elevator, the nail bed was freed of the medial border of the nail dorsally, medially, and plantarly. Using an montserratian anvil nail splitter, the medial border was cut. Straight hemostats were used to remove the border of the nail. The area was then inspected and no other nail remnants were seen. The area was cleansed, all bleeding was controlled with pressure. A dressing was applied to the toe. Pt tolerated the procedure well. LEFT HALLUX The patient's left hallux was prepped with chlorahexadine solution and draping was applied. 3mL of 1% Lidocaine plain was infiltrated using a digital nerve block technique. Pt tolerated the injection well. Anesthesia was tested with forceps. Using a sterile elevator, the nail bed was freed of the medial border of the nail dorsally, medially, and plantarly. Using an montserratian anvil nail splitter, the medial border was cut. Straight hemostats were used to remove the border of the nail. The area was then inspected and no other nail remnants were seen. The area was cleansed, all bleeding was controlled with pressure. A dressing was applied to the toe. Pt tolerated the procedure well. ? * Procedure Codes:?84478 REMOV AL OF NAIL PLATE, Modifiers: T5 11144 REMOVE NAIL PLATE, ADD-ON, Modifiers: TA * Follow Up:?2 Weeks * Billing Information: * Visit Code:? 75658 Office Visit, New Pt., Level 3. Modifiers: 25 * Procedure Codes:? 78064 REMOVAL OF NAIL PLATE. Modifiers: T5 60314 REMOVE NAIL PLATE, ADD-ON. Modifiers: TA * Sign off status: Completed true * Provider:Juancarlos Lee DPM Date:?12/05 Generated for David apple/Brigette/Susannaitting on:?03/02/2024 02:23 PM EST History and Physical Notes * Examination Category Sub-Category Detail Notes Category Not es General Examination This is a young female. Alert and oriented today and in no acute distress. Patient comes in ambulating in crocs without using any assistive devices. Breathing is regular and unlabored while sitting. Affect is pleasant and cooperative. No unusual anxiety or depression noted. Hearing intact to spoken word. No evidence of visual impairment that would impact self care or ambulation. Patient has palpable dorsalis pedis and posterior tibial pulse bilaterally. No varicosities visualized. Capillary refill is less than 3 seconds to all digits bilaterally. Light touch sensation is symmetrical to all lower extremity dermatomes. Babinski is downgoing. Skin has normal turgor and texture. There are no open wounds, rashes, or lesions noted. There is mild onychocryptosis to the medial borders of the right and left hallux toenails. No erythema, edema, or drainage from the medial nail folds. No abnormal thickness or lysis of the hallux nail plates. There is tenderness to the medial nail folds. No gross deformities to either hallux. Subtalar and ankle joint range of motion are unrestricted. 5/5 strength for anterior, posterior, and lateral lower extremity muscle groups on the left and right.
--- OUTSIDE RECORDS SUMMARY | 2024-03-02 14:23 | XMS_ITS ---
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 Name Role Phone OnofreJuanita Primary Care Provider KATIE Stover Unavailable [phone] Allergies Allergen (clinical drug ingredient) Drug/Non Drug Allergy documented on EMR Reaction Allergy Type Onset Date Status Compazine Unknown Drug Allergy Active codeine Codeine vomiting Drug Allergy Active REASON FOR VISIT 2wk f/u to Lt foot great toenail ingrown Medications Medication SIG (Take, Route, Fr equency, Duration) Notes Start Date End Date Status Lexapro 20 MG 1 tablet Orally Once a day Active Depo-Provera 150 MG/ML 1 mL Intramuscular Active Motegrity 1 MG 1 tablet Orally Once a day Active Dexilant 60 MG 1 capsule Orally Once a day Active Vital Signs Weight 158.1 lbs 12/19/2022 BMI 24.04 kg/m2 12/19/2022 Heart Rate 81 /min 12/19/2022 Blood pressure systolic 100 mm Hg 12/20/19 23 Blood pressure diastolic 62 mm Hg 023 Temperature 97.1 degrees Fahrenheit 12/20/19 23 Respiratory Rate 14 /min 12/19/2022 Encounters Encounter Location Date Provider Diagnosis [facility] [address] [address] 12/19/2022 KATIE CONNOLLY Ingrown toenail of both feet L60.0 ; Pain around toenail, right foot M79.674 and Pain around toenail, left foot M79.675 Assessments Encounter Date Diagnosis (ICD Code) Assessment Notes Treatment Notes Treatment Clinical Notes Section Notes 12/19/2022 Ingrown toenail of both feet (ICD-10 - L60.0) Patient was seen and examined, history reviewed. She is 2 weeks s/p partial avulsions for symptomatic ingrown toenails to the medial borders of the left and right hallux toenails. She has had great improvement in pain. The surgical sites are well healed. She can follow back with me as needed. 12/19/2022 Pain around toenail, right foot (ICD-10 - M79.674) 12/19/2022 Pain around toenail, left foot (ICD-10 - M79.675) Plan Of Treatment Treatment Notes Assessment Notes Ingrown toenail of both feet Patient was seen and examined, history reviewed. She is 2 weeks s/p partial avulsions for symptomatic ingrown toenails to the medial borders of the left and right hallux toenails. She has had great improvement in pain. The surgical sites are well healed. She can follow back with me as needed. Progress Notes * Laura BARBERDOB:2000 (22 yo F)Acc No.[id number]:12/19/2022 Progress Notes Patient:?Laura BARBER Provider:?Katie Lee DPShayy :2000???Age:22 Y???Sex:Female D ate:12/19/2022 Address:[address] [place] [id number] Pcp:Juanita Adhikari Subjective: * Chief Complaints: * ???2wk f/u to Lt foot great toenail ingrown * HPI: ???Foot & Ankle:? Ms. Barber is a pleasant 22 year old female who presents for a follow up of her ingrown toenail procedures to both great toes. She states that she has no pain. She has not had any redness, swelling or drainage from the surgical sites. She has stopped applying bandages to the toes over the past week. * ROS:?Respiratory:?Denies?Cough.?Denies?Shortness of breath,?denies.?Denies?Wheezing.?Gastrointestinal:?Denies?Abdominal pain.?Denies?Constipation.?Denies?Diarrhea.?Hematology:?Denies?Bleeding problems,?denies.?Denies?Easy bruising,?denies.?Denies?Swollen glands.?Musculoskeletal:?Denies?Arthritis/Arthralgia.?Denies?Back problems.?Denies?Leg cramps.?Denies?Limping gait.?Neurologic:?Denies?Paralysis.?Denies?Tingling/Numbness.?Denies?Tremor.? * Medical History:? * Surgical History:?intussusce ption 2004exploratory laparoscopic surgery 2011 and 2019- adhesions/endometriosis bowel obstruction/ resection 2020 * Hospitalization/Major Diagno stic Procedure:?intussusception 2004bowel obstruction/resection 2020 * Family History:?Mother: hypo thyroidism.?Paternal Grand Father: arthritis.?Maternal Grand Father: hypertension.?Maternal Grand Mother: lymph node on groin.?Maternal uncle: gallbladder cancer.? 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 * Medications:?TakingDepo-Prov era 150 MG/ML Suspension 1 [...] reconciled with the patient * Allergies:?Codeine: vomiting Compazineno[Allergies Verified] Objective: * Vitals:?Wt:158.1lbs, BMI:24. 04Index, HR:81/min, BP:100/62mm Hg, Temp:97.1F, RR:14/min, Ht-cm: 172.72, Wt-k.71 kg. * Examination: ???General Examination: ???This is [...] no open wounds, rashes, or lesions noted. The medial borders of the left and right hallux toenails have healed nicely. No erythema, edema, or drainage from the medial nail folds. No abnormal thickness or lysis of the hallux nail plates. No pain to the medial nail folds. No gross deformities to either hallux. Subtalar and ankle joint range of motion are unrestricted. 5/5 strength for anterior, posterior, and lateral lower extremity muscle groups on the left and right. Assessment: * Assessment: 1.?Ingrown toenail of both f eet - L60.0 (Primary)?2.?Pain around toenail, right foot - M79.674?3.?Pain around toenail, left foot - M79.675? Plan: * Treatment: * Procedure Codes:? * Billing Information: * Visit Code:? 49564 Office Visit, Est Pt., Level 2. * Procedure Codes:? * Sign off status: Completed true * Provider:?Katie Lee DP Date:?12/19 Generated for David apple/Brigette/Juan Diegosmitting on:?03/02/2024 02:23 PM EST History and Physical [...] no open wounds, rashes, or lesions noted. The medial borders of the left and right hallux toenails have healed nicely. No erythema, edema, or drainage from the medial nail folds. No abnormal thickness or lysis of the hallux nail plates. No pain to the medial nail folds. No gross deformities to either hallux. Subtalar and ankle joint range of motion are unrestricted. 5/5 strength for anterior, posterior, and lateral lower extremity muscle groups on the left and right.
--- OUTSIDE RECORDS SUMMARY | 2024-03-02 14:23 | XMS_ITS | Continuity of Care Document ---
Author Organization [facility] ter Address [address] [place] [address]- Support Name Relationship Address Phone RODNEY BARBER father Unknown Unavailable ELISABETH, FEDERICO Personal Relationship Unknown Kassandra vailable ELISABETH, FEDERICO Personal Relationship Unknown Kassandra vailable ELISABETH, RODNEY mother Unknown Unavailable ELISABETH, FEDERICO Personal Relationship Unknown Kassandra vailable ELISABETH, FEDERICO Personal Relationship Unknown Kassandra vailable ELISABETH, FEDERICO Personal Relationship Unknown Kassandra vailable ELISABETH, FEDERICO Personal Relationship Unknown Kassandra vailable ELISABETH, FEDERICO Personal Relationship Unknown Kassandra vailable ELISABETH, FEDERICO Personal Relationship Unknown Kassandra vailable ELISABETH, FEDERICO Personal Relationship Unknown Kassandra vailable ELISABETH, FEDERICO Personal Relationship Unknown Kassandra vailable ELISABETH, FEDERICO Personal Relationship Unknown Kassandra vailable ELISABETH, FEDERICO Personal Relationship Unknown Kassandra vailable ELISABETH, RODNEY mother Unknown Unavailable ELISABETH, FEDERICO father Unknown Unavailable ELISABETH, FEDERICO Personal Relationship Unknown Kassandra vailable ELISABETH, FEDERICO father Unknown Unavailable ELISABETH, FEDERICO Personal Relationship Unknown Kassandra vailable 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 Phone [facility] Juanita SAHNI Primary Care Physician [phone] Encounter [facility] [place] Date(s): 02/26/24 - 02/27/[address] [address]- Encounter Diagnosis COVID-19(Final) - 02/27/24 Chest pain(Final) - 02/27/24 Shortness of breath(Final) - 02/27/24 Discharge Disposition: A-D/C Home Attending Physician: Kaci Grissom DO Admitting Physician: Kaci Grissom DO Referring Physician: Not on Staff, Referring MD Encounter Type: Disch ES Allergies, Adverse Reactions, Alerts Substance Criticality Severity Reaction Reaction Severity Status codeine vomit nausea Active Compazine Dystonia Active Immunizations Given and Recorded Vaccine Date Status Refusal Reason SARS-CoV-2 (COVID-19) mRNA-1273 vaccine 05/24/20 R ecorded SARS-CoV-2 (COVID-19) mRNA-1273 vaccine 04/27/20 R ecorded Medications Albuterol (Eqv-ProAir HFA) Inhalation, PRN Wheezing/Shortness of Breath, 0 Refills, Maintenance, 10/20/23 3:26:00 PM EDT, Partial fill upon patient request if the prescription is for a schedule II opioid drug. Start Date: 10/20/23 Status: Ordered Repeat number: 1 calcitriol 0.25 mcg oral capsule 1 capsule = 0.25 mcg, By Mouth, Daily, # 60 capsule, 1 Refills, Maintenance, 10/22/23 7:56:00 AM EDT, Capsule, [facility]/pharmacy #[id number], Partial fill upon patient request if the prescription is for a schedule II opioid drug., 172, cm, 10/22/23 0:02:00 EDT, Height, 77.6, kg, 10/21/23 10:29:00 EDT, Dry Weight Start Date: 10/22/23 Status: Ordered Quantity: 60.0 Unit: capsule Repeat number: 2 calcium and vitamin D combination 315 mg-200 iu oral tablet 2 tablet, By Mouth, 3 times a day, # 120 tablet, 1 Refills, Maintenance, 10/22/23 5:45:00 PM EDT, Tablet, [facility] 3, Partial fill upon patient request if the prescription is for a schedule II opioid drug., 2 tablet By Mouth 3 times a day, 172, cm, 10/22/23 0:02:00 EDT, Height, 77.6, kg, 10/21/23 10:29:00 EDT, Dry Weight Start Date: 10/22/23 Status: Ordered Quantity: 120.0 Unit: tablet Repeat number: 2 cloNIDine 0.1 mg oral tablet 0.1 mg, 1, tablet, By Mouth, 2 times a day, PRN, Refills 0, Maintenance, Anxiety, 10/09/23 11:29:00 AM EDT, Partial fill upon patient request if the prescription is for a schedule II opioid drug. Start Date: 10/09/23 Status: Ordered Repeat number: 1 Dexilant = 60 mg, By Mouth, Daily at bedtime, 0 Refills, Maintenance, 09/29/19 10:15:00 AM EDT Start Date: 09/29/19 Status: Ordered Repeat number: 1 docusate sodium 100 mg oral capsule 1 capsule = 100 mg, By Mouth, Daily, PRN as needed for constipation, # 30 capsule, 0 Refills, Maintenance, 10/22/23 7:28:00 AM EDT, Capsule, [facility]/pharmacy #[id number], Partial fill upon patient request if the prescription is for a schedule II opioid drug., 172, cm, 10/22/23 0:02:00 EDT, Height, 77.6, kg, 10/21/23 10:29:00 EDT, Dry Weight Start Date: 10/22/23 Status: Ordered Quantity: 30.0 Unit: capsule Repeat number: 1 duloxetine 20 mg oral enteric coated capsule 2 capsule = 40 mg, By Mouth, Daily at bedtime, 0 Refills, Maintenance, 08/27/23 10:06:00 AM EDT, Partial fill upon patient request if the prescription is for a schedule II opioid drug. Start Date: 08/27/23 Status: Ordered Repeat number: 1 hyoscyamine 0.125 mg oral tablet 0.25 mg, 2, tablet, By Mouth, 4 times a day, PRN, # 120 tablet, Refills 1, Tot. Refills 1, Maintenance, for spasm, 07/04/21 6:01:00 AM EDT, Route to Pharmacy Electronically, [facility]/pharmacy #[id number], Partialfill upon patient request if the prescription is for a schedule II opioid drug., 170, cm, 05/25/21 11:46:00 EDT, Height, 64, kg, 05/25/21 11:46:00 EDT, Dry Weight Start Date: 07/04/21 Status: Ordered Quantity: 120.0 Unit: tablet Repeat number: 2 Lab draw: Calcium, Albumin Lab draw: Calcium, Albumin, See Instructions, # 1 Unknown, Refills 0, Tot. Refills 0, Maintenance, Lab draw: Calcium, Albumin, 10/22/23 7:32:00 AM EDT, Supply Start Date: 10/22/23 Stop Date: 10/29/23 Status: Ordered Quantity: 1.0 Unit: Unknown Repeat number: 1 levothyroxine 125 mcg (0.125 mg) oral tablet = 125 mcg, By Mouth, Daily, # 60 tablet, 2 Refills, Maintenance, 10/22/23 7:55:00 AM EDT, Tablet, [facility]/pharmacy #[id number], Partial fill upon patient request if the prescription is for a schedule II opioid drug., 172, cm, 10/22/23 0:02:00 EDT, Height, 77.6, kg, 10/21/23 10:29:00 EDT, Dry Weight Start Date: 10/22/23 Status: Ordered Quantity: 60.0 Unit: tablet Repeat number: 3 LORazepam 0.5 mg oral tablet 1 tablet = 0.5 mg, By Mouth, 2 times a day, PRN as needed for anxiety, 0 Refills, Maintenance, 10/20/23 3:25:00 PM EDT, Tablet, Partial fill upon patient request if the prescription is for a schedule II opioid drug. Start Date: 10/20/23 Status: Ordered Repeat number: 1 medroxyPROGESTERone 150 mg/mL intramuscular suspension 1 mL, Intramuscular, Every 3 months, # 1 mL, 1 Refills, Maintenance, 08/17/23 10:00:00 AM EDT, [facility], 172.7, cm, 05/22/23 14:13:00 EDT, Height, 72, kg, 06/25/22 9:47:00 EDT, Dry Weight Start Date: 08/17/23 Status: Ordered Quantity: 1.0 Unit: mL Repeat number: 2 Motegrity 1 mg oral tablet By Mouth, Daily at bedtime, 0 Refills, Maintenance, 06/27/20 1:21:00 PM EDT, Partial fill upon patient request if the prescription is for a schedule II opioid drug. Start Date: 06/27/20 Status: Ordered Repeat number: 1 Symbicort 80mcg/4.5mcg Inhaler 2, puffs, Inhalation, 2 times a day, # 10.2 Gm, Refills 0, Maintenance, 08/29/21 9:19:00 AM EDT, Aerosol Start Date: 08/29/21 Status: Ordered Quantity: 10.2 Unit: g Repeat number: 1 topiramate 25 mg oral capsule 1 capsule = 25 mg, By Mouth, Daily at bedtime, 0 Refills, Maintenance, 08/27/23 9:35:00 AM EDT, Partial fill upon patient request if the prescription is for a schedule II opioid drug. Start Date: 08/27/23 Status: Ordered Repeat number: 1 Problem List Condition Confirmation Course Effective Dates Status H ealth Status Informant Abdominal pain Confirmed Active Asthma Confirmed Active COVID-19 1 Confirmed 02/27/24 Active Dysmenorrhea in adolescent Confirmed Active Endometriosis Confirmed Active Factor V Leiden mutation Confirmed Active 1Problem added by Discern Expert Results Radiology Reports * Exam Date Time Procedure Performing Provider Status 02/26/24 9:36 PM Chest 2 Views Frontal and Lat Randal Rubio; Auth (Verified) Notes: (Chest 2 Views Frontal and Lat) Reason For Exam: Chest Pain;Other: RESULT: Chest 2 Views Frontal and Lat Chest 2 Views Frontal and Lat Hx of Present Illness: CP SOB; Reason: Other:; Chest Pain; Clinical Question(s): Other: COMPARISON: 09/04/2020 FINDINGS: LINES AND TUBES: None. LUNGS AND PLEURA: Left upper lobe nodular opacity prominent than on previous exam. Suggest CT scan follow-up. No pleural effusion. No pneumothorax. HEART, MEDIASTINUM AND OMID: Normal. BONES AND SOFT TISSUES: Normal. IMPRESSION: Increased nodular opacity in the left upper lung field compared to previous examination 09/04/2020. Suggest CT scan follow-up. Alternatively, repeat chest x- ray could be performed in 2 months. WSN: [id number] Ordering Physician: Kaci Grissom Dictated By: Rm Breaux MD Dictated Date/Time: 02/26/24 10:16 p Reviewed By: Rm Breaux MD Signed By: Rm Breaux MD Signed Date/Time: 02/26/24 10:16 pm Transcribed By: EUGENE Transcribed Date/Time: 02/26/24 10:15 pm Vital Signs Most recent to oldest [Reference Range]: 1 2 3 Height 173 cm (02/26/24 7:28 PM) Weight 77.5 kg (02/26/24 7:28 PM) Oxygen Saturation [94-100 %] 100 % (02/26/24 9:20 PM) 100 % (02/26/24 8:52 PM) 100 % (02/26/24 7:28 PM) Pulse Rate [55-90 bpm] 69 bpm (02/26/24 9:20 PM) 76 bpm (02/26/24 8:52 PM) 84 bpm (02/26/24 7:28 PM) Body Mass Index [18.5-24.99 kg/m2] 25.89 kg/m2 *H* (02/26/24 7:28 PM) Blood Pressure [90-138/55-84 mm Hg] 108/75mm Hg (02/26/24 9:20 PM) 111/79mm Hg (02/26/24 8:52 PM) 119/72mm Hg (02/26/24 7:28 PM) Respiratory Rate [16-30 br/min] 20 br/min (02/26/24 9:20 PM) 26 br/min (02/26/24 8:52 PM) 32 br/min *H* (02/26/24 7:28 PM) Temperature [96.8-100.4 DegF] 98.5 DegF (02/26/24 8:52 PM) 98.1 DegF (02/26/24 7:28 PM) Mode of Delivery (Oxygen) Room air (02/26/24 9:20 PM) Room air (02/26/24 8:52 PM) Room air (02/26/24 7:28 PM) Blood pressure sites Arm, left (02/26/24 9:20 PM) Arm, left (02/26/24 8:52 PM) Arm, left (02/26/24 7:28 PM) Temperature Route Oral (02/26/24 8:52 PM) Oral (02/26/24 7:28 PM) Dry Weight 77.5 kg (02/26/24 7:28 PM) Weight Obtained Via Patient/family state d (02/26/24 7:28 PM) Dry Weight Obtained Via Patient/family s tated (02/26/24 7:28 PM) Social History Social History Type Response Smoking Status Never smoker; Tobacc o user in household: No entered on: 12/17/17 Sex Sex Representation Female (finding) EKG study * Event Display: ECG 12-Lead Authored Date: Please click on pdf link to open report * Event Display: ECG 12-Lead Authored Date: Ventricular Rate: 67 BPM Atrial Rate: 67 BPM P-R Interval: 128 ms QRS Duration: 84 ms Q-T Interval: 394 ms QTC Calculation(Bazett): 416 ms P [place]: 71 degrees R [place]: 57 degrees T [place]: 21 degrees Normal sinus rhythm Normal ECG When compared with ECG of 26-Feb-2024 20:35, MANUAL COMPARISON REQUIRED DATA IS UNCONFIRMED Confirmed by JOLYNN ESCALANTE MD ([id number]) on 02/27/2024 9:41:23 AM [place]: JOLYNN ESCALANTE MD * Event Display: ECG 12-Lead Authored Date: [id number] Please click on pdf link to open report * Event Display: ECG 12-Lead Authored Date: [id number] Ventricular Rate: 78 BPM Atrial Rate: 78 BPM P-R Interval: 126 ms QRS Duration: 84 ms Q-T Interval: 372 ms QTC Calculation(Bazett): 424 ms P [place]: 69 degrees R [place]: 56 degrees T [place]: 5 degrees Normal sinus rhythm Normal ECG When compared with ECG of 28-Apr-2022 09:28, Nonspecific T wave abnormality now evident in Anterior leads Confirmed by JOLYNN ESCALANTE MD ([id number]) on 02/27/2024 9:41:25 AM [place]: JOLYNN ESCALANTE MD Patient Care team information Care Team Personnel Name: Bernardino Brennan RN Position: [facility] RN Member Role: Primary Care Nurse Name: Teresa Frias RN Position: [facility] RN Member Role: Primary Care Nurse Name: Juanita Adhikari MD Position: [facility] Physician - Pediatrics Member Role: PCP Address: [address] [place] [address]- Telecom: Name: Lu Morgan NP Position: [facility] PCO Associate Professional Member Role: Primary Care Nurse Address: [address] [place] [address] [place] [address]- Telecom: Care Team Related Persons Name: RODNEY BARBER Name: RODNEY BARBER Name: RODNEY BARBER Name: FEDERICO BARBER Name: FEDERICO BARBER Insurance Providers Guarantor name: FEDERICO BARBER Health Plan Information #: 1 Payer: [facility] POS Member Number: [id number] Policy Number: NA Group Number: [id number] Health Plan Information #: 2 Payer: [facility] [place] Member Number: [id number] Policy Number: NA Group Number: [id number]
--- OUTSIDE RECORDS SUMMARY | 2024-03-02 14:24 | XMS_ITS ---
Author Name [facility] Organization Unknown History of Medication Use Medication Directions Dispensed Refills Start Date End Date Status Motegrity 2 MG tablet TAKE 1 TABLET BY MOUTH EVERY DAY 4 active fluconazole (diFLUcan) 150 MG tablet fluconazole 150 mg tablet 2 aborted prucalopride succinate (MOTEGRITY) 2 MG tablet Take 1 tablet (2 mg total) by mouth daily. 2 aborted HPV 9-Valent Recomb Vaccine (Gardasil 9) Suspension Prefilled Syringe Gardasil 9 (PF) 0.5 mL intramuscular syringe 2 aborted dexlansoprazole (DEXILANT) 60 MG capsule TAKE 1 CAPSULE BY MOUTH EVERY DAY 2 active meningococcal group B recombinant vaccine (Bexsero) Suspension Prefilled Syringe injection Bexsero 50 mcg-50 mcg-50 mcg-25 mcg/0.5 mL intramuscular syringe 2 aborted Symbicort 160-4.5 MCG/ACT inhaler Inhale 2 puffs 2 (two) times a day. DIRECTED 2 active Motegrity 1 MG tablet Take 1 tablet (1 mg total) by mouth daily. 2 active polyethylene glycol (miraLAx) 17 GM/SCOOP powder See Instructions, 17 Gm By Mouth twice daily . dissolve in water or juice, # 527 Gm, 1 Refills, Maintenance, 03/14/21 10:17:00 EST, REC Powder, [facility]/pharmacy #[id number], Partial fill upon patient request if the prescription is for a schedule II opioid drug... 2 active medroxyPROGESTERone (DEPO-PROVERA) 150 mg/mL injection 2 active sertraline (ZOLOFT) 100 MG tablet Take 100 mg by mouth daily. 2 active Motegrity 1 MG tablet Take 1 tablet (1 mg total) by mouth daily. 2 active hydrOXYzine pamoate (VISTARIL) 25 MG capsule TAKE 1 CAPSULE BY MOUTH EVERY 8 HOURS NEEDED FOR ANXIETY 2 active cyproheptadine (PERIACTIN) 4 MG tablet Take 1 tablet (4 mg total) by mouth 3 (three) times a day. 2 aborted iohexol (OMNIPAQUE) 350 mg/mL injection 80 mL 80 mL, Intravenous, Once in imaging, contrast, Starting on Lisset 12/12/21 at 1117, For 1 dose, Radiology Appointment 2 completed amoxicillin-clavulanate (AUGMENTIN) 875-125 MG per tablet Take 1 tablet by mouth 2 (two) times a day. For 7 days 2 aborted methylcellulose (Citrucel) oral powder Take 2 g by mouth. 2 aborted ondansetron (ZOFRAN-ODT) 4 MG disintegrating tablet 2 active oxybutynin (DITROPAN-XL) 10 MG 24 hr tablet Take 10 mg by mouth. 2 active hyoscyamine (LEVSIN) 0.125 MG tablet Take 0.25 mg by mouth. 2 active Problems Problem Status Onset Date Problem Type Date of Resolution Source Endometriosis active 2021-12-25 ProblemAct [facility] T Abdominal pain active 2021-12-[address] Gastroesophageal reflux disease without esophagitis active EncounterDiagnosisAct [facility] Asthma active 2021-12-25 ProblemAct [facility] Constipation, unspecified constipation type active EncounterDiagnosisAct [facility] Factor V Leiden mutation active 2021-12-25 ProblemAct [facility] Dysmenorrhea active 2021-12-25 ProblemAct [facility]
--- OUTSIDE RECORDS SUMMARY | 2024-03-02 14:24 | XMS_ITS | Continuity of Care Document ---
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 Name Role Phone Juanita Adhikari MD Care Team Information Hourly Caregiver + [phone] Problems Active Problems Provider Date Endometriosis (clinical) MUSTAPHA Macias Onse t: 09/01/2023 Anxiety MUSTAPHA Macias Onset: 2023 H/O: depression MUSTAPHA Macias Onset: 2023 Gastroesophageal reflux disease MUSTAPHA Macias Onset: 09/01/2023 Irritable bowel syndrome MUSTAPHA Macias Onse t: 09/01/2023 Asthma MUSTAPHA Macias Onset: 2023 Social History Type Date Description Comments 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 11/23/2023 [id number] Tablets 1 by mouth every day Bossman Flores MD Medroxyprogesterone [id number]/ml Suspension Unknown 0 [id number] Tablets 1 by mouth every day Unknown Clonidine HCL0.1mg Tablets Take 1 Tablet By Mouth Every 8 Hours as Needed For Anxiety Juanita Adhikari MD [id number] Capsules DR Hobbs Vital Signs Date Vital Result Comment 01/01/2024 10:38am BP Systolic 120 mmHg BP Diastolic 70 mmHg Heart Rate 101 /min Height 68 inches 5'8 Weight 176.50 lb BMI (Body Mass Index) 26.8 kg/m2 Results Test Acquired Date Facility Test Result H/L Range Note TSH+Free T4 02/16/2024 [facility] TSH 0.071 uIU/mL Low 0.450-4.5 00 T4,Free(Direct) 1.62 ng/dL 0.82- 1.77 TSH Rfx on Abnormal to Free T4 01/01/2024 [facility] TSH RFX On Abnormal To Free T4 0.055 uIU/mL Low 0.450-4.5 00 T4,Free (Direct) 2.17 ng/dL High 0.82 -1.77 Laboratory test finding 11/19/2023 [facility] hCG,Beta Subunit, Qnt <1 mIU/mL 1 Laboratory test finding 11/19/2023 [facility] Thyroid Peroxidase (Tpo) Ab 296 IU/mL High 0-34 Laboratory test finding 11/09/2023 [facility] TSH 13.900 uIU/mL High 0.450-4.5 00 Thyroxine (T4) Free, Direct 0.39 ng/dL Low 0.82-1.77 Triiodothyronin e (T3), Free 1.2 pg/mL Low 2.0-4.4 Laboratory test finding 09/01/2023 [facility] Thyroid Peroxidase (Tpo) Ab >600 IU/mL High 0-34 1 Female (Non- ) 0 - 5 (Postmenopausal) 0 - 8 Female () Weeks of Gestation 3 6 - 71 4 10 - 750 5 042 - 6328 6 562 - 78940 7 [phone] -[id number] 8 [phone] -[phone] 9 93108 -[phone] 10 49269 -126937 12 13114 -[phone] 14 23454 - 35190 15 89021 - 82863 16 0345 - 56661 17 8880 - 72348 18 9371 - 42606 Seda ECLIA methodology Medical Devices Description No Information Available Encounters Type Date Location Provider Dx Diagnosis Office Visit 01/01/2024 10:30a Main Office MUSTAPHA Macias C73 Malignant derek plasm of thyroid gland 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 dx: malignant thyroid neoplasm Clos ed 10/09/[address] [place] [address] (Notes Only) SHARON Calle [phone]
[2024-03-02 14:33] VITALS: BP 131/93; PULSE 98; RESP 20; TEMP 36.6; O2SAT 100; BMI 26.4
--- NOTE | 2024-03-02 14:33 | ED_ITS ---
HPI - Extremity Injury (Lower) General Chief Complaint: Dyspnea Stated Complaint: SOB Time Seen by Provider: 03/02/24 15:34 Source: patient, RN notes reviewed, old records reviewed and other (outside ED record) Mode of arrival: ambulatory Limitations: no limitations History of Present Illness ED Provider: Igor HPI Narrative: Patient is a 23-year-old female with history of factor V Leiden no known thromboembolic events, thyroidectomy for papillary thyroid cancer, abdominal surgery due to intussusception as a child, asthma, GERD presenting to the emergency department with complaint of chest pain, palpitations, and shortness of breath while at work. Symptoms began on 02/20, she then tested positive for Covid on 02/21. She was not treated with any antiviral medications. This is her third Covid infection. She denies any similar symptoms with first two Covid infections. She went to urgent care on 02/25 and was sent to [facility] to rule out a PE. She had a negative d-dimer, negative chest x-ray, and bedside ultrasound which ruled out effusion. Today was her first day back to work, noted her HR to be 130-140 while ambulating on [employer]. States chest pain has been constant, described as a tightness to the center of her chest. Denies any pedal edema. States she was previously worked up by cardiology for POTS and told she was borderline. Related Data Home Medications ?Medication ?Instructions ?Recorded ?Confirmed budesonide-formoterol HFA 80 2 puff inhalation Q12H 04/24/23 08/06/23 mcg-4.5 mcg/actuation aerosol inhaler (Symbicort) dexlansoprazole 60 mg 60 mg PO BEDTIME 04/24/23 08/06/23 capsule,biphase delayed release medroxyprogesterone 150 mg/mL 150 mg IM [id number] 04/24/23 08/06/23 intramuscular suspension prucalopride 2 mg tablet 2 mg PO BEDTIME 04/24/23 08/06/23 (Motegrity) clonidine HCl 0.1 mg tablet 0.1 mg PO Q8H PRN anxiety 08/06/23 08/06/23 duloxetine 20 mg capsule,delayed 20 mg PO BEDTIME 08/06/23 08/06/23 release Previous Rx's ?Medication ?Instructions ?Recorded ondansetron 4 mg disintegrating 4 mg PO Q6H PRN nausea and 03/12/23 tablet vomiting #20 tabs voqhlrpybv-vapoukfcswnar-pnwntsmu 1 cap PO Q4-6H PRN pain #15 caps 08/15/23 50 mg-300 mg-40 mg capsule (Fioricet) meclizine 25 mg tablet 25 mg PO TID PRN dizziness #20 tabs 08/15/23 Allergies Allergy/AdvReac Type Severity Reaction Status Date / Time prochlorperazine Allergy Unknown Verified 03/02/24 14:35 [From Compazine] codeine AdvReac Vomiting Verified 03/02/24 14:35 Review of Systems 2 Review of Systems: As per HPI. Yes all other systems are reviewed and are negative Constitutional: Constitutional: Reports as per HPI [facility] Past Medical History Medical History Depression Anxiety Factor 5 Leiden mutation, heterozygous Asthma GERD (gastroesophageal reflux disease) IBS (irritable bowel syndrome) Bowel obstruction Endometriosis Surgical History Hx of colonoscopy History of esophagogastroduodenoscopy (EGD) Hx of small bowel obstruction Hx of exploratory laparotomy Family History Family History Maternal Uncle Gallbladder cancer Mother Gallbladder disease Maternal Grandmother Gallbladder disease Social History Social History Household Members: Family Housing: House Do you presently have visiting nurse or other home services: No Alcohol intake: current Alcohol intake frequency: holidays/special occasions only Patient Tobacco Use Status: Never used Tobacco Advance Directives: No Advance Directives Information Provided: No service: No Physical Exam 2 Vital Signs: Vital Signs: Last Vital Signs Temp 97.5 F 03/02/24 18:21 Pulse 87 03/02/24 18:21 Resp 18 03/02/24 18:21 BP 116/70 03/02/24 18:21 Pulse Ox 100 03/02/24 18:21 O2 Del Method Room Air 03/02/24 18:21 BMI result Body Mass Index 26.4 Vital signs have been reviewed and appear to be correct. Blood pressure normal. Heart rate normal. Respiratory rate normal. Temperature normal. Oxygen saturation normal. Const: General: cooperative, healthy appearing and no acute distress O rientation/consciousness: oriented to person, oriented to place, oriented to time and patient oriented x3 Limitations: no limitations HEENT: Head: Yes normocephalic and Yes atraumatic Ears: external ears normal General nose exam: Normal external nose present Face and sinus: Yes face symmetric Mouth: oropharynx normal and moist mucous membranes Throat: Yes uvula midline Eyes: Pupils: Equal, round and reactive pupils present Neck: Neck: Yes normal visual inspection and Yes supple Resp: Effort & Inspection: normal respiratory effort and able to speak in complete sentences Auscultation: clear to auscultation bilaterally Cardio: Rate: regular rate Rhythm: regular rhythm Heart sounds: S1 normal heart sound present and S2 normal heart sound present GI: Palpation (GI): Soft to palpation and nontender Auscultation: n ormoactive bowel sounds : General: Yes no CVA tenderness Back/Spine/Pelvis: Back: no CVA tenderness Skin: General skin exam: elasticity normal and turgor normal Neuro: General: oriented to person, oriented to place, oriented to time, patient oriented x3, moves all extremities, no focal motor deficits and CN's II- XI intact bilaterally Cranial nerves: Yes Equal, round and reactive pupils present Cognition (Neuro): normal cognition Extrem: General: Yes full ROM, Yes no pedal edema and Yes no calf tenderness Psych: Mental Status: mental status grossly normal Affect: normal affect Thought process: Normal thought process present Course Course Course Narrative: RME, this is a rapid medical exam performed by Matthew Weinberg please refer to primary provider for complete H&P- 23-year-old female with past medical history significant for factor 5 Leiden deficiency, a thyroid cancer status post radiation treatment, asthma, endometriosis on Depo-Provera presents for evaluation of shortness of breath, chest pain and palpitations. She was seen at [facility] ER 5 days ago and had labs, a chest x-ray, ultrasound of the heart, and a D-dimer, all of which was reportedly normal. Plan for repeat labs, will defer any imaging at this time to primary ER provider. Medications Administered Discontinued Medications Generic Name Dose Route Start Last Admin Trade Name Freq PRN Reason Stop Dose Admin Potassium Chloride 40 meq 03/02/24 16:00 03/02/24 17:17 Potassium Chloride Packet 20 Meq Packet PO 03/02/24 16:01 40 meq ONCE ONE Administration Medical Decision Making Medical Decision Making [facility] Narrative: Patient is a 23-year-old female with history of factor V Leiden no known thromboembolic events, thyroidectomy for papillary thyroid cancer, abdominal surgery due to intussusception as a child, asthma, GERD presenting to the emergency department with complaint of chest pain, palpitations, and shortness of breath while at work. On exam patient is awake, A+Ox3, VS WNL, afebrile, normal neurological exam without focal deficits, physical exam findings as above. Given reported symptoms and physical exam findings, initial differential includes but is not limited to PE, pneumonia, viral illness, flu, RSV, myocarditis, pericarditis, anemia, electrolyte abnormality. Labs notable for no leukocytosis, no anemia, negative d-dimer, negative troponin and BNP, normal T4. PO potassium ordered. X-ray chest notable for no evidence of pneumonia, pneumothorax, pneumomediastinum. My interpretation is in agreement with the radiologist's interpretation. Results discussed with patient and father and all questions answered. Will provide patient with an incentive spirometer. Will refer to [employer] for clearance to return to full duty at work. At this time, do not feel patient can return to full duty based on symptoms. Advised patient to ensure adequate fluid intake, adequate rest. Follow up with primary care provider. Return precautions discussed at bedside. Patient and father verbalized understanding of and agreement with plan. Differential Diagnosis Differential Diagnoses: The differential diagnosis associated with the presentation includes As per [facility] Admission/Observation Consideration of admission/observation: Escalation of care including admission/observation considered Patient would have been admitted to the hospital had their work up had any findings where hospital admission was appropriate and their clinical presentation warranted hospital admission. Lab Data [facility] Lab Attestation statement: I reviewed the patient's lab results. As per [facility] 03/02/24 15:17 03/02/24 15:16 Labs: Lab Results 03/02/24 03/02/24 03/02/24 Range/Units 15:16 15:17 15:24 WBC 9.8 (4.8-10.8) X10*3/uL RBC 4.49 (4.20-5.50) X10*6/uL Hgb 12.9 (12.0-16.0) g/dl Hct 37.7 (37.0-47.0) % MCV 84.0 (80.0-98.0) fL MCH 28.7 (27.0-33.0) pg MCHC 34.2 (31.0-35.0) g/dl RDW 12.0 (11.0-16.0) % Plt Count 280 (160-400) X10*3/uL MPV 10.4 (9.4-12.3) fL Immature Gran % (Auto) 0.3 (0.0-0.4) % Neut % (Auto) 58.6 (45-73) % Lymph % (Auto) 33.7 (20-40) % Liberty % (Auto) 6.6 (2-11) % Eos % (Auto) 0.5 (0-4) % Baso % (Auto) 0.3 (0-2) % Lymph # (Auto) 3.3 (1.2-4.9) X10*3/uL Liberty # (Auto) 0.6 (0.1-1.2) X10*3/uL Eos # (Auto) 0.1 (0.0-0.4) X10*3/uL Baso # (Auto) 0.0 (0.0-0.2) X10*3/uL Abs Immat Gran (auto) 0.03 (0.00-0.03) X10*3/uL Absolute Neuts (auto) 5.7 (2.0-8.3) x10*3/uL Absolute Nucleated RBC 0.000 (0.0-0.012) X10*3/uL Nucleated RBC % (auto) 0.0 (0.0-0.2) /100WBC PT 12.8 H (10.9-12.4) SEC INR 1.1 (0.9-1.1) D-Dimer High Sensitivty < 150 NG/ML Sodium 140 (135-145) mmol/L Potassium 3.0 L D (3.3-5.1) mmol/L Chloride 113 H (96-108) mmol/L Carbon Dioxide 14 L (22-29) mmol/L Anion Gap 16 (12-20) BUN 13 (9-16) mg/dL Creatinine 0.88 (0.5-1.4) mg/dL Estim Creat Clear Calc 109.7 Estimated GFR > 60 POC Glucose 79 (60-115) mg/dL Random Glucose 80 (60-115) mg/dL Calcium 9.4 (8.4-10.2) mg/dL Total Bilirubin 0.7 (0.0-1.0) mg/dL AST 17 (5-31) U/L ALT 10 (0-31) U/L Alkaline Phosphatase 82 (39-117) U/L Troponin I High Sens < 2.7 (<3.5-17.0) ng/L B-Natriuretic Peptide < 10 (<100) pg/mL Total Protein 8.0 (6.5-8.0) g/dL Albumin 4.6 (3.5-5.0) g/dL Lipase 22 (8-78) U/L TSH 0.24 L (0.32-4.0) uIU/mL Free T4 1.51 (0.71-1.85) ng/dL Beta HCG, Quant < 2 mIU/mL Influenza Type A (PCR) NEGATIVE (Negative) Influenza Type B (PCR) NEGATIVE (Negative) RSV RNA Qual (PCR) NEGATIVE (Negative) SARS-CoV-2 RNA (RT-PCR) NEGATIVE (Negative) Independent Interpretation I performed an independent interpretation of an: Plain X-Ray Interpretation: No evidence of pneumonia, pneumothorax, pneumomediastinum on chest x-ray Radiology Impression Discussion of test interpretation with radiology: I have reviewed the radiologist's reading. Radiologist Impression: Findings: No consolidation or effusion. Normal size heart. No acute fracture. IMPRESSION: 1. No acute findings. Independent Historian Clinical information obtained from an independent historian. History obtained from or confirmed by: Parent External Record Review External record reviewed: Inpatient record, Office record and Outpatient record Discharge Plan Discharge Clinical Impression: Shortness of breath Patient Disposition: Home, Self-Care Instructions: Shortness of Breath (ED), COVID-19 (Coronavirus Disease 2019) (ED) Additional Instructions: You were evaluated in the emergency department today for shortness of breath and elevated heart rate. Your symptoms are likely due to recent COVID infection. Your labs were reassuring. Your chest x-ray did not show evidence of pneumonia. We are referring you to the work connection for clearance to return to full duty at work. Call them to schedule an appointment. Follow-up with your primary care provider within 1 week. Return to the emergency department if you develop worsening chest pain, shortness of breath or difficulty breathing, fevers, or any other concerning symptoms. [employer] [address] [place] [address] Prescriptions: No Action ondansetron 4 mg tablet,disintegrating 4 mg PO Q6H PRN (Reason: nausea and vomiting) Qty: 20 0RF clonidine HCl 0.1 mg tablet 0.1 mg PO Q8H PRN (Reason: anxiety) duloxetine 20 mg capsule,delayed release(DR/EC) 20 mg PO BEDTIME cstxkubznm-gcjknlhadswmk-ekuk [Fioricet] 50-300-40 mg capsule 1 cap PO Q4-6H PRN (Reason: pain) Qty: 15 0RF meclizine 25 mg tablet 25 mg PO TID PRN (Reason: dizziness) Qty: 20 0RF Motegrity 2 mg tablet 2 mg PO BEDTIME dexlansoprazole 60 mg capsule,biphase delayed releas 60 mg PO BEDTIME medroxyprogesterone 150 mg/mL suspension 150 mg IM [id number] Rx Instructions: due 08-13-23 budesonide-formoterol [Symbicort] 80-4.5 mcg/actuation HFA aerosol inhaler 2 puff inhalation Q12H Stand Alone Forms: Work/School Release Print Language: Frisian
--- NOTE | 2024-03-02 14:55 | ECG_ITS ---
Test Reason : CHEST PAIN Blood Pressure : / mmHG Vent. Rate : 092 BPM Atrial Rate : 092 BPM P-R Int : 136 ms QRS Dur : 086 ms QT Int : 382 ms P-R-T Axes : 076 063 006 degrees QTc Int : 472 ms Normal sinus rhythm T wave abnormality, consider inferior ischemia Abnormal ECG When compared with ECG of 06-AUG-2023 01:00, T wave inversion now evident in Inferior leads Nonspecific T wave abnormality now evident in Anterior leads Referred By: Derrick Smalls Electronically Signed By:DARREN ZARAGOZA MD
[2024-03-02 15:23] LABS: MANUAL DIFF FLAG NO
[2024-03-02 15:24] LABS: Basophils Percent Auto 0.3 % (0-2); Eosinophils Absolute Auto 0.1 X10*3/uL (0.0-0.4); Eosinophils Percent Auto 0.5 % (0-4); Hematocrit 37.7 % (37.0-47.0); Hemoglobin 12.9 g/dl (12.0-16.0); Imm Gran Abs Auto 0.03 X10*3/uL (0.00-0.03); Imm Gran Pct Auto 0.3 % (0.0-0.4); Lymphocytes Absolute Auto 3.3 X10*3/uL (1.2-4.9); Lymphocytes Percent Auto 33.7 % (20-40); Mean Corpuscular HGB Conc 34.2 g/dl (31.0-35.0); Mean Corpuscular Hemoglobin 28.7 pg (27.0-33.0); Mean Platelet Volume 10.4 fL (9.4-12.3); Monocytes Absolute Auto 0.6 X10*3/uL (0.1-1.2); Monocytes Percent Auto 6.6 % (2-11); Neutrophils Absolute Auto 5.7 x10*3/uL (2.0-8.3); Neutrophils Percent Auto 58.6 % (45-73); Platelet Count 280 X10*3/uL (160-400); Red Blood Count 4.49 X10*6/uL (4.20-5.50); White Blood Count 9.8 X10*3/uL (4.8-10.8)
[2024-03-02 15:28] LABS: Glucose, Whole Blood 79 mg/dL (60-115)
--- NOTE | 2024-03-02 15:28 | PC.NURSE ---
tachipnic in EKG chair for tech. Pt is calm, LS CTA, speaking full sentences. SKin PWD. States that SOB preceded CP.
[2024-03-02 15:30] LABS: INTERNATIONAL NORM RATIO 1.1 (0.9-1.1); Prothrombin Time 12.8 SEC (10.9-12.4)
[2024-03-02 15:47] LABS: B Type Natriuretic Peptide < 10 pg/mL (<100)
[2024-03-02 15:49] LABS: Alanine Aminotransferase 10 U/L (0-31); Albumin Level 4.6 g/dL (3.5-5.0); Anion Gap 16 (12-20); Aspartate Amino Transferase 17 U/L (5-31); Bilirubin Total 0.7 mg/dL (0.0-1.0); Blood Urea Nitrogen 13 mg/dL (9-16); Calcium 9.4 mg/dL (8.4-10.2); Carbon Dioxide 14 mmol/L (22-29); Chloride 113 mmol/L (96-108); Creatinine Clr Calc Pharmacy 109.7; Estimated Glomerular Filt Rate > 60; Glucose Random 80 mg/dL (60-115); Lipase 22 U/L (8-78); Sodium 140 mmol/L (135-145)
[2024-03-02 15:49] LABS: HCG Quantitative < 2 mIU/mL
[2024-03-02 15:59] LABS: Influenza A PCR NEGATIVE (Negative); Influenza B PCR NEGATIVE (Negative); Resp Syncy Virus RNA Qual PCR NEGATIVE (Negative); SARS COV2 PCR INHOUSE NEGATIVE (Negative)
[2024-03-02 16:01] LABS: Troponin-I High Sensitivity < 2.7 ng/L (<3.5-17.0)
[2024-03-02 16:03] LABS: TSH reflex Free T4 0.24 uIU/mL (0.32-4.0)
[2024-03-02 16:10] LABS: Alkaline Phosphatase 82 U/L (39-117)
[2024-03-02 16:56] LABS: D Dimer High Sensitivity < 150 NG/ML
[2024-03-02] MEDS: Potassium Chloride Packet 20 MEQ PACKET 40 MEQ PO (17:17)
--- NOTE | 2024-03-02 17:30 | PC.NURSE ---
ambulatory to [facility] w/o obvious SOB or tachipnea
[2024-03-02 17:53] LABS: Free T4 (Free Thyroxine) 1.51 ng/dL (0.71-1.85)
[2024-03-02 18:21] VITALS: BP 116/70; PULSE 87; RESP 18; TEMP 36.4; O2SAT 100
[2024-03-02 19:02] VITALS: BP 116/70; PULSE 87; RESP 18; TEMP 36.4; O2SAT 100
== END 2024-03-02 19:04 | disposition home or self-care (01) ==
PROVIDERS: Physician Assistant; Registered Nurse Emergency; Emergency Provider Internal Medicine; PCP Pediatrics
DX: R06.02 Shortness of breath (principal); R00.2 Palpitations; Z03.818 Encounter for observation for suspected exposure to other biological agents ruled out; J45.909 Unspecified asthma, uncomplicated; D68.51 Activated protein C resistance; Z86.16 Personal history of COVID-19; Z85.850 Personal history of malignant neoplasm of thyroid; Z92.3 Personal history of irradiation; Z79.899 Other long term (current) drug therapy
CPT/HCPCS: 0241U; 36415; 71046; 80053; 82947; 83690; 83880; 84439; 84443; 84484; 84702; 85025; 85379; 85610; 93005; 99283

== ENCOUNTER → 2024-03-02 14:55 | Outpatient (BNV) | payer OTHER, SELFPAY | PROVIDERS: Emergency Provider Internal Medicine; PCP Pediatrics; Visit Provider Internal Medicine Cardiovascular Disease | DX: R07.9 Chest pain, unspecified (principal); R94.31 Abnormal electrocardiogram [ECG] [EKG] | CPT/HCPCS: 93010 ==

== ENCOUNTER → 2024-03-02 17:01 | Outpatient (BNV) | payer OTHER, SELFPAY | PROVIDERS: Emergency Provider Internal Medicine; PCP Pediatrics; Visit Provider Specialist | DX: R06.02 Shortness of breath (principal); R07.9 Chest pain, unspecified | CPT/HCPCS: 71046 ==

== ENCOUNTER 2024-03-14 09:32 | Outpatient (AMB) | payer OTHER, SELFPAY ==
[2024-03-14 09:36] VITALS: BP 90/64; PULSE 105; BMI 26.4
--- NOTE | 2024-03-14 09:36 | A.OFFVIS_ITS ---
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: No Accompanied by: Mother Allergies prochlorperazine [From Compazine] Allergy (Verified 03/02/24 14:35) Unknown codeine Adverse Reaction (Verified 03/02/24 14:35) Vomiting Medication List - Last Reconciled 03/14/24 by Luis Amor MD budesonide-formoterol 80-4.5 mcg/actuation (Symbicort) 2 puffs inhalation Q12H dexlansoprazole 60 mg PO BEDTIME duloxetine 20 mg PO BEDTIME levothyroxine 125 mcg PO DAILY medroxyprogesterone 150 mg IM [id number] ondansetron 4 mg PO Q6H PRN prucalopride (Motegrity) 2 mg PO BEDTIME topiramate 25 mg PO DAILY HPI Comments Details: Laura is here for consultation regarding tachycardia/shortness of breath. She has been previously seen at [facility]. Post consult notes were reviewed. Essentially, history of COVID infections in 2021 and 2022. Most recently last month. It seems that in the past there was question of POTS syndrome but she had a negative tilt-table test. It was thought that she probably had inappropriate sinus tachycardia. Many other comorbidities including factor 5 Leiden, asthma, history of intussusception as a child requiring bowel surgery, endometriosis extra. Last year she apparently got diagnosed with thyroid cancer and had to have surgery for the same. Subsequently, got radiation as well. Couple of weeks ago, she had COVID infection. Following this, she states that she has not been feeling good. She feels short of breath even walking short distances. She also feels that her heart rate is going too fast and she gets palpitations. Hence she is concerned. Based on previous cardiac workup, it does not seem that she actually has any structural cardiac issues. As mentioned above, thought to have inappropriate sinus tachycardia. [facility] Medical History (Updated 03/14/24 @ 11:27 by Luis Amor MD) History of thyroid cancer Factor 5 Leiden mutation, heterozygous Asthma History of small bowel obstruction IBS (irritable bowel syndrome) GERD (gastroesophageal reflux disease) Depression Anxiety Endometriosis Surgical History History of thyroidectomy, total History of lysis of adhesions History of exploratory laparotomy History of laparoscopy History of resection of small bowel History of colonoscopy History of esophagogastroduodenoscopy (EGD) Family History Maternal Uncle Gallbladder cancer Mother Gallbladder disease Maternal Grandmother Gallbladder disease Social History Household Members: Family Housing: House Do you presently have visiting nurse or other home services: No Alcohol intake: current Alcohol intake frequency: holidays/special occasions only Patient Tobacco Use Status: Never used Tobacco service: No Review of Systems Const Denies chills, Denies daytime sleepiness, Denies fatigue, Denies fever(s), Denies poor appetite, Denies snoring, Denies stops breathing during sleep, Denies weakness, Denies weight gain and Denies weight loss Eyes Denies loss of vision ENT Denies dizziness and Denies hearing loss Card Denies chest pain, Denies irregular heart rhythm, Denies claudication, Denies leg edema, Denies lightheadedness, Reports palpitations, Reports dyspnea on exertion and Denies orthopnea Resp Denies cough, Denies excessive phlegm production, Reports dyspnea on exertion, Denies snoring and Denies wheezing GI Denies abdominal pain, Denies hematochezia, Denies change in bowel habits, Denies nausea and Denies vomiting Denies urinary frequency and Denies dysuria Musc Denies arthralgias, Denies muscle weakness, Denies numbness and Denies other Skin/Breast Denies nail changes and Denies rash Neuro Denies Abnormal speech present, Denies dizziness, Denies loss of vision, Denies memory loss, Denies numbness and Denies weakness Psych Denies depression and Denies memory loss Endo Denies fatigue and Reports palpitations Leroy/Lymph Denies easy bruising Aller/Immun Denies wheezing Physical Exam Vital Signs: Last Vital Signs Pulse 105 H 03/14/24 09:36 BP 90/64 03/14/24 09:36 BMI result Body Mass Index 26.4 Const General: comfortable and no acute distress Orientation/consciousness: patient oriented x3 HEENT Other: Unremarkable Head: Yes normal to inspection Neck Neck: Yes normal visual inspection Chest Chest palpation & inspection: normal inspection of the chest Resp Auscultation: clear to auscultation bilaterally Cardio Palpation: normal PMI Heart sounds: S1 normal heart sound present, S2 normal heart sound present, no gallops, no murmurs and no rubs GI Palpation (GI): Soft to palpation Back/Spine/Pelvis Other: unremarkable Skin General skin exam: no rashes or lesions noted Neuro General: patient oriented x3 Speech: No Abnormal speech present Extrem General: Yes normal to inspection Psych Mental Status: mental status grossly normal Assessment & Plan Assessment & Plan (1) Heart palpitations: Code(s): R00.2 - Palpitations Category: Medical (2) Shortness of breath: Code(s): R06.02 - Shortness of breath Category: Medical (3) Post covid-19 condition, unspecified: Code(s): U09.9 - Post COVID-19 condition, unspecified Category: Medical Plan Recent EKG with underlying sinus rhythm at 92/Min; inferior and anterolateral ST-T changes. Likely nonspecific. Could be electrolyte related as the patient was hypokalemic at that time. EKG prior to that within normal limits. [facility] echocardiogram from 2022 with LVEF of 55-65%; no wall motion abnormalities and otherwise unremarkable. Cardiac BNP well within normal range. High sensitivity troponin x2 done at different times are also normal. In ETT from [facility] 2021, she clearly had a tachycardic response and reached as much as 199/Min. Even the baseline heart rate at that time was 104/Min. Overall, baseline inappropriate sinus tachycardia, recent COVID, but also m ultiple prior episodes of COVID, shortness of breath/palpitations. With regard to the concern for tachycardia, most likely it is chronic as the ETT clearly shows baseline sinus tachycardia as well as augmented response to activity. This could be worse because of the recent COVID from few days back. She could potentially try some low-dose beta-blockers as necessary for symptoms but she also has low blood pressure and hence could get dizzy. Any case, sending her a script for a small dose that she can try as needed. Obtain Holter monitor. With regard to shortness of breath again likely related to recent COVID as well as possibly some deconditioning. Recent chest x-ray is unremarkable. Cardiac BNP is well within normal limits. We will check an echocardiogram for cardiac function. Discussed with mother. Orders: Orders CA echo transthoracic complete Today R06.02 - Shortness of breath ECG 3 day holter monitor Today R00.2 - Palpitations Medications: New metoprolol tartrate 25 mg PO BID PRN 30 tabs 5RF palpitations Coding Level of Care Code New Pt Level 4 (62155) Diagnoses Heart palpitations R00.2 Shortness of breath R06.02 Post covid-19 condition, unspecified U09.9
--- OUTSIDE RECORDS SUMMARY | 2024-03-14 10:19 | XMS_ITS | Patient Health Record ---
Author Organization [facility] Address [address] [place] [address] Care Team Providers Care Manager Hvac Name Role Phone Juanita Adhikari Primary Care Provider KIRSTEN Stover Unavailable [phone] Allergies Allergen (clinical drug ingredient) Drug/Non Drug [...] Date Coverage End Date [employer] [address] [place] [address] [id number] Laura Banegas Self - patient is the [...]
--- OUTSIDE RECORDS SUMMARY | 2024-03-14 10:19 | XMS_ITS ---
Author Organization [facility] Address [address] [address] Care Team Providers Care Scrap Iron Cutter Name Role Phone OnofreJuanita Primary Care Provider KATIE Stover Unavailable [phone] Allergies Allergen (clinical drug ingredient) Drug/Non Drug [...] A Encounters Encounter Location Date Provider Diagnosis [facility] [address] [address] 12/05/2022 KATIE CONNOLLY Ingrown toenail of both feet L60.0 ; Pain around toenail, right foot M79.674 and Pain around toenail, left foot M79.675 Assessments Encounter Date Diagnosis (ICD Code) Assessment Notes Treatment Notes Treatment Clinical Notes Section Notes 12/05/2022 Ingrown toenail of both feet (ICD-10 - L60.0) Patient was seen and examined, history reviewed. I spent approximately 30 minutes [id number]-[id number] with the patient. Discussed treatment options for [...] history reviewed. I spent approximately 30 minutes jncn-po-nzrp with the patient. 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 * Medications:?TakingDepo-Prov era 150 MG/ML Suspension 1 [...] nail dorsally, medially, and plantarly. Using an maltese anvil nail splitter, the medial border was [...] nail dorsally, medially, and plantarly. Using an maltese anvil nail splitter, the medial border was cut. Straight hemostats were used to remove the border of the nail. The area was then inspected and no other nail remnants were seen. The area was cleansed, all bleeding was controlled with pressure. A dressing was applied to the toe. Pt tolerated the procedure well. ? * Procedure Codes:?42259 REMOV AL OF NAIL PLATE, Modifiers: T5 57794 REMOVE NAIL PLATE, ADD-ON, Modifiers: TA * Follow Up:?2 Weeks * Billing Information: * Visit Code:? 37570 Office Visit, New Pt., Level 3. Modifiers: 25 * Procedure Codes:? 42626 REMOVAL OF NAIL PLATE. Modifiers: T5 96772 REMOVE NAIL PLATE, ADD-ON. Modifiers: TA * Sign off status: Completed true * Provider:Juancarlos Lee DPM Date:?12/05 Generated for David apple/Brigette/Susannaitting on:?03/14/2024 10:19 AM EST History and Physical Notes * Examination [...]
--- OUTSIDE RECORDS SUMMARY | 2024-03-14 10:19 | XMS_ITS ---
Author Organization [facility] Address [address] [address] Care Team Providers Care Aluminizer Name Role Phone Onofre Juanita Primary Care Provider KIRSTEN Stover Unavailable [phone] REASON FOR VISIT Medical Records Encounters Encounter Location Date Provider Diagnosis [facility] [address] [address] 12/03/2022 KIRSTEN CONNOLLY Plan Of Treatment No Information Progress Notes * Laura BARBERDOB:2000 (22 yo F)Acc No.[id number]:12/03/2022 Patient:?Laura Barber :2000???Age:22 Y???Sex:Female Address:[address] [place] [address] * true * Date:? Generated for David apple/Brigette/eTransmitting on:?03/14/2024 10:19 AM EST
--- OUTSIDE RECORDS SUMMARY | 2024-03-14 10:19 | XMS_ITS ---
Author Organization [facility] Address [address] [address] Care Team Providers Care Construction Grip Name Role Phone OnofreJuanita Primary Care Provider KATIE Stover Unavailable [phone] Allergies Allergen (clinical drug ingredient) Drug/Non Drug [...] 12/19/2022 Encounters Encounter Location Date Provider Diagnosis [facility] [address] [address] 12/19/2022 KATIE CONNOLLY Ingrown toenail of both [...] Notes * Laura BARBERDOB:2000 (22 yo F)Acc No.[id number]:12/19/2022 Progress Notes Patient:?Laura BARBER Provider:?Katie Lee DPShayy :2000???Age:22 Y???Sex:Female D ate:12/19/2022 Address:[address] [place] [phone] Pcp:Juanita Adhikari Subjective: * Chief Complaints: * [...] Social History:?Tobacco: no 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 * Medications:?TakingDepo-Prov era 150 MG/ML Suspension [...] Codes:? * Billing Information: * Visit Code:? 38799 Office Visit, Est Pt., Level 2. * Procedure Codes:? * Sign off status: Completed true * Provider:?Katie Lee DP Date:?12/19 Generated for David apple/Brigette/Juan Diegosmitting on:?03/14/2024 10:19 AM EST History and Physical [...]
--- OUTSIDE RECORDS SUMMARY | 2024-03-14 10:19 | XMS_ITS ---
Continuity of Care Document (CCD) Created on: March 14, 2024 Laura Banegas External Reference #: [id number] : 2000 Sex: Female Author Organization [facility] [address] [place] [address] Phone [phone] Care Team Providers Care Human Resources Project Coordinator Name Role Phone Juanita Adhikari MD Care Team Information Employment Recruiter + [phone] Problems Active Problems Provider Date Endometriosis (clinical) [...] Qnty Indications Order ing Provider Date Levothyroxine Tbczsk239qph Capsules Take 1 tab by mouth thu-thursday; half tab on thursday shantanu Abdi M.D. 11/23/2023 Gquscnyxnf14zw Tablets 1 by mouth every day Bossman Flores MD Medroxyprogesterone Kricxgu806sz/ml Suspension Unknown 0 Bjvyhvmbf6mo Tablets 1 by mouth every day Unknown Clonidine HCL0.1mg Tablets Take 1 Tablet By Mouth Every 8 Hours as Needed For Anxiety Juanita Adhikari MD Nfxyjereclzfodl66wu Capsules DR Hobbs Vital Signs Date Vital [...] - 71 4 10 - 750 5 759 - 7948 6 608 - 58963 7 0414 -[phone] 8 78762 -[phone] 9 01071 -308960 10 32361 -735767 12 65653 -162312 14 96669 - 81916 15 21705 - 21510 16 5453 - 70209 17 7964 - 25163 18 3351 - 74365 Seda ECLIA methodology Medical Devices Description No [...] dx: malignant thyroid neoplasm Clos ed 10/09/[address] [place] [address] (Notes Only) [place] [phone]
== END 2024-03-14 10:09 | disposition home or self-care (01) ==
PROVIDERS: PCP Pediatrics; Visit Provider Internal Medicine
DX: R00.2 Palpitations (principal); R06.02 Shortness of breath; U09.9 Post COVID-19 condition, unspecified
CPT/HCPCS: 99204

== ENCOUNTER → 2024-03-14 09:32 | Outpatient (BNVA) | payer OTHER, SELFPAY | PROVIDERS: PCP Pediatrics; Visit Provider Internal Medicine ==

== ENCOUNTER → 2024-03-21 08:00 | Outpatient (REF) | payer OTHER, SELFPAY ==
--- OUTSIDE RECORDS SUMMARY | 2024-03-21 08:02 | XMS_ITS | Continuity of Care Document ---
Author Organization [facility] [address] [place] [address] Phone [phone] Care Team Providers Care Advertisement Compositor Name Role Phone Juanita Adhikari MD Care Team Information Advertising Dispatch Clerks Supervisor + [phone] Problems Active Problems Provider Date Endometriosis (clinical) [...] Qnty Indications Order ing Provider Date Levothyroxine Ffoylh639kym Capsules Take 1 tab by mouth thu-thursday; half tab on thursday shantanu Abdi M.D. 11/23/2023 Vfcniqjesc69lj Tablets 1 by mouth every day Bossman Flores MD Medroxyprogesterone Anyiynu894iy/ml Suspension Unknown 0 Giuzbvmio8le Tablets 1 by mouth every day Unknown Clonidine HCL0.1mg Tablets Take 1 Tablet By Mouth Every 8 Hours as Needed For Anxiety Juanita Adhikari MD Wcoazghdwhhignr50uc Capsules DR Hobbs Vital Signs Date Vital [...] - 71 4 10 - 750 5 386 - 9075 6 023 - 79886 7 4707 -662636 8 21259 -372691 9 76134 -421198 10 56366 -345057 12 89394 -488722 14 73491 - 76827 15 15963 - 85188 16 3486 - 50837 17 5314 - 31000 18 2290 - 00289 Seda ECLIA methodology Medical Devices Description No [...] am - MUSTAPHA Macias at Main Office 10/30/2023 - MUSTAPHA Macias* C73 Malignant neoplasm of thyroid gland Functional Status Description No Information Available Mental Status Description No Information Available Referrals Refer to Reason for Referral Status Appt Berto Bragg M.D. dx: malignant thyroid neoplasm Clos ed 10/09/[address] [place] [address] (Notes Only) [place] [phone] [phone]
--- NOTE | 2024-03-21 08:03 | CA_ITS ---
Transthoracic Echocardiogram Patient (Last, First, Middle): Laura Banegas N Gender: Female Date of : 2000 Age: 23 Procedure Date: 03/21/2024 Procedure Type: Transthoracic Echocardiogram Location: OP Height: 172.72 cm Weight: 78.47 kg BSA: 1.92 m2 Heart Rate: 85 bpm BP: 102 / 62 mmHg Hemodialysis Patient Care Specialist: SB Referring MD: Luis Amor MD Operations Officer Afloat: Avery Goff MD Symptoms: R06.02 - Shortness of breath Study Quality: Adequate ECG Rhythm: Sinus Conclusions: - Normal study Findings Left Ventricle Normal left ventricular size, thickness, and systolic function. The visually estimated ejection fraction is between 55-60%. Diastolic function is normal for age. Right Ventricle Normal right ventricular cavity size and systolic function. Atria Both atria are normal in size. There is no evidence of interatrial shunt. Aortic Valve Normal aortic valve structure and function. There is no aortic valve stenosis. There is no aortic valve regurgitation. Mitral Valve Normal mitral valve structure and function. There is trace mitral valve regurgitation. There is no mitral valve stenosis. Pulmonic Valve The pulmonic valve is likely normal. There is trace pulmonic valve regurgitation. Tricuspid Valve Normal tricuspid valve structure. There is trace tricuspid valve regurgitation. The right ventricular systolic pressure is normal. The right ventricular systolic pressure is 16 mmHg. Normal right atrial pressure. There is no evidence of pulmonary hypertension. Great Vessels All visible segments of the aorta are normal in size. The pulmonary artery was not well visualized. Venous The inferior vena cava is normal in size and collapses greater than 50% with inspiration. Pericardium/Pleural There is no evidence of pericardial effusion. Prior Study Comparison No prior study available for comparison. Measurements 2D Linear Measurements IVSd: 0.95 0.6-0.9/0.6-1.0 cm LVIDd: 4.17 3.9-5.3/4.2-5.9 cm LVIDd Index: 2.17 2.4-3.2/2.2-3.1 cm/m2 LVIDs: 2.71 2.0-3.6 cm LVPWd: 0.80 0.7-1.1 cm LA Diam: 2.80 2.7-3.8/3.0-4.0 cm LAIDs Index: 1.46 1.5-2.3 cm/m2 LV Mass: 140.47 67-162/88-224 g LV Mass Index: 73.16 43-95/49-115 g/m2 LVOT Diam: 2.10 3.0+(-)1.3 cm 2D Systolic Function EF 4C: 57.90 >55% EF 2C: 62.70 >55% EF BiP: 59.50 >55% Mitral Valve MV Pk E: 0.70 MV PK A: 0.49 MV Decel Time: 171.00 E/A: 1.40 E'Lateral: 13.90 E'Medial: 11.40 E/E' Med: 6.20 E/E' Lat: 5.10 PHT: 50.00 MVA PHT: 4.40 Decel [place]: 4.10 Aortic Valve AoV Pk Pravin: 1.06 AoV Pk Grad: 4.00 CRISTELA: 3.30 LVOT LVOT Pk Pravin: 0.96 LVOT Mn Pravin: 0.72 LVOT VTI: 0.21 LVOT Pk Grad: 4.00 LVOT Mn Grad: 2.00 LVOT Diam: 2.10 LVOT Area: 3.46 Diastolic Function MV Pk E: 0.70 MV Pk A: 0.49 E/A: 1.40 E'Medial: 11.40 E/E' Med: 6.20 E' Laterial: 13.90 E/E' Lat: 5.10 Right Ventricle TAPSE (mm): 19.40 TVS' Pravin: 10.30 Tricuspid Valve TR Pk Pravin: 1.83 TR Pk Grad: 13.00 RA Press: 3.00 RVSP: 16.00 Great Vessels Aorta Sinus of Valsalva: 2.50 2.0-3.5 cm Ao Asc: 2.20 2.1-3.4 cm Ao Arch: 1.90 Ao Desc: 1.60 Pulmonary Veins Pulm Vein S/D 0.80 Pulmonary Valve PV Pk Pravin: 0.85 Peak PV Grad: 3.00 Updated in Other Vendor System with Status of Final Avery Goff MD electronically signed on 03/21/2024 4:40:59 PM with status of Final
== END ==
LOC: HO.CARD 08:00
PROVIDERS: PCP Internal Medicine; Visit Provider Internal Medicine
DX: R06.02 Shortness of breath (principal); R00.2 Palpitations
CPT/HCPCS: 93242; 93306

== ENCOUNTER → 2024-03-21 08:03 | Outpatient (BNV) | payer OTHER, SELFPAY | PROVIDERS: PCP Internal Medicine; Visit Provider Internal Medicine Cardiovascular Disease | DX: R06.02 Shortness of breath (principal) | CPT/HCPCS: 93306 ==

== ENCOUNTER 2024-05-10 12:58 | Outpatient (AMB) | payer OTHER, SELFPAY ==
--- NOTE | 2024-05-10 13:01 | MHC.OFFVIS ---
Vital Signs 05/10/24 13:02 Height 5 ft 8 in Weight 178 lb 9.191 oz BMI 27.1 BP 90/64 Blood Pressure Location Lt brachial Pulse 122 H Pulse Source Pulse Oximeter Intake Visit Reasons: F/U Intake Note: F/U pt states that there has been no improvements since her last visit. Limiting her ADL's Bit Grinder Required: No Accompanied by: Mother Allergies prochlorperazine [From Compazine] Allergy (Verified 03/02/24 14:35) Unknown codeine Adverse Reaction (Verified 03/02/24 14:35) Vomiting Medication List - Last Reconciled 05/10/24 by Clay Guzman NP budesonide-formoterol 80-4.5 mcg/actuation (Symbicort) 2 puffs inhalation Q12H dexlansoprazole 60 mg PO BEDTIME duloxetine 20 mg PO BEDTIME levothyroxine 125 mcg PO DAILY medroxyprogesterone 150 mg IM [id number] metoprolol tartrate 12.5 mg (1/2 x 25 mg) PO BID midodrine 5 mg (2 x 2.5 mg) PO TID ondansetron 4 mg PO Q6H PRN prucalopride (Motegrity) 2 mg PO BEDTIME topiramate 50 mg PO DAILY HPI Comments Details: This is a 23-year-old female patient presenting for a follow-up visit, accompanied by her mother. Patient has notable medical history of asthma, factor 5 laden, history of thyroid cancer treated with surgical resection and radiation, and multiple episodes of COVID-19 infections, the most recent being 02/19/2024. Since that infection, she reports ongoing symptoms, including palpitations, shortness or breath, dizziness, and episodes of a her racing heart rate. These episodes triggered by minimal exertion such as carrying a laundry basket or bending down to feet are CAD. The patient notes that these issues have significantly impacted her ability to work and has not been going into work. She was previously evaluated for these symptoms, undergoing an echocardiogram and Holter monitoring. The patient continues to have these symptoms now and states that she has a family history of POTS and believes that her prior tilt-table test conducted 4 years ago, was borderline at that time as her symptoms were not this severe. Regarding her symptoms, the patient reports that her resting heart rate typically ranges in the 90s but with minimal exertion her heart rate increases into the 170s. She was previously prescribed metoprolol 25 mg as needed for suspected inappropriate sinus tachycardia. However, due to her soft blood pressure and positional and activity-related nature of her symptoms, she has not been consistently using the medication. The patient notes that she has been regularly following with endocrinology for management of her thyroid levels. [facility] Medical History History of thyroid cancer Factor 5 Leiden mutation, heterozygous Asthma History of small bowel obstruction IBS (irritable bowel syndrome) GERD (gastroesophageal reflux disease) Depression Anxiety Endometriosis Surgical History History of thyroidectomy, total History of lysis of adhesions History of exploratory laparotomy History of laparoscopy History of resection of small bowel History of colonoscopy History of esophagogastroduodenoscopy (EGD) Family History Maternal Uncle Gallbladder cancer Mother Gallbladder disease Maternal Grandmother Gallbladder disease Social History Household Members: Family Housing: House Do you presently have visiting nurse or other home services: No Alcohol intake: current Alcohol intake frequency: holidays/special occasions only Patient Tobacco Use Status: Never used Tobacco service: No Review of Systems Const Denies chills, Denies fatigue, Denies fever(s), Denies weight gain and Denies weight loss ENT Denies dizziness Card Denies chest pain, Reports irregular heart rhythm, Denies leg edema, Denies lightheadedness, Denies palpitations, Reports dyspnea on exertion, Denies orthopnea and Denies other Resp Denies cough and Reports dyspnea on exertion GI Denies hematochezia and Denies change in stool character Musc Denies abnormal gait, Denies muscle weakness, Denies numbness, Denies radiating pain into limb and Denies tingling Neuro Denies abnormal gait, Denies dizziness, Denies numbness and Denies tingling Endo Denies fatigue and Denies palpitations Physical Exam Vital Signs: Last Vital Signs Pulse 122 H 05/10/24 13:02 BP 90/64 05/10/24 13:02 BMI result Body Mass Index 27.1 Const General: cooperative, healthy appearing, comfortable and no acute distress Orientation/consciousness: patient oriented x3 HEENT Head: Yes normal to inspection Neck Neck: Yes normal visual inspection, Yes trachea midline and Yes supple Chest Chest palpation & inspection: normal inspection of the chest Resp Effort & Inspection: normal respiratory effort Auscultation: clear to auscultation bilaterally, no crackles, no rales, no rhonchi and no wheezes Cardio Jugular venous distension: no JVD Palpation: normal PMI Rate: tachycardic Rhythm: regular rhythm Heart sounds: S1 normal heart sound present, S2 normal heart sound present, no click, no gallops, no murmurs and no rubs Peripheral pulses: Peripheral pulses 2+ throughout GI Inspection: Yes normal to inspection Palpation (GI): Soft to palpation Auscultation: normal bowel sounds Skin General skin exam: no rashes or lesions noted Neuro General: patient oriented x3 Extrem General: Yes normal to inspection, No no pedal edema and No calf tenderness Psych Appearance: grossly normal Mental Status: mental status grossly normal Speech and movement: Normal speech and movement present Assessment & Plan Assessment & Plan (1) Heart palpitations: Code(s): R00.2 - Palpitations Category: Medical (2) Shortness of breath: Code(s): R06.02 - Shortness of breath Category: Medical (3) Dizziness: Code(s): R42 - Dizziness and giddiness Category: Medical Plan 03/21/2024-Holter study showed sinus rhythm with the average heart rate of 81 beats per minute, patient's symptoms associated with sinus tachycardia. 03/21/2024-echo study showed normal EF between 55-60%, with no valvular or wall motion abnormalities. Patient's heart rate today in the 120s, and her blood pressure continues to be on the low-normal side. Reports of the ongoing symptoms of palpitations, shortness or breath, dizziness, and racing heart rate with minimal exertion. Patient states her symptoms are significantly affecting her daily activities and quality of life. Given the clinical picture and her family history of POTS, we will repeat a tilt-table for to further assess for POTS. If the test is positive, the patient will be referred to a POTS specialist for further management. For now, we will start her on metoprolol 12.5 mg twice daily. We will also start midodrine to help with the blood pressures and dizziness. Patient is agreeable on these changes. Advised patient to regularly monitor her blood pressures at home. Advised increasing fluid intake and salt consumption in the diet support blood pressure regulation. Recommended compression stockings and garments to help elevated symptoms of orthostatic intolerance. Advised avoiding hot water showers to prevent exacerbation of symptoms. Recommended changing positions slowly. We will follow-up after tilt-table test. In the interim, patient will call us with any concerns or change in symptoms. This note was generated using voice recognition software. While every effort has been made to ensure accuracy and proper typing secretary, there may be occasional errors that could affect the content or meaning of the described symptoms. Orders: Orders ECG Tilt Table Test Today R42 - Dizziness and giddiness Medications: New midodrine do not give last dose of day after 6PM or within 4 hrs of bedtime 5 mg (2 x 2.5 mg) PO TID 90 tabs 0RF Changed From metoprolol tartrate 25 mg PO BID PRN 30 tabs 5RF palpitations To metoprolol tartrate 12.5 mg (1/2 x 25 mg) PO BID 30 tabs 5RF palpitations Coding Level of Care Code Est Pt Level 4 (03665) Complex EM visit Add On G2211 Diagnoses Heart palpitations R00.2 Shortness of breath R06.02 Dizziness R42 Time Spent (min) 34 Comment Time spent in reviewing the chart, test results, assessment, counseling and documentation.
[2024-05-10 13:02] VITALS: BP 90/64; PULSE 122; BMI 27.1
--- OUTSIDE RECORDS SUMMARY | 2024-05-10 15:37 | XMS_ITS ---
Author Organization [facility] Address [address] [address] Care Team Providers Care Neon Installer Name Role Phone OnofreJuanita Primary Care Provider KATIE Stover Unavailable [phone] Allergies Allergen (clinical drug ingredient) Drug/Non Drug [...] Orally Once a day Active Vital Signs Temperature 97.1 degrees Fahrenheit 12/20/19 23 Blood pressure systolic 100 mm Hg 12/20/19 23 Blood pressure diastolic 62 mm Hg 023 Heart Rate 81 /min 12/19/2022 Respiratory Rate 14 /min 12/19/2022 Weight 158.1 lbs 12/19/2022 BMI 24.04 kg/m2 12/19/2022 Encounters Encounter Location Date Provider Diagnosis [facility] [address] [address] 12/19/2022 KATIE CONNOLLY Ingrown toenail of both [...] Notes * Laura BARBERDOB:2000 (22 yo F)Acc No.[id number]:12/19/2022 Progress Notes Patient:?Laura BARBER Provider:?Katie Lee DPShayy :2000???Age:22 Y???Sex:Female D ate:12/19/2022 Address:[address] [place] [address] Pcp:Juanita Adhikari Subjective: * Chief Complaints: * [...] Social History:?Tobacco: no 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 * Medications:?TakingDepo-Prov era 150 MG/ML Suspension [...] Codes:? * Billing Information: * Visit Code:? 93340 Office Visit, Est Pt., Level 2. * Procedure Codes:? * Sign off status: Completed true * Provider:?Katie Lee DP Date:?12/19 Generated for David apple/Brigette/Juan Diegosmitting on:?05/10/2024 03:37 PM EDT History and Physical Notes * Examination Category [...]
--- OUTSIDE RECORDS SUMMARY | 2024-05-10 15:37 | XMS_ITS | Clinical Summary ---
Author Organization [facility] Address [address] [place] [address] Care Team Providers Care Supervisor Composing Room Name Role Phone Juanita Adhikari MD Primary Care Provider [phone] Allergies Active Allergy Reactions Criticality Noted Date Comments Codeine GI Intolerance/Nausea/Vomiting Low 11/07 Prochlorperazine Dyskinesia/Dystonia Medium 11/07/2021 Medications Medication Sig Dispensed Refills Start Date End Date Status oxybutynin (DITROPAN-XL) 10 MG 24 hr tablet Take 10 mg by mouth. 2 Active medroxyPROGESTERon e (DEPO-PROVERA) 150 mg/mL injection 2 Active hyoscyamine (LEVSIN) 0.125 MG tablet Take 0.25 mg by mouth. 2 Active Symbicort 160-4.5 MCG/ACT inhaler Inhale 2 puffs 2 (two) times a day. DIRECTED 2 Active hydrOXYzine pamoate (VISTARIL) 25 MG capsule TAKE 1 CAPSULE BY MOUTH EVERY 8 HOURS NEEDED FOR ANXIETY 2 Active sertraline (ZOLOFT) 100 MG tablet Take 100 mg by mouth daily. 2 Active ondansetron (ZOFRAN-ODT) 4 MG disintegrating tablet 2 Active polyethylene glycol (miraLAx) 17 GM/SCOOP powder See Instructions, 17 Gm By Mouth twice daily . dissolve in water or juice, # 527 Gm, 1 Refills, Maintenance, 03/14/21 10:17:00 EST, REC Powder, [facility]/pharmacy #[id number], Partial fill upon patient request if the prescription is for a schedule II opioid drug... 2 Active Motegrity 1 MG tabletIndications: Colon cancer screening Take 1 tablet (1 mg total) by mouth daily. 90 tablet 3 2 Active Motegrity 2 MG tabletIndications: Constipation, unspecified constipation type TAKE 1 TABLET BY MOUTH EVERY DAY 90 tablet 1 5 Active dexlansoprazole (DEXILANT) 60 MG capsuleIndications :Gastroesophageal reflux disease without esophagitis TAKE 1 CAPSULE BY MOUTH EVERY DAY 90 capsule 1 5 Active Motegrity 2 MG tabletIndications: Constipation, unspecified constipation type TAKE 1 TABLET BY MOUTH EVERY DAY 90 tablet 1 4 04/29/19 25 Discontinued dexlansoprazole (DEXILANT) 60 MG capsuleIndications :Gastroesophageal reflux disease without esophagitis TAKE 1 CAPSULE BY MOUTH EVERY DAY 90 capsule 1 4 04/29/19 25 Discontinued Active Problems Problem Noted Date Diagnosed Date Abdominal pain 12/25/2021 Asthma 12/25/2021 Dysmenorrhea 12/25/2021 Endometriosis 12/25/2021 Factor V Leiden mutation 12/25/2021 Encounters Date Type Department Care Team Description 04/26/2024 [facility] Neurogastroenterology [place] [address] [address] [facility] 1st [place] [phone] Lelo Garsia, SENIOR AIR DIRECTOR Constipation, unspecified constipation type; Gastroesophageal reflux disease without esophagitis from Last 3 Months Social History Tobacco Use Types Packs/Day Years Used Date Smoking Tobacco: Never Smokeless Tobacco: Never Tobacco Cessation:Counseling Given: Not Answered Alcohol Use Standard Drinks/Week Comments Never 0 (1 standard drink = 0.6 oz pur e alcohol) Sex and Gender Information Value Date Recorded Sex Assigned at Female 04/23/2022 2:21 PM EST Gender Identity Female 11/07/2021 9:33 PM EDT Sexual Orientation Bisexual 12/06/2021 11 :33 AM EDT Last Filed Vital Signs Vital Sign Reading Time Taken Comments Blood Pressure - - Pulse - - Temperature - - Respiratory Rate - - Oxygen Saturation - - Inhaled Oxygen Concentration - - Weight 63.5 kg (140 lb) 05/14/2022 1:12 PM EDT Height 170.2 cm (5' 7 ) 05/14/2022 1:12 PM EDT Body Mass Index 21.93 05/14/2022 1:12 PM EDT Plan of Treatment Health Maintenance Due Date Last Done Comments Hepatitis C Virus Screening 2000 HIV Screening 2013 HPV Vaccines (1 - 3-dose series) 10/14/2015 DTaP/Tdap/Td Vaccines (1 - Tdap) 10/14/2019 Hepatitis B Vaccines (1 of 3 - 19+ 3-dose series) 10/14/2019 Pneumococcal Vaccine: Pediat prasad (0-5 Years) and At-Risk Patients (6 to 49 Years) (1 of 2 - PCV) 10/14/2019 Pap Smear (Ages 21-65) 2021 Influenza Vaccine 10/01/2023 COVID-19 Vaccine (3 - 2023- season) 2023, 04/27/2020 Care Teams Supervisor Composing Room Relationship Specialty Start Date End Date Juanita Adhikari MD [address] [place] [address] PCP - General Radiology, Diagnostic 09/25/21
--- OUTSIDE RECORDS SUMMARY | 2024-05-10 15:37 | XMS_ITS | Encounter Summary ---
Author Organization [facility] Address [address] [place] [address] Care Team Providers Care Production Staff Worker Name Role Phone Juanita Adhikari MD Primary Care Provider [phone] Reason for Visit * Reason Comments Other Encounter Details Date Type Department Care Team (Late st Contact Info) Description 07/08/2023 Telephone [facility] Neurogastroenterology [address] [place] [phone] Lelo Garsia, ADVERTISING SUPERVISOR [address] [phone] Other Social History Tobacco Use Types Packs/Day Years Used Date Smoking Tobacco: Never Smokeless Tobacco: Never Alcohol Use Standard Drinks/Week Comments Never 0 (1 standard drink = 0.6 oz pur e alcohol) Sex and Gender Information Value Date Recorded Sex Assigned at Female 04/23/2022 2:21 PM EST Gender Identity Female 11/07/2021 9:33 PM EDT Sexual Orientation Bisexual 12/06/2021 11 :33 AM EDT documented as of this encounter Miscellaneous Notes * Telephone Encounter - Fifi Estrella - 07/08/2023 2:58 PM EDT Patient called stating she sent a message through the portal yesterday regarding prior authorizations regarding Motegrity and Dexilant. Patient is requesting a prior authorization be done on these. documented in this encounter Plan of Treatment Not on file documented as of this encounter Visit Diagnoses Not on filedocumented in this encounter Care Teams Production Staff Worker Relationship Specialty Start Date End Date Juanita Adhikari MD [address] [place] [address] PCP - General Radiology, Diagnostic 09/25/21 documented as of this encounter
--- OUTSIDE RECORDS SUMMARY | 2024-05-10 15:37 | XMS_ITS | Encounter Summary ---
Author Organization [facility] Address [address] [place] [address] Care Team Providers Care Calculus Professor Name Role Phone Juanita Adhikari MD Primary Care Provider [phone] Encounter Details Date Type Department Care Team (Late st Contact Info) Description 05/19/2022 Scanned Document [facility] Neurogastroenterology [place] [address] 1st [place] [phone] Juanita Adhikari MD [address] [place] [address] Social History Tobacco Use Types Packs/Day Years Used Date Smoking Tobacco: Never Smokeless Tobacco: Never Alcohol Use Standard Drinks/Week Comments Never 0 (1 standard drink = 0.6 oz pur e alcohol) Sex and Gender Information Value Date Recorded Sex Assigned at Female 04/23/2022 2:21 PM EST Gender Identity Female 11/07/2021 9:33 PM EDT Sexual Orientation Bisexual 12/06/2021 11 :33 AM EDT COVID-19 Exposure Response Date Recorded In the last 10 days, have yo u been in contact with someone who was confirmed or suspected to have Coronavirus/COVID-19? No / Unsure 05/14/2022 1:11 PM EDT documented as of this encounter Plan of Treatment Not on file documented as of this encounter Visit Diagnoses Not on filedocumented in this encounter Care Teams Calculus Professor Relationship Specialty Start Date End Date Juanita Adhikari MD [address] [place] [address] PCP - General Radiology, Diagnostic 09/25/21 documented as of this encounter
--- OUTSIDE RECORDS SUMMARY | 2024-05-10 15:37 | XMS_ITS ---
Author Organization [facility] Address [address] [address] Care Team Providers Care Vector Control Specialist Name Role Phone Onofre Juanita Primary Care Provider KIRSTEN Stover Unavailable [phone] REASON FOR VISIT Medical Records Encounters Encounter Location Date Provider Diagnosis [facility] [address] [address] 12/03/2022 KIRSTEN CONNOLLY Plan Of Treatment No Information Progress Notes * Laura BARBERDOB:2000 (22 yo F)Acc No.[id number]:12/03/2022 Patient:?Laura Barber :2000???Age:22 Y???Sex:Female Address:[address] [place] [address] * true * Date:? Generated for David apple/Brigette/eTransmitting on:?05/10/2024 03:37 PM EDT
--- OUTSIDE RECORDS SUMMARY | 2024-05-10 15:37 | XMS_ITS | Continuity of Care Document ---
Author Organization [facility] [address] [facility] [address] [place] [address] Phone [phone] Problems Active Problems Provider Date Endometriosis (clinical) [...] Qnty Indications Order ing Provider Date Levothyroxine [id number] Capsules Take 1 tab by mouth thu-thursday 30caps Svetlana Abdi M.D. 11/23/2023 Cdqpznovgh76qh Tablets 1 by mouth every day Bossman Flores MD Medroxyprogesterone Qirasex219ee/ml Suspension Unknown 0 Vdnenymod6md Tablets 1 by mouth every day Unknown Clonidine HCL0.1mg Tablets Take 1 Tablet By Mouth Every 8 Hours as Needed For Anxiety Juanita Adhikari MD Noghmwrlhdexaqz93hi Capsules DR Unknown Vital Signs Date Vital Result Comment 03/21/2024 2:21pm BP Systolic 126 mmHg BP Diastolic 88 mmHg Heart Rate 92 /min Height 68 inches 5'8 Weight 176.00 lb BMI (Body Mass Index) 26.8 kg/m2 Results Test Acquired Date Facility Test Result H/L Range Note TSH Rfx on Abnormal to Free T4 03/29/2024 [facility] TSH RFX On Abnormal To Free T4 0.119 uIU/mL Low 0.450-4. 500 T4,Free (Direct) 1.60 ng/dL 0.82-1.7 7 TSH+Free T4 02/16/2024 [facility] TSH 0.071 uIU/mL Low 0.450-4. 500 T4,Free(Direct) 1.62 ng/dL 0.82-1.7 7 TSH Rfx on Abnormal to Free T4 01/01/2024 [facility] TSH RFX On Abnormal To Free T4 0.055 uIU/mL Low 0.450-4. 500 T4,Free (Direct) 2.17 ng/dL High 0.82-1.7 7 hCG,Beta Subunit, Qnt 11/19/2023 [facility] hCG,Beta Subunit, Qnt <1 mIU/mL 1 Thyroid Peroxidase (Tpo) Ab 11/19/2023 [facility] Thyroid Peroxidase (Tpo) Ab 296 IU/mL High 0-34 TSH 11/09/2023 [facility] TSH 13.900 uIU/mL High 0.450-4. 500 Thyroxine (T4) Free, Direct 11/09/2023 [facility] Thyroxine (T4) Free, Direct 0.39 ng/dL Low 0.82-1.7 7 Triiodothyronine (T3), Free 11/09/2023 [facility] Triiodothyronine (T3), Free 1.2 pg/mL Low 2.0-4.4 Thyroid Peroxidase (Tpo) Ab 09/01/2023 [facility] Thyroid Peroxidase (Tpo) Ab >600 IU/mL High 0-34 1 Female (Non- ) 0 - 5 (Postmenopausal) 0 - 8 Female () Weeks of Gestation 3 6 - 71 4 10 - 750 5 648 - 4492 6 716 - 52748 7 0052 -591128 8 83290 -677654 9 77004 -292063 10 27937 -157634 12 38340 -874781 14 98697 - 18140 15 31763 - 18714 16 9040 - 58061 17 4099 - 63765 18 7678 - 20849 Seda ECLIA methodology Medical Devices Description No Information Available Encounters Type Date Location Provider Dx Diagnosis Office Visit 01/01/2024 10:30a Main Office MUSTAPHA Macias C73 Malignant derek plasm of thyroid gland E89.0 Postprocedural hypot hyroidism Assessments Date Code Description Provider 03/21/2024 C73 Malignant neoplasm of thyroi d gland MUSATPHA Macias 03/21/2024 E89.0 Postprocedural hypothyroidis m MUSTAPHA Macias Plan of Treatment Future Appointment(s):* 07/19/2024 1:00 pm - MUSTAPHA Macias at Main Office 03/21/2024 - MUSTAPHA Macias* C73 Malignant neoplasm of thyroid gland * E89.0 Postprocedural hypothyroidism Functional Status Description No Information Available Mental Status Description No Information Available Referrals Refer to Reason for Referral Status Appt Berto Bragg M.D. dx: malignant thyroid neoplasm Clos ed 10/09/[address] [place] [address] (Notes Only) [place] [phone]
--- OUTSIDE RECORDS SUMMARY | 2024-05-10 15:37 | XMS_ITS | Clinical Summary ---
Author Organization [facility] Address [address] [place] [address] Care Team Providers Care Weight Recorder Name Role Phone Juanita Adhikari MD Primary Care Provider [phone] Social History Tobacco Use Types Packs/Day Years Used Date Smoking Tobacco: Never Assessed Sex and Gender Information Value Date Recorded Sex Assigned at Not on file Gender Identity Not on file Sexual Orientation Not on file Job Start Date Occupation Industry Not on file Not on file Not on file Plan of Treatment Health Maintenance Due Date Last Done Comments Hepatitis B Vaccines (1 of 3 - 3-dose series) 2000 Hepatitis C Screening 2000 COVID-19 Vaccine (#1) 04/15/2001 Depression Screening 2012 Gonorrhea and Chlamydia Screening 2013 Preventative Health Evaluation 2018 DTap / Tdap / Td (1 - Tdap) 10/14/2019 Cervical Cancer Screening (P ap Smear) 2021 Influenza Vaccine (#1) 2023 Pneumococcal Vaccine Aged Out No long er eligible based on patient's age to complete this topic RSV Ped < 20 months Aged Out No longe r eligible based on patient's age to complete this topic Care Teams Weight Recorder Relationship Specialty Start Date End Date Juanita Adhikari MD [address] [facility] [address] [place] [address] PCP - General Pediatrics 12/22/16
--- OUTSIDE RECORDS SUMMARY | 2024-05-10 15:37 | XMS_ITS | Encounter Summary ---
Author Organization [facility] Address [address] [place] [address] Care Team Providers Care Furnace Checker Name Role Phone Juanita Adhikari MD Primary Care Provider [phone] Reason for Visit * Reason Comments Medication Refill Encounter Details Date Type Department Care Team (Latest Contact Info) Description 04/26/2024 Refill [facility] Neurogastroenterology [place] [address] 1st [place] [address] Lelo Garsia, CONSUMER AFFAIRS DIRECTOR [address] [phone] Constipation, unspecified constipation type; Gastroesophageal reflux disease without esophagitis Social History Tobacco Use Types Packs/Day Years [...] AM EDT documented as of this encounter Plan of Treatment Not on file documented as of this encounter Visit Diagnoses Diagnosis Constipation, unspecified constipation type Gastroesophageal reflux disease without esophagitis Esophageal reflux documented in this encounter Care Teams Furnace Checker Relationship Specialty Start Date End Date Juanita Adhikari MD [address] [place] [address] PCP - General Radiology, Diagnostic 09/25/21 documented as of this encounter
--- OUTSIDE RECORDS SUMMARY | 2024-05-10 15:38 | XMS_ITS ---
Author Organization [facility] Address [address] [address] Care Team Providers Care Solderer Electronic Name Role Phone OnofreJuanita Primary Care Provider KATIE Stover Unavailable [phone] Allergies Allergen (clinical drug ingredient) Drug/Non Drug [...] Once a day Active Vital Signs Temperature 97.0 degrees Fahrenheit 12/06/19 23 Heart Rate 80 /min 12/05/2022 Respiratory Rate 12 /min 12/05/2022 Height 5ft 8in in 12/05/2022 Weight 158.7 lbs 12/05/2022 BMI 24.13 kg/m2 12/05/2022 Procedures Procedure Date Ordered Date Performed Result Body Sit e Nail avulsion partial/complete 12/05/2022 N/A Nail avulsion each add nail plate 12/05/2022 N/ A Encounters Encounter Location Date Provider Diagnosis [facility] [address] [address] 12/05/2022 KATIE CONNOLLY Ingrown toenail of both feet L60.0 ; Pain around toenail, right foot M79.674 and Pain around toenail, left foot M79.675 Assessments Encounter Date Diagnosis (ICD Code) Assessment Notes Treatment Notes Treatment Clinical Notes Section Notes 12/05/2022 Ingrown toenail of both feet (ICD-10 - L60.0) Patient was seen and examined, history reviewed. I spent approximately 30 minutes topr-yy-dzqf with the patient. Discussed treatment options for [...] history reviewed. I spent approximately 30 minutes kkbi-hi-euox with the patient. 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 * Medications:?TakingDepo-Prov era 150 MG/ML Suspension [...] nail dorsally, medially, and plantarly. Using an namibian anvil nail splitter, the medial border was [...] nail dorsally, medially, and plantarly. Using an namibian anvil nail splitter, the medial border was cut. Straight hemostats were used to remove the border of the nail. The area was then inspected and no other nail remnants were seen. The area was cleansed, all bleeding was controlled with pressure. A dressing was applied to the toe. Pt tolerated the procedure well. ? * Procedure Codes:?77019 REMOV AL OF NAIL PLATE, Modifiers: T5 07742 REMOVE NAIL PLATE, ADD-ON, Modifiers: TA * Follow Up:?2 Weeks * Billing Information: * Visit Code:? 09254 Office Visit, New Pt., Level 3. Modifiers: 25 * Procedure Codes:? 77833 REMOVAL OF NAIL PLATE. Modifiers: T5 80335 REMOVE NAIL PLATE, ADD-ON. Modifiers: TA * Sign off status: Completed true * Provider:Juancarlos Lee DPM Date:?12/05 Generated for David apple/Brigette/Susannaitting on:?05/10/2024 03:37 PM EDT History and Physical [...]
--- OUTSIDE RECORDS SUMMARY | 2024-05-10 15:38 | XMS_ITS | Patient Health Record ---
Author Organization [facility] Address [address] [facility] [address] [place] [address] Care Team Providers Care Passenger Service Representative Name Role Phone Juanita Adhikari Primary Care Provider KIRSTEN Stover Unavailable [phone] Allergies Allergen (clinical drug ingredient) Drug/Non Drug [...] Date Coverage End Date [employer] [address] [place] [address] [id number] Laura Banegas Self - patient is the [...]
--- OUTSIDE RECORDS SUMMARY | 2024-05-10 15:38 | XMS_ITS | Continuity of Care Document ---
Author Organization [facility] Address [address] [facility], [address] [address]- Support Name Relationship Address Phone RODNEY BARBER [...] Unknown Kassandra vailable Care Team Providers Care Tire Setter Name Role Phone Juanita Adhikari MD Primary Care Physician Unavail able Encounter [facility] Date(s): 04/27/24 - 05/04/24 [facility] [address] [facility], [address] [place] [address] Attending Physician: Quynh SAHNI, Chio Gonzalez Referring Physician: Juanita Adhikari MD Encounter Type: Office Visit Allergies, Adverse Reactions, Alerts Substance Criticality Severity Reaction Reaction Severity Status codeine vomit nausea Active Compazine Dystonia Active Immunizations Given and Recorded Vaccine Date Status Refusal Reason SARS-CoV-2 (COVID-19) mRNA-6577 vaccine 05/24/20 R ecorded SARS-CoV-2 (COVID-19) mRNA-1273 vaccine 04/27/20 R ecorded Medications Albuterol (Eqv-ProAir HFA) Inhalation, PRN Wheezing/Shortness of Breath, 0 Refills, Maintenance, 10/20/23 3:26:00 PM EDT, Partial fill upon patient request if the prescription is for a schedule II opioid drug. Start Date: 10/20/23 Status: Ordered Repeat number: 1 cloNIDine 0.1 mg oral tablet 0.1 mg, [...] Refills, Maintenance, 10/22/23 7:28:00 AM EDT, Capsule, [facility]/pharmacy #[id number], Partial fill upon patient request if the [...] 6:01:00 AM EDT, Route to Pharmacy Electronically, [facility]/pharmacy #[id number], Partialfill upon patient request if the prescription is for a schedule II opioid drug., 170, cm, 05/25/21 11:46:00 EDT, Height, 64, kg, 05/25/21 11:46:00 EDT, Dry Weight Start Date: 07/04/21 Status: Ordered Quantity: 120.0 Unit: tablet Repeat number: 2 levothyroxine 125 mcg (0.125 mg) oral tablet = 125 mcg, By Mouth, Daily, # 60 tablet, 2 Refills, Maintenance, 10/22/23 7:55:00 AM EDT, Tablet, [facility]/pharmacy #[id number], Partial fill upon patient request if [...] Intramuscular, Every 3 months, # 1 mL, 0 Refills, Maintenance, 04/27/24 12:59:00 PM EST, [facility], 173, cm, 03/24/24 15:05:00 EST, Height, 77.5, kg, 02/26/24 19:28:00 EST, DryWeight Start Date: 04/27/24 Status: Ordered Quantity: 1.0 Unit: mL Repeat number: 1 Motegrity 1 mg oral tablet By Mouth, [...] Confirmed Active 1Problem added by Discern Expert Vital Signs Most recent to oldest [Reference Range]: 1 Blood Pressure [90-138/55-84 mm Hg] 106/ 74mm Hg (04/27/24 2:29 PM) Social History Social History Type Response Smoking Status Never smoker; Tobacc o user in household: No entered on: 12/17/17 Sex Sex Representation Female (finding) Patient Care team information Care Team Personnel Name: Bernardino Brennan RN Position: [facility] RN Member Role: Primary Care Nurse Name: Teresa Frias RN Position: [facility] RN Member Role: Primary Care Nurse Name: Juanita Adhikari MD Position: [facility] Physician - Pediatrics Member Role: PCP Name: Lu Morgan NP Position: [facility] PCO Associate Professional Member Role: Primary Care Nurse Address: [address] [place] [address] Telecom: Care Team Related Persons Name: RODNEY BARBER Name: RODNEY BARBER Name: RODNEY BARBER Name: FEDERICO BARBER Name: FEDERICO BARBER Insurance Providers Guarantor name: FEDERICO BARBER Health Plan Information #: 1 Payer: [employer] O POS Member Number: [id number] Policy Number: NA Group Number: [id number] Health Plan Information #: 2 Payer: [employer] HMO POS Member Number: [id number] Policy Number: NA Group Number: [id number]
== END 2024-05-10 13:43 | disposition home or self-care (01) ==
LOC: HO.HCS 12:59
PROVIDERS: PCP Internal Medicine
DX: R00.2 Palpitations (principal); R06.02 Shortness of breath; R42 Dizziness and giddiness
CPT/HCPCS: 99214

== ENCOUNTER → 2024-05-10 12:58 | Outpatient (BNVA) | payer OTHER, SELFPAY | PROVIDERS: PCP Internal Medicine ==

== ENCOUNTER 2024-09-27 20:20 | Emergency (ER) | payer OTHER, SELFPAY ==
--- NOTE | 2024-09-27 | ECG_ITS ---
Test Reason : cp Blood Pressure : */* mmHG Vent. Rate : 93 BPM Atrial Rate : 93 BPM P-R Int : 128 ms QRS Dur : 82 ms QT Int : 446 ms P-R-T Axes : 70 60 48 degrees QTcB Int : 554 ms Normal sinus rhythm Possible Left atrial enlargement Nonspecific ST abnormality Prolonged QT Abnormal ECG When compared with ECG of 02-Mar-2024 14:55, T wave inversion no longer evident in Inferior leads Nonspecific T wave abnormality no longer evident in Anterior leads QT has lengthened Referred By: Generic ED Physician Electronically Signed By: DARREN ZARAGOZA MD
--- NOTE | ~2024-09-27 | CT_ITS ---
CLINICAL HISTORY: headache with l hand paresthesia CT head without contrast Comparison: MRI brain 08/06/2023, CT head 08/05/2023 Findings: No intra-axial mass, midline shift, hydrocephalus, or acute hemorrhage. No significant atrophy-like change or white matter disease. The visualized paranasal sinuses and mastoid air cells are normal. The orbits are within normal limits. There is no acute fracture. IMPRESSION: 1. No acute intracranial findings. If patient continues to have persistent or worsening symptoms, consider MRI for further evaluation. This document has been electronically signed by: Noelle Conner MD on 09/27/2024 23:07:20
[2024-09-27 21:07] VITALS: BP 118/67; PULSE 100; RESP 18; TEMP 36.7; O2SAT 99; BMI 27.9
[2024-09-27 21:33] LABS: MANUAL DIFF FLAG NO
[2024-09-27 21:34] LABS: Hematocrit 36.8 % (37.0-47.0); Hemoglobin 12.6 g/dl (12.0-16.0); Imm Gran Abs Auto 0.03 X10*3/uL (0.00-0.03); Imm Gran Pct Auto 0.3 % (0.0-0.4); Lymphocytes Absolute Auto 2.4 X10*3/uL (1.2-4.9); Mean Corpuscular HGB Conc 34.2 g/dl (31.0-35.0); Mean Corpuscular Hemoglobin 28.8 pg (27.0-33.0); Mean Corpuscular Volume 84.2 fL (80.0-98.0); NRBC Abs Auto 0.000 X10*3/uL (0.0-0.012); NRBC Pct Auto 0.0 /100WBC (0.0-0.2); Platelet Count 311 X10*3/uL (160-400); Red Blood Count 4.37 X10*6/uL (4.20-5.50); White Blood Count 10.0 X10*3/uL (4.8-10.8)
--- OUTSIDE RECORDS SUMMARY | 2024-09-27 21:39 | XMS_ITS | Clinical Summary ---
Author Organization [facility] Address [address] [place] [address] Care Team Providers Care Materials And Corrosion Engineer Name Role Phone Juanita Adhikari MD Primary Care Provider [phone] Social History Tobacco Use Types Packs/Day Years [...] (P ap Smear) 2021 Influenza Vaccine (#1) 2024 Pneumococcal Vaccine Aged Out No long er eligible based on patient's age to complete this topic RSV Ped < 20 months Aged Out No longe r eligible based on patient's age to complete this topic Care Teams Materials And Corrosion Engineer Relationship Specialty Start Date End Date Juanita Adhikari MD [address] [facility] [address] [place] [address] PCP - General Pediatrics 12/22/16
--- OUTSIDE RECORDS SUMMARY | 2024-09-27 21:39 | XMS_ITS | Clinical Summary ---
Author Organization [facility] Address [address] [place] [address] Phone Care Team Providers Care Chair Car Driver Name Role Phone Juanita Adhikari MD Primary Care Provider UnavailJuanita Cerda MD Unavailable Unavailable Juanita Adhikari MD Unavailable Unavailable Medications aprepitant (Emend) 40 mg capsule Dose: 40 mg, Dose Amount: 1 cap, PO, daily, Dispense Quantity: 4 cap, Refills: 1, Entered: 09/27/18 15:27:56 EDT 09/28/19 Active dexlansoprazole (Dexilant) [address] capsule Dose: 60 mg, Dose Amount: 1 cap, PO, daily, Special Instructions: Please dispense brand name only; no substitutions, Dispense Quantity: 30 cap, Refills: 5, Entered: 12/03/21 11:41:00 EDT, [facility]/pharmacy #[id number] 12/04/19 Active dexlansoprazole (Dexilant) [address] capsule Dose: 60 mg, Dose Amount: 1 cap, PO, daily, Special Instructions: Please dispense brand name only; no substitutions, Dispense Quantity: 30 cap, Refills: 5, Entered: 12/03/21 14:22:00 EDT 12/04/19 Active dicyclomine (Bentyl) 20 mg tablet Dose: 20 mg, Dose Amount: 1 tab, PO, QID, PRN abdominal pain, Dispense Quantity: 24 tab, Refills: 1, Entered: 01/14/21 15:07:00 EST, [facility]/pharmacy #[id number] 01/15/20 Active hyoscyamine (Anaspaz) 0.125 mg disintegrating tablet Dose: 0.125 mg, Dose Amount: 1 tab, PO, QID, Dispense Quantity: 56 tab, Refills: 3, Entered: 07/26/20 15:11:00 EDT, [facility]/pharmacy #[id number] 07/27/19 Active lubiprostone (Amitiza) 8 mcg capsule Dose: 8 mcg, Dose Amount: 1 cap, PO, BID, Dispense Quantity: 60 cap, Refills: 3, Entered: 05/16/13 14:44:33 EDT, Therapy Maintenance, [facility] - [address] [place] [address] 05/17/19 Active prucalopride (Motegrity) 1 mg tablet Dose: 1 mg, Dose Amount: 1 tab, PO, daily, Dispense Quantity: 60 tab, Refills: 2, Entered: 10/31/20 20:23:00 EDT, [facility]/pharmacy #[id number] 11/01/19 Active prucalopride (Motegrity) 1 mg tablet Dose: 1 mg, Dose Amount: 1 tab, PO, daily, Dispense Quantity: 60 tab, Refills: 5, Entered: 01/03/21 8:06:00 EDT, [facility]/pharmacy #[id number] 01/04/20 Active prucalopride 2 mg tablet Dose: 2 mg, Dose Amount: 1 tab, PO, daily, Dispense Quantity: 60 tab, Refills: 2, Entered: 07/26/20 15:10:00 EDT, [facility]/pharmacy #[id number] 07/27/19 Active rifAXIMin (Xifaxan) 550 mg tablet Dose: 550 mg, Dose Amount: 1 tab, PO, BID, Dispense Quantity: 28 tab, Refills: 1, Entered: 01/14/21 15:06:00 EST, [facility] #[id number] 01/15/20 Active Social History Tobacco Use Types Packs/Day Years Used Date Smoking Tobacco: Never Assessed Comments Unknown Sex and Gender Information Value Date Recorded Sex Assigned at Not on file Legal Sex Female 5:58 PM EDT Gender Identity Not on file Sexual Orientation Not on file Last Filed Vital Signs Vital Sign Reading Time Taken Comments Blood Pressure - - Pulse - - Temperature - - Respiratory Rate - - Oxygen Saturation - - Inhaled Oxygen Concentration - - Weight 60.8 kg (134 lb 0.6 oz) 01/14/2021 1:44 P M EST Height 168 cm (5' 6.14 ) 01/14/2021 1:44 PM EST Body Mass Index 21.54 01/14/2021 1:44 PM EST Plan of Treatment Not on file Care Teams Chair Car Driver Relationship Specialty Start Date End Date Juanita Adhikari MD PCP - General 06/10/04 Juanita Adhikari MD PCP - Clinical PCP 03/28/13 Juanita Adhikari MD PCP - Insurance PCP 05/28/05
--- OUTSIDE RECORDS SUMMARY | 2024-09-27 21:39 | XMS_ITS | Patient Health Record ---
Author Organization [facility] Address [address] [place] [address] Care Team Providers Care Professor Of Surgery Name Role Phone Juanita Adhikari Primary Care Provider KIRSTEN Stover Unavailable [phone] Allergies Allergen (clinical drug ingredient) Drug/Non Drug [...] Date Coverage End Date [employer] [address] [place] [address] [id number] Laura Banegas Self - patient is the [...]
--- OUTSIDE RECORDS SUMMARY | 2024-09-27 21:39 | XMS_ITS ---
Author Name [facility] Organization Unknown History of Medication Use Medication Directions Dispensed Refills Start Date End Date Status Motegrity 2 MG tablet TAKE 1 TABLET BY MOUTH EVERY DAY 4 active dexlansoprazole (DEXILANT) 60 MG capsule TAKE 1 CAPSULE BY MOUTH EVERY DAY 2 11/03/19 24 active iohexol (OMNIPAQUE) 350 mg/mL injection 80 mL 80 mL, Intravenous, Once in imaging, contrast, Starting on [place] 12/12/21 at 1117, For 1 dose, Radiology Appointment 2 12/13/19 22 completed medroxyPROGESTERone (DEPO-PROVERA) 150 mg/mL injection 2 active hydrOXYzine pamoate (VISTARIL) 25 MG capsule TAKE 1 CAPSULE BY MOUTH EVERY 8 HOURS NEEDED FOR ANXIETY 2 active sertraline (ZOLOFT) 100 MG tablet Take 100 mg by mouth daily. 2 active hyoscyamine (LEVSIN) 0.125 MG tablet Take 0.25 mg by mouth. 2 active oxybutynin (DITROPAN-XL) 10 MG 24 hr tablet Take 10 mg by mouth. 2 active polyethylene glycol (miraLAx) 17 GM/SCOOP powder See Instructions, 17 Gm By Mouth twice daily . dissolve in water or juice, # 527 Gm, 1 Refills, Maintenance, 03/14/21 10:17:00 EST, REC Powder, [facility]/pharmacy #[id number], Partial fill upon patient request if the prescription is for a schedule II opioid drug... 2 active meningococcal group B recombinant vaccine (Bexsero) Suspension Prefilled Syringe injection Bexsero 50 mcg-50 mcg-50 mcg-25 mcg/0.5 mL intramuscular syringe 05/15/19 23 active Allergies Allergen Reaction Severity Comment Documented Date Source Statu s PROCHLORPERAZINE DYSKINESIA/DYSTONIA 11/07/2021 [facility] active CODEINE GI INTOLERANCE/NAUSEA/VO MITING [facility] Problems Problem Status Onset Date Problem Type Date of Resolution Source Endometriosis active 2021-12-25 ProblemAct [facility] Gastroesophageal reflux disease without esophagitis active EncounterDiagnosisAct [facility] Constipation, unspecified constipation type active EncounterDiagnosisAct [facility] Dysmenorrhea active 2021-12-25 ProblemAct [facility] Abdominal pain active 2021-12-25 ProblemAct [facility] Factor V Leiden mutation active 2021-12-25 ProblemAct [facility] Asthma active 2021-12-25 ProblemAct [facility] Encounters Encounter Type Encounter Reason Primary Diagnosis Location Date Ambulatory Constipation, unspecified [facility] 05/14/2022 Ambulatory Constipation, unspecified [facility] 04/29/2022 Ambulatory Constipation, unspecified [facility] 02/25/2022 Ambulatory Nausea [email or web address] 12/26/2021 Ambulatory Nausea [email or web address] 12/12/2021 Ambulatory Nausea [email or web address] 11/07/2021 Care Team Organization Name Specialty Phone Email Start Date End Da te [facility] Lionel Lozano Primary Care 12/26/2021 [facility] LIONEL LOZANO Primary Care 11/07/2021 04/29/2022
[2024-09-27 21:47] LABS: Alanine Aminotransferase 13 U/L (0-31); Albumin Level 4.7 g/dL (3.5-5.0); Alkaline Phosphatase 92 U/L (39-117); Anion Gap 13 (12-20); Aspartate Amino Transferase 18 U/L (5-31); Blood Urea Nitrogen 12 mg/dL (9-16); Calcium 8.9 mg/dL (8.4-10.2); Carbon Dioxide 18 mmol/L (22-29); Chloride 115 mmol/L (96-108); Creatinine Clr Calc Pharmacy 114.9; Estimated Glomerular Filt Rate > 60; Potassium 3.9 mmol/L (3.3-5.1); Sodium 142 mmol/L (135-145); Total Protein 7.7 g/dL (6.5-8.0)
--- NOTE | 2024-09-27 21:51 | ED.NEUROSD ---
HPI - Neuro Symptoms/Deficit General Chief Complaint: Neuro Symptoms/Deficit Stated Complaint: Chest pain, Migraine, left side feels numb Time Seen by Provider: 09/27/24 21:50 Source: patient Mode of arrival: ambulatory Limitations: no limitations History of Present Illness ED Provider: HPI Narrative: Patient with a history of migraine headache factor 5 Leiden mutation not on any anticoagulation comes here for right-sided headache with left arm numbness and heaviness and tingling feeling but able to ambulate no dysarthria patient has had similar symptoms in 08/23 when she had MRI done and seen by neurologist diagnose as complex migraine patient's feel that this time headache is more severe denies any auras has slight nausea tried her Excedrin at home without much relief Related Data Home Medications ?Medication ?Instructions ?Recorded ?Confirmed budesonide-formoterol HFA 80 2 puff inhalation Q12H 04/24/23 05/10/24 mcg-4.5 mcg/actuation aerosol inhaler (Symbicort) dexlansoprazole 60 mg 60 mg PO BEDTIME 04/24/23 05/10/24 capsule,biphase delayed release medroxyprogesterone 150 mg/mL 150 mg IM [id number] 04/24/23 05/10/24 intramuscular suspension prucalopride 2 mg tablet 2 mg PO BEDTIME 04/24/23 05/10/24 (Motegrity) duloxetine 20 mg capsule,delayed 20 mg PO BEDTIME 08/06/23 05/10/24 release levothyroxine 125 mcg tablet 125 mcg PO DAILY 03/14/24 05/10/24 topiramate 25 mg tablet 50 mg PO DAILY 05/10/24 05/10/24 Previous Rx's ?Medication ?Instructions ?Recorded ondansetron 4 mg disintegrating 4 mg PO Q6H PRN nausea and 03/12/23 tablet vomiting #20 tabs metoprolol tartrate 25 mg tablet 12.5 mg (1/2 x 25 mg) PO BID 05/10/24 palpitations #30 tabs midodrine 2.5 mg tablet 5 mg (2 x 2.5 mg) PO TID #540 tabs 05/23/24 qkgkgvqley-lohiijilfxppm-eckppwah 1 tab PO Q8-10H PRN headache #20 09/28/24 50 mg-325 mg-40 mg tablet tabs Allergies Allergy/AdvReac Type Severity Reaction Status Date / Time prochlorperazine (From Allergy Unknown Verified 09/27/24 21:14 Compazine) codeine AdvReac Vomiting Verified 09/27/24 21:14 Review of Systems Review of Systems: Yes all other systems are reviewed and are negative [facility] Past Medical History Medical History History of thyroid cancer Factor 5 Leiden mutation, heterozygous Asthma History of small bowel obstruction IBS (irritable bowel syndrome) GERD (gastroesophageal reflux disease) Depression Anxiety Endometriosis Surgical History History of thyroidectomy, total History of lysis of adhesions History of exploratory laparotomy History of laparoscopy History of resection of small bowel History of colonoscopy History of esophagogastroduodenoscopy (EGD) Family History Family History Maternal Uncle Gallbladder cancer Mother Gallbladder disease Maternal Grandmother Gallbladder disease Social History Social History Household Members: Family Housing: House Do you presently have visiting nurse or other home services: No Alcohol intake: current Alcohol intake frequency: holidays/special occasions only Patient Tobacco Use Status: Never used Tobacco Advance Directives: No Advance Directives Information Provided: No service: No Physical Exam Vital Signs: Vital Signs: Last Vital Signs Temp 98.3 F 09/27/24 21:53 Pulse 83 09/27/24 21:53 Resp 22 H 09/27/24 21:53 BP 111/69 09/27/24 21:53 Pulse Ox 100 09/27/24 21:53 O2 Del Method Room Air 09/27/24 21:53 BMI result Body Mass Index 27.9 Appearance: Alert. Oriented X3. No acute distress. Eyes: PERRLA, No Nystagmus ENT: Pharynx normal. Oral Mucosa moist temporal artery nontender Neck: Normal inspection. Neck supple. CVS: Normal heart rate and rhythm. Pulses normal. Respiratory: No respiratory distress. Equal air entry bilateral, no wheezing/rales/rhonchi Abdomen: Soft and nontender. Bowel sounds are present, no mass palpable, no CVA tenderness Skin: Skin warm and dry. Normal skin color. Normal skin turgor. Extremities: No lower extremity edema. No calf tenderness Neuro: Oriented X 3. No motor deficit. No sensory deficit.No cerebellar signs , cranial nerves II-XII intact no objective findings of neuro deficits Medications Administered Discontinued Medications Generic Name Dose Route Start Last Admin Trade Name Jaziel PRN Reason Stop Dose Admin Diphenhydramine HCl 25 mg 09/27/24 22:13 09/27/24 22:40 Diphenhydramine Hcl 50 Mg/Ml Vial IVPUSH 09/27/24 22:14 25 mg ONCE ONE Administration Sodium Chloride 1,000 mls @ 999 mls/hr 09/27/24 22:13 09/28/24 00:00 Ns IV 09/27/24 23:13 Infused .Q1H1M ONE Infusion Acetaminophen 1,000 mg in 100 mls @ 400 mls/hr 09/27/24 22:14 09/27/24 22:57 Ofirmev IV 09/27/24 22:28 Infused ONCE ONE Infusion Metoclopramide HCl 10 mg 09/27/24 22:13 09/27/24 22:40 Metoclopramide Hcl 10 Mg/2 Ml Vial IVPUSH 09/27/24 22:14 10 mg ONCE ONE Administration Medical Decision Making Medical Decision Making [facility] Narrative: Patient's complex migraine CT scan of the head was negative labs stable improved after medications ambulatory in the ED will discharge patient home Differential Diagnosis Differential Diagnoses: The differential diagnosis associated with the presentation includes TIA/CVA/complex migraine/psychogenic Lab Data [facility] Lab Attestation statement: I reviewed the patient's lab results. 09/27/24 21:27 09/27/24 21:27 Labs: Lab Results 09/27/24 09/27/24 Range/Units 21:27 21:56 WBC 10.0 (4.8-10.8) X10*3/uL RBC 4.37 (4.20-5.50) X10*6/uL Hgb 12.6 (12.0-16.0) g/dl Hct 36.8 L (37.0-47.0) % MCV 84.2 (80.0-98.0) fL MCH 28.8 (27.0-33.0) pg MCHC 34.2 (31.0-35.0) g/dl RDW 13.2 (11.0-16.0) % Plt Count 311 (160-400) X10*3/uL MPV 9.9 (9.4-12.3) fL Immature Gran % (Auto) 0.3 (0.0-0.4) % Neut % (Auto) 67.4 (45-73) % Lymph % (Auto) 24.1 (20-40) % [place] % (Auto) 6.5 (2-11) % Eos % (Auto) 1.2 (0-4) % Baso % (Auto) 0.5 (0-2) % Lymph # (Auto) 2.4 (1.2-4.9) X10*3/uL [place] # (Auto) 0.7 (0.1-1.2) X10*3/uL Eos # (Auto) 0.1 (0.0-0.4) X10*3/uL Baso # (Auto) 0.1 (0.0-0.2) X10*3/uL Abs Immat Gran (auto) 0.03 (0.00-0.03) X10*3/uL Absolute Neuts (auto) 6.8 (2.0-8.3) x10*3/uL Absolute Nucleated RBC 0.000 (0.0-0.012) X10*3/uL Nucleated RBC % (auto) 0.0 (0.0-0.2) /100WBC Sodium 142 (135-145) mmol/L Potassium 3.9 D (3.3-5.1) mmol/L Chloride 115 H (96-108) mmol/L Carbon Dioxide 18 L (22-29) mmol/L Anion Gap 13 (12-20) BUN 12 (9-16) mg/dL Creatinine 0.86 (0.5-1.4) mg/dL Estim Creat Clear Calc 114.9 Estimated GFR > 60 Random Glucose 96 (60-115) mg/dL Calcium 8.9 (8.4-10.2) mg/dL Total Bilirubin 0.4 (0.0-1.0) mg/dL AST 18 (5-31) U/L ALT 13 (0-31) U/L Alkaline Phosphatase 92 (39-117) U/L Troponin I High Sens < 2.7 (<3.5-17.0) ng/L Total Protein 7.7 (6.5-8.0) g/dL Albumin 4.7 (3.5-5.0) g/dL Urine Test NEGATIVE (NEGATIVE) Independent Interpretation I performed an independent interpretation of an: CT Scan Radiology Impression Discussion of test interpretation with radiology: I have reviewed the radiologist's reading. Radiologist Impression: No acute NIH Stroke Scale Internal: Initial- Upon Arrival Level of Consciousness: Alert Level of Consciousness Questions: Answers both questions correctly Level of Consciousness Commands: Performs both tasks correctly Best Gaze: Normal Visual: No visual loss Facial Palsy: Normal Motor Arm (Right): No drift Motor Arm (Left): No drift Motor Leg (Right): No drift Motor Leg (Left): No drift Limb Ataxia: Absent Sensory: Normal Best Language: No aphasia Dysarthia: Normal Extinction and Inattention: No abnormality Score: 0 Discharge Plan Discharge Clinical Impression: Headache, migraine Patient Disposition: Home, Self-Care Instructions: Migraine Headache (ED) Additional Instructions: Continue take your medications for migraine as prescribed by a neurologist Your symptoms likely from complex migraine You may take Fioricet 1 tablet every 8 hours as needed for severe headache Prescriptions: New yqjsmlloay-fohmebkvztobz-djky 50-325-40 mg tablet 1 tab PO Q8-10H PRN (Reason: headache) Qty: 20 0RF No Action midodrine 2.5 mg tablet 5 mg PO TID Qty: 540 1RF ondansetron 4 mg tablet,disintegrating 4 mg PO Q6H PRN (Reason: nausea and vomiting) Qty: 20 0RF duloxetine 20 mg capsule,delayed release(DR/EC) 20 mg PO BEDTIME levothyroxine 125 mcg tablet 125 mcg PO DAILY topiramate 25 mg tablet 50 mg PO DAILY metoprolol tartrate 25 mg tablet 12.5 mg PO BID Qty: 30 5RF Motegrity 2 mg tablet 2 mg PO BEDTIME dexlansoprazole 60 mg capsule,biphase delayed releas 60 mg PO BEDTIME medroxyprogesterone 150 mg/mL suspension 150 mg IM [id number] Rx Instructions: due 08-13-23 budesonide-formoterol [Symbicort] 80-4.5 mcg/actuation HFA aerosol inhaler 2 puff inhalation Q12H Print Language: Italian
[2024-09-27 21:53] VITALS: BP 111/69; PULSE 83; RESP 22; TEMP 36.8; O2SAT 100
[2024-09-27 21:57] LABS: Troponin-I High Sensitivity < 2.7 ng/L (<3.5-17.0)
[2024-09-27 22:07] LABS: UPreg QC Valid YES
[2024-09-28 01:32] VITALS: BP 122/78; PULSE 75; RESP 15; TEMP 36.7; O2SAT 98
== END 2024-09-28 01:32 | disposition home or self-care (01) ==
PROVIDERS: Emergency Provider Internal Medicine; PCP Internal Medicine
DX: G43.909 Migraine, unspecified, not intractable, without status migrainosus (principal); R29.700 NIHSS score 0; J45.909 Unspecified asthma, uncomplicated; D68.51 Activated protein C resistance; Z85.850 Personal history of malignant neoplasm of thyroid; Z79.899 Other long term (current) drug therapy
CPT/HCPCS: 36415; 70450; 80053; 81025; 84484; 85025; 93005; 96361; 96374; 96375; 99284; J0131; J1200; J2765

== ENCOUNTER → 2024-09-27 20:20 | Outpatient (BNV) | payer OTHER, SELFPAY | PROVIDERS: Emergency Provider Internal Medicine; PCP Internal Medicine; Visit Provider Internal Medicine Cardiovascular Disease | DX: R94.31 Abnormal electrocardiogram [ECG] [EKG] (principal); R07.9 Chest pain, unspecified | CPT/HCPCS: 93010 ==

== ENCOUNTER → 2024-09-27 22:16 | Outpatient (BNV) | payer OTHER, SELFPAY | PROVIDERS: Emergency Provider Internal Medicine; PCP Internal Medicine; Visit Provider Radiology Diagnostic Radiology | DX: R51.9 Headache, unspecified (principal); R20.2 Paresthesia of skin | CPT/HCPCS: 70450 ==

== ENCOUNTER 2024-10-14 10:59 | Outpatient (AMB) | payer OTHER, SELFPAY ==
--- NOTE | 2024-10-14 11:03 | MHC.OFFVIS ---
Vital Signs 10/14/24 11:03 Height 5 ft 8 in Intake Visit Reasons: migraine Allergies prochlorperazine (From Compazine) Allergy (Verified 10/14/24 11:07) Unknown codeine Adverse Reaction (Verified 10/14/24 11:07) Vomiting Medication List - Last Reconciled 10/14/24 by America English CNP budesonide-formoterol 80-4.5 mcg/actuation (Symbicort) 2 puffs inhalation Q12H faxfukgrtx-xklemhyekstta-znte 50-325-40 mg 1 tab PO Q8-10H PRN dexlansoprazole 60 mg PO BEDTIME duloxetine 40 mg PO BEDTIME levothyroxine 125 mcg PO DAILY medroxyprogesterone 150 mg IM [id number] metoprolol tartrate 12.5 mg (1/2 x 25 mg) PO BID midodrine 5 mg (2 x 2.5 mg) PO TID ondansetron 4 mg PO Q6H PRN prucalopride (Motegrity) 2 mg PO BEDTIME topiramate 50 mg PO DAILY HPI Comments Details: 24-year-old RH woman with migraine with aura and hemiplegic migaine. (With no significant past medical history, in 2023, she was seen at [facility] [place] with episodes of left sided numbness with mild headache. CT brain, CTA brain and neck, and MRI of brain did not reveal any explanatory lesion or any significant abnormality. She had two more episodes of left arm numbness and heaviness and headache. One time, she also had vertigo.) She was diagnosed with thyroid cancer which was treated with thyroidectomy in 10/2023 followed by radiation in 11/2023. She was seen at [facility] [place] [facility] ER on 09/27/2024 for bad migraine with photophobia, nausea, and left arm numbness. Naproxen as needed usually helps, but it did not help this time. She got migraine cocktail at ER which helped some, and prescription for butalbital. She still had headache the next day and tried butalbital, but got stomach pains and it did not help migraine. A few days later, she got another migraine with left arm numbness and left facial numbness. She tried Excedrin Migraine which did not help. She had another migraine with left arm numbness about one week ago. It started in the evening and she was able to fall asleep. She woke the next day with some headache, but no numbness. She again had migraine with left arm numbness on 10/11/2024 that lasted few hours. No specific trigger. Sleep was generally okay. Stress was okay. 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 [facility] Medical History History of thyroid cancer Factor 5 Leiden mutation, heterozygous Asthma History of small bowel obstruction IBS (irritable bowel syndrome) GERD (gastroesophageal reflux disease) Depression Anxiety Endometriosis Surgical History History of thyroidectomy, total History of lysis of adhesions History of exploratory laparotomy History of laparoscopy History of resection of small bowel History of colonoscopy History of esophagogastroduodenoscopy (EGD) Family History Maternal Uncle Gallbladder cancer Mother Gallbladder disease Maternal Grandmother Gallbladder disease Social History Household Members: Family Housing: House Do you presently have visiting nurse or other home services: No Alcohol intake: current Alcohol intake frequency: holidays/special occasions only Patient Tobacco Use Status: Never used Tobacco service: No Review of Systems Const Denies chills, Denies daytime sleepiness, Denies difficulty sleeping, Denies fatigue, Denies fever(s), Denies frequent falls, Reports headache(s), Denies increased appetite, Denies poor appetite, Denies snoring, Denies weakness, Denies weight gain and Denies weight loss Eyes Denies loss of vision ENT Denies vertigo, Denies dizziness and Reports headache(s) Card Denies chest pain at rest, Denies chest pain with activity, Denies syncope, Denies leg edema and Denies palpitations Resp Denies snoring GI Denies constipation, Denies heartburn, Denies diarrhea and Denies nausea Denies urinary frequency, Denies urinary incontinence and Denies urinary urgency Musc Denies abnormal gait, Denies numbness and Denies tingling Skin/Breast Denies dry skin and Denies rash Neuro Denies abnormal gait, Denies vertigo, Denies dizziness, Denies syncope, Denies frequent falls, Reports headache(s), Denies lack of coordination, Denies loss of vision, Denies memory loss, Denies numbness, Denies restless legs, Denies seizure-like activity, Denies tingling, Denies paresthesias, Denies tremor(s) and Denies weakness Psych Denies anxiety, Denies depression, Denies auditory hallucinations, Denies memory loss, Denies visual hallucinations and Denies suicidal ideation Endo Denies fatigue and Denies palpitations Physical Exam Const Other: General Appearance:? normal, in no acute distress. Skin:? no rashes, no significant birthmarks. Heart:? S1, S2 normal, no murmurs. Lungs:? clear anteriorly and posteriorly. Extremities:? no edema. Psych:? alert, oriented, cognitive function intact, cooperative with exam. Neuro Other: Mental Status:?Normal attention, orientation, memory and affect.? Cranial Nerves:?Pupils are equal, round and reactive to light. External occular muscles are intact. Visual jay are full. Face is symmetrical. Facial sensations are normal. Tongue is midline. Palate elevates symmetrically. Shoulder shrugging is normal. Hearing to bedside conversation is normal. Sensory Exam:?....? Coordination:?No ataxia,?no titubation.? Gait Exam: Within normal limits. Extrapyramidal System:?No tremor, rigidity with normal facial expressions.? Pronator Drift:?Not present.? Involuntary Movements:?No tremors seen.? Speech:?Normal.? Results Reviewed Results Reviewed: Laboratory Tests 09/27/24 21:27 WBC 10.0 RBC 4.37 Hgb 12.6 Hct 36.8 L MCV 84.2 MCH 28.8 MCHC 34.2 RDW 13.2 Plt Count 311 MPV 9.9 Sodium 142 Potassium 3.9 D Chloride 115 H Carbon Dioxide 18 L Anion Gap 13 BUN 12 Creatinine 0.86 Estimated GFR > 60 Random Glucose 96 Calcium 8.9 Total Bilirubin 0.4 AST 18 ALT 13 Alkaline Phosphatase 92 Troponin I High Sens < 2.7 Total Protein 7.7 Albumin [address] [address] [address] Scan Report Signed Patient: Laura Banegas MR#: [id number] : 2000 Acct:[id number] Age/Sex: 23 / F ADM Date: 09/27/24 Loc: HO.ED Attending Dr: Ordering Physician: Derrick Smalls MD Date of Service: 09/27/24 Procedure(s): CT head/brain wo IV con Accession Number(s): [id number] cc: Crystal Rose MD; Derrick Smalls MD~ Report Number: [id number]: Total DLP = 591.00 mGy-cm CLINICAL HISTORY: headache with l hand paresthesia CT head without contrast Comparison: MRI brain 08/06/2023, CT head 08/05/2023 Findings: No intra-axial mass, midline shift, hydrocephalus, or acute hemorrhage. No significant atrophy-like change or white matter disease. The visualized paranasal sinuses and mastoid air cells are normal. The orbits are within normal limits. There is no acute fracture. IMPRESSION: 1. No acute intracranial findings. If patient continues to have persistent or worsening symptoms, consider MRI for further evaluation. This document has been electronically signed by: Noelle Conner MD on 09/27/2024 23:07:20 --- MRI brain WO at [facility] [place] in August 2023: WNL, ventricles are somewhat small CT brain WO at [facility] [place] in August 2023: WNL CTA brain and neck at [facility] [place] in August 2023: No vascular lesion. Large multinodular goiter. Assessment & Plan Assessment & Plan (1) Migraine with aura: Code(s): G43.109 - Migraine with aura, not intractable, without status migrainosus Category: Medical Qualifiers: Status migrainosus presence: without status migrainosus Intractability: not intractable Qualified Code(s): G43.109 - Migraine with aura, not intractable, without status migrainosus Plan: Labs and CT scan from ER reviewed, no acute findings. Increase topiramate 50mg 1 tablet twice a day. Start ondansetron 4mg 1 tablet as needed for nausea (2) Hemiplegic migraine: Code(s): G43.409 - Hemiplegic migraine, not intractable, without status migrainosus Category: Medical Qualifiers: Status migrainosus presence: without status migrainosus Intractability: not intractable Qualified Code(s): G43.409 - Hemiplegic migraine, not intractable, without status migrainosus Plan Meds tried: Fioricet, Tylenol, Excedrin migraine, metoclopromide, hydromorphone, sumatriptan (triptans contraindicated due to hemiplegic migraine) Medications: New ondansetron 4 mg PO DAILY PRN 10 tabs 5RF nausea and vomiting 30 days topiramate 50 mg PO BID 180 tabs 1RF 90 days Discontinued ondansetron Discontinued Reason: Order 4 mg PO Q6H PRN 20 tabs 0RF nausea and vomiting topiramate Discontinued Reason: Order 50 mg PO DAILY Coding Level of Care Code Est Pt Level 4 (65096) Diagnoses Migraine with aura and without status migrainosus, not intractable G43.109 Status migrainosus presence: without status migrainosus Intractability: not intractable Hemiplegic migraine without status migrainosus, not intractable G43.409 Status migrainosus presence: without status migrainosus Intractability: not intractable
--- OUTSIDE RECORDS SUMMARY | 2024-10-14 11:09 | XMS_ITS | Encounter Summary ---
Author Organization [facility] Address [address] [place] [address] Care Team Providers Care News Assignment Editor Name Role Phone Juanita Adhikari MD Primary Care Provider [phone] Encounter Details Date Type Department Care Team (Late st Contact Info) Description 05/19/2022 Scanned Document [facility] [place] [address] [place] [phone] Juanita Adhikari MD [address] [place] [id number] Social History Tobacco Use Types Packs/Day Years Used Date Smoking Tobacco: Never Smokeless Tobacco: Never Alcohol Use Standard Drinks/Week Comments Never 0 (1 standard drink = 0.6 oz pur e alcohol) Comments Unknown Sex and Gender Information Value Date Recorded Sex Assigned at Female 04/23/2022 2:21 PM EST Legal Sex Female 9:55 AM EDT Gender Identity Female 11/07/2021 9:33 PM EDT [...] on filedocumented in this encounter Care Teams News Assignment Editor Relationship Specialty Start Date End Date Juanita Adhikari MD [address] [facility] [place] [address] PCP - General Radiology, Diagnostic 09/25/21 documented as of this encounter
--- OUTSIDE RECORDS SUMMARY | 2024-10-14 11:09 | XMS_ITS | Patient Health Record ---
Author Organization [facility] Address [address] [place] [address] Care Team Providers Care Call Center Specialist Name Role Phone Juanita Adhikari Primary Care Provider KIRSTEN Stover Unavailable [phone] Allergies Allergen (clinical drug ingredient) Drug/Non Drug [...] Date Coverage End Date [employer] [address] [place] [address] [id number] Laura Banegas Self - patient is the [...]
--- OUTSIDE RECORDS SUMMARY | 2024-10-14 11:09 | XMS_ITS | Clinical Summary ---
Author Organization [facility] Address [address] [place] [address] Care Team Providers Care Oil Bay Technician Name Role Phone Juanita Adhikari MD Primary Care Provider [phone] Social History Tobacco Use Types Packs/Day Years [...] age to complete this topic Care Teams Oil Bay Technician Relationship Specialty Start Date End Date Juanita Adhikari MD [address] [facility] [address] [place] [address] PCP - General Pediatrics 12/22/16
--- OUTSIDE RECORDS SUMMARY | 2024-10-14 11:09 | XMS_ITS | Clinical Summary ---
Author Organization [facility] Address [address] [place] [address] Phone Care Team Providers Care Drum Operator Name Role Phone Juanita Adhikari MD Primary [...] cap, Refills: 5, Entered: 12/03/21 11:41:00 EDT, [facility]/pharmacy #[id number] 12/04/19 Active dexlansoprazole (Dexilant) 60 mg [...] tab, Refills: 1, Entered: 01/14/21 15:07:00 EST, [facility]/pharmacy #[id number] 01/15/20 Active hyoscyamine (Anaspaz) 0.125 mg disintegrating tablet Dose: 0.125 mg, Dose Amount: 1 tab, PO, QID, Dispense Quantity: 56 tab, Refills: 3, Entered: 07/26/20 15:11:00 EDT, [facility]/pharmacy #[id number] 07/27/19 Active lubiprostone (Amitiza) 8 mcg capsule Dose: 8 mcg, Dose Amount: 1 cap, PO, BID, Dispense Quantity: 60 cap, Refills: 3, Entered: 05/16/13 14:44:33 EDT, Therapy Maintenance, [facility] [address] [place] [address] 05/17/19 Active prucalopride (Motegrity) 1 mg tablet Dose: 1 mg, Dose Amount: 1 tab, PO, daily, Dispense Quantity: 60 tab, Refills: 2, Entered: 10/31/20 20:23:00 EDT, [facility]/pharmacy #[id number] 11/01/19 Active prucalopride (Motegrity) 1 mg tablet Dose: 1 mg, Dose Amount: 1 tab, PO, daily, Dispense Quantity: 60 tab, Refills: 5, Entered: 01/03/21 8:06:00 EDT, [facility]/pharmacy #[id number] 01/04/20 Active prucalopride 2 mg tablet Dose: 2 mg, Dose Amount: 1 tab, PO, daily, Dispense Quantity: 60 tab, Refills: 2, Entered: 07/26/20 15:10:00 EDT, [facility]/pharmacy #[id number] 07/27/19 Active rifAXIMin (Xifaxan) 550 mg [...] of Treatment Not on file Care Teams Drum Operator Relationship Specialty Start Date End Date Juanita Adhikari MD PCP - General 06/10/04 Juanita Adhikari MD PCP - Clinical PCP 03/28/13 Juanita Adhikari MD PCP - Insurance PCP 05/28/05
--- OUTSIDE RECORDS SUMMARY | 2024-10-14 11:09 | XMS_ITS | Continuity of Care Document ---
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 07/21/2024 Sbajppyooj60yf Tablets 1 by mouth every day Bossman Flores MD Medroxyprogesterone Caixbtj049xz/ml Suspension Unknown 0 Tsgyiffpq4ob Tablets 1 by mouth every day Unknown Gioskzvbbysbqbp84wv Capsules DR Unknown Metoprolol Dlasdnig15wu Tablets Take half tab twice a day Luis Amor MD Lorazepam0.5mg Tablets prn for anxiety Juanita Adhikari MD History Medications Levothyroxine Uhzbgv186bus Capsules Take 1 tab by mouth thu-thursday 30caps Svetlana Abdi M.D. 11/23/2023 - 07/21/2024 Vital Signs Date Vital Result Comment 07/21/2024 2:20pm BP Systolic 118 mmHg BP Diastolic 80 mmHg Heart Rate 95 /min Height 68 inches 5'8 Weight 182.00 lb BMI (Body Mass Index) 27.7 kg/m2 Results Test Acquired Date Facility Test Result H/L Range Note TSH Rfx on Abnormal to Free T4 06/01/2024 [facility] TSH RFX On Abnormal To Free T4 0.396 uIU/mL Low 0.450-4. 500 T4,Free (Direct) 1.40 ng/dL 0.82-1.7 7 TSH Rfx on Abnormal [...] - 71 4 10 - 750 5 608 - 6735 6 190 - 66528 7 1952 -[id number] 8 22180 -[id number] 9 06710 -[id number] 55341 -[id number] 12 29108 -226233 14 08084 - 23065 15 51727 - 50481 16 6956 - 47147 17 9687 - 81460 18 0127 - 45198 [email or web address] ECLIA methodology Medical Devices Description No Information Available Encounters Type Date Location Provider Dx Diagnosis Office Visit 07/21/2024 2:15p Main Office MUSTAPHA Macias C73 Malignant neoplasm of thyroid gland E89.0 Postprocedural hypot hyroidism Assessments Date Code Description Provider 07/21/2024 C73 Malignant neoplasm of thyroi d gland MUSTAPHA Macias 07/21/2024 E89.0 Postprocedural hypothyroidis m MUSTAPHA Macias Plan of Treatment Future Appointment(s):* 11/29/2024 2:15 pm - Sal Tai M.D. at Main Office 07/21/2024 - MUSTAPHA Macias* C73 Malignant neoplasm of thyroid gland * E89.0 Postprocedural hypothyroidism * Functional Status Description No Information Available Mental Status Description No Information Available Referrals Refer to Reason for Referral Status Appt Berto Bragg M.D. dx: malignant thyroid neoplasm Clos ed 10/09/2023 [facility] (Notes Only[facility] [place] [phone]
== END 2024-10-14 11:28 | disposition home or self-care (01) ==
LOC: HO.HSM 11:00
PROVIDERS: PCP Internal Medicine; Visit Provider Registered Nurse
DX: G43.109 Migraine with aura, not intractable, without status migrainosus (principal); G43.409 Hemiplegic migraine, not intractable, without status migrainosus
CPT/HCPCS: 99214

== ENCOUNTER 2024-11-15 14:35 | Outpatient (AMB) | payer OTHER, SELFPAY ==
--- NOTE | 2024-11-15 14:39 | MHC.OFFVIS ---
Vital Signs 11/15/24 14:39 Height 5 ft 8 in Intake Visit Reasons: 4 weeks MARTINEZ Allergies prochlorperazine (From Compazine) Allergy (Verified 11/15/24 14:41) Unknown codeine Adverse Reaction (Verified 11/15/24 14:41) Vomiting Medication List - Last Reconciled 11/15/24 by America English CNP budesonide-formoterol 80-4.5 mcg/actuation (Symbicort) 2 puffs inhalation Q12H srdvtlvjlk-skpikwwyryzrw-gjli 50-325-40 mg 1 tab PO Q8-10H PRN dexlansoprazole 60 mg PO BEDTIME duloxetine 40 mg PO BEDTIME levothyroxine 125 mcg PO DAILY medroxyprogesterone 150 mg IM [id number] metoprolol tartrate 12.5 mg (1/2 x 25 mg) PO BID midodrine 5 mg (2 x 2.5 mg) PO TID ondansetron 4 mg PO DAILY PRN 30 days prucalopride (Motegrity) 2 mg PO BEDTIME topiramate 50 mg PO BID 90 days HPI Comments Details: 24-year-old RH woman with migraine with aura and hemiplegic migaine. (With no significant past medical history, in 2023, she was seen at [facility] [place] [place] with episodes of left sided numbness with mild headache. CT brain, CTA brain and neck, and MRI of brain did not reveal any explanatory lesion or any significant abnormality. She had two more episodes of left arm numbness and heaviness and headache. One time, she also had vertigo.) She was diagnosed with thyroid cancer which was treated with thyroidectomy in 10/2023 followed by radiation in 11/2023. She was doing okay. Increased dose of topiramate was helping. No medication side effects. No significant migraines. No further episodes of left arm or facial numbness. She had a few mild headaches, about 2/week, that were relieved with Naproxen within 45 minutes. Sleep was okay. 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 [facility] Medical History History of thyroid cancer Factor 5 Leiden mutation, heterozygous Asthma History of small bowel obstruction IBS (irritable bowel syndrome) GERD (gastroesophageal reflux disease) Depression Anxiety Endometriosis Surgical History History of thyroidectomy, total History of lysis of adhesions History of exploratory laparotomy History of laparoscopy History of resection of small bowel History of colonoscopy History of esophagogastroduodenoscopy (EGD) Family History Maternal Uncle Gallbladder cancer Mother Gallbladder disease Maternal Grandmother Gallbladder disease Social History Household Members: Family Housing: House Do you presently have visiting nurse or other home services: No Alcohol intake: current Alcohol intake frequency: holidays/special occasions only Patient Tobacco Use Status: Never used Tobacco service: No Review of Systems Const Denies chills, Denies daytime sleepiness, Denies difficulty sleeping, Denies fatigue, Denies fever(s), Denies frequent falls, Reports headache(s), Denies increased appetite, Denies poor appetite, Denies snoring, Denies weakness, Denies weight gain and Denies weight loss Eyes Denies loss of vision ENT Denies vertigo, Denies dizziness and Reports headache(s) Card Denies chest pain at rest, Denies chest pain with activity, Denies syncope, Denies leg edema and Denies palpitations Resp Denies snoring GI Denies constipation, Denies heartburn, Denies diarrhea and Denies nausea Denies urinary frequency, Denies urinary incontinence and Denies urinary urgency Musc Denies abnormal gait, Denies numbness and Denies tingling Skin/Breast Denies dry skin and Denies rash Neuro Denies abnormal gait, Denies vertigo, Denies dizziness, Denies syncope, Denies frequent falls, Reports headache(s), Denies lack of coordination, Denies loss of vision, Denies memory loss, Denies numbness, Denies restless legs, Denies seizure-like activity, Denies tingling, Denies paresthesias, Denies tremor(s) and Denies weakness Psych Denies anxiety, Denies depression, Denies auditory hallucinations, Denies memory loss, Denies visual hallucinations and Denies suicidal ideation Endo Denies fatigue and Denies palpitations Physical Exam Const Other: General Appearance:? normal, in no acute distress. Skin:? no rashes, no significant birthmarks. Heart:? S1, S2 normal, no murmurs. Lungs:? clear anteriorly and posteriorly. Extremities:? no edema. Psych:? alert, oriented, cognitive function intact, cooperative with exam. Neuro Other: Mental Status:?Normal attention, orientation, memory and affect.? Cranial Nerves:?Pupils are equal, round and reactive to light. External occular muscles are intact. Visual jay are full. Face is symmetrical. Facial sensations are normal. Tongue is midline. Palate elevates symmetrically. Shoulder shrugging is normal. Hearing to bedside conversation is normal. Sensory Exam:?....? Coordination:?No ataxia,?no titubation.? Gait Exam: Within normal limits. Extrapyramidal System:?No tremor, rigidity with normal facial expressions.? Pronator Drift:?Not present.? Involuntary Movements:?No tremors seen.? Speech:?Normal.? Results Reviewed Results Reviewed: CT brain at [facility] [place] [place] 08/2024: No acute intracranial findings. MRI brain WO at [facility] [place] [place] in August 2023: WNL, ventricles are somewhat small CT brain WO at [facility] [place] [place] in August 2023: WNL CTA brain and neck at [facility] [place] [place] in August 2023: No vascular lesion. Large multinodular goiter. Assessment & Plan Assessment & Plan (1) Migraine with aura: Code(s): G43.109 - Migraine with aura, not intractable, without status migrainosus Category: Medical Qualifiers: Status migrainosus presence: without status migrainosus Intractability: not intractable Qualified Code(s): G43.109 - Migraine with aura, not intractable, without status migrainosus Plan: Continue topiramate 50mg 1 tablet twice a day. Continue ondansetron 4mg 1 tablet as needed for nausea. May continue Naproxen as needed. (2) Hemiplegic migraine: Code(s): G43.409 - Hemiplegic migraine, not intractable, without status migrainosus Category: Medical Qualifiers: Status migrainosus presence: without status migrainosus Intractability: not intractable Qualified Code(s): G43.409 - Hemiplegic migraine, not intractable, without status migrainosus Plan Meds tried: Fioricet, Tylenol, Excedrin migraine, metoclopromide, hydromorphone, sumatriptan (triptans contraindicated due to hemiplegic migraine) Coding Level of Care Code Est Pt Level 4 (66644) Diagnoses Migraine with aura and without status migrainosus, not intractable G43.109 Status migrainosus presence: without status migrainosus Intractability: not intractable Hemiplegic migraine without status migrainosus, not intractable G43.409 Status migrainosus presence: without status migrainosus Intractability: not intractable
--- OUTSIDE RECORDS SUMMARY | 2024-11-15 18:17 | XMS_ITS | Clinical Summary ---
Author Organization [facility] Address [address] [place] [address] Care Team Providers Care Diesel Engine Fitter Name Role Phone Juanita Adhikari MD Primary Care Provider [phone] Allergies Active Allergy Reactions Criticality Noted Date Comments Codeine GI Intolerance/Nausea/Vomiting Low 11/07 Prochlorperazine Dyskinesia/Dystonia Medium 11/07/2021 Medications oxybutynin (DITROPAN-XL) 10 MG 24 hr tablet Take 10 mg by mouth. 05/26/19 22 Active medroxyPROGESTERon e (DEPO-PROVERA) 150 mg/mL injection 09/24/19 22 Active hyoscyamine (LEVSIN) 0.125 MG tablet Take 0.25 mg by mouth. 07/05/19 22 Active Symbicort 160-4.5 MCG/ACT inhaler Inhale 2 puffs 2 (two) times a day. DIRECTED 09/17/19 22 Active hydrOXYzine pamoate (VISTARIL) 25 MG capsule TAKE 1 CAPSULE BY MOUTH EVERY 8 HOURS NEEDED FOR ANXIETY 08/31/19 22 Active sertraline (ZOLOFT) 100 MG tablet Take 100 mg by mouth daily. 08/31/19 22 Active ondansetron (ZOFRAN-ODT) 4 MG disintegrating tablet 12/12/19 22 Active polyethylene glycol (miraLAx) 17 GM/SCOOP powder See Instructions, 17 Gm By Mouth twice daily . dissolve in water or juice, # 527 Gm, 1 Refills, Maintenance, 03/14/21 10:17:00 EST, REC Powder, [id number], Partial fill upon patient request if the prescription is for a schedule II opioid drug... 03/14/19 22 Active Motegrity 1 MG tabletIndications: Colon cancer screening Take 1 tablet (1 mg total) by mouth daily. 90 tablet 3 01/10/20 22 Active Motegrity 2 MG tabletIndications: Constipation, unspecified constipation type TAKE 1 TABLET BY MOUTH EVERY DAY 90 tablet 1 04/29/19 25 Active dexlansoprazole (DEXILANT) 60 MG capsuleIndications :Gastroesophageal reflux disease without esophagitis TAKE 1 CAPSULE BY MOUTH EVERY DAY 90 capsule 1 10/29/19 25 Active dexlansoprazole (DEXILANT) 60 MG capsuleIndications :Gastroesophageal reflux disease without esophagitis TAKE 1 CAPSULE BY MOUTH EVERY DAY 90 capsule 1 04/29/19 25 025 Discontin ued(Reord er) Active Problems Problem Noted Date Diagnosed Date Abdominal pain 12/25/2021 Asthma 12/25/2021 Dysmenorrhea 12/25/2021 Endometriosis 12/25/2021 Factor V Leiden mutation 12/25/2021 Encounters Date Type Department Care Team Description 10/28/2024 [facility] Neurogastroenterology [address] [place] [address] Lelo Garsia APRN Gastroesophageal reflux disease without esophagitis from Last [...] Pap Smear (Ages 21-65) 2021 Influenza Vaccine 09/30/2024 COVID-19 Vaccine (3 - 2024- season) 2024, 04/27/2020 Insurance [facility] Care Teams Diesel Engine Fitter Relationship Specialty Start Date End Date Juantia Adhikari MD [address] [place] [id number] PCP - General Radiology, Diagnostic 09/25/21
--- OUTSIDE RECORDS SUMMARY | 2024-11-15 18:17 | XMS_ITS | Encounter Summary ---
Author Organization [facility] Address [address] [place] [address] Care Team Providers Care Correction Officer Penitentiary Name Role Phone Juanita Adhikari MD Primary Care Provider [phone] Encounter Details Date Type Department Care Team (Late st Contact Info) Description 05/19/2022 Scanned Document [facility] Neurogastroenterology [place] [address] [place] [phone] Juanita Adhikari MD [address] [place] [phone] Social History Tobacco Use Types Packs/Day Years [...] on filedocumented in this encounter Care Teams Correction Officer Penitentiary Relationship Specialty Start Date End Date Juanita Adhikari MD [address] [facility] [place] [address] PCP - General Radiology, Diagnostic 09/25/21 documented as of this encounter
--- OUTSIDE RECORDS SUMMARY | 2024-11-15 18:17 | XMS_ITS | Continuity of Care Document ---
Author Organization [facility] [address] [facility] [address] [place] [address] Phone [phone] Problems Active Problems Provider Date Endometriosis (clinical) [...] Qnty Indications Order ing Provider Date Levothyroxine [id number] Tablets Take 1 tab by mouth thu-thursday 90tabs Svetlana Abdi M.D. 07/21/2024 Uznndlpsvt88jc Tablets 1 by mouth every day Bossman Flores MD Medroxyprogesterone Tufqoqi628zg/ml Suspension Unknown 0 Nnciktnsm5tx Tablets 1 by mouth every day Unknown Fiayjnaxncfugnf21sv Capsules DR Unknown Metoprolol Mtubcjeg73fz Tablets Take half tab twice a day Luis Amor MD Lorazepam0.5mg Tablets prn for anxiety Juanita Adhikari MD History Medications Levothyroxine Ibtxtm937mms Capsules Take 1 tab by mouth thu-thursday [...] - 71 4 10 - 750 5 203 - 4788 6 694 - 06586 7 [phone] [phone] 8 [id number] -[id number] 9 [phone] -[id number] 35524 -[id number] 12 35785 -306033 14 88735 - 53159 15 56961 - 20172 16 4771 - 05670 17 3479 - 88988 18 1894 - 33515 [employer] ECLIA methodology Medical Devices Description No Information [...] 10/09/2023 Medical Center (Notes Only) [place] [id number] [phone]
--- OUTSIDE RECORDS SUMMARY | 2024-11-15 18:17 | XMS_ITS | Patient Health Record ---
Author Organization [facility] Address [address] [facility] [address] [place] [address] Care Team Providers Care Tube Room Supervisor Name Role Phone Juanita Adhikari Primary Care Provider KIRSTEN Stover Unavailable [phone] Allergies Allergen (clinical drug ingredient) Drug/Non Drug [...] Date Coverage End Date [employer] [address] [place] [address] [id number] Laura Banegas Self - patient is the [...]
--- OUTSIDE RECORDS SUMMARY | 2024-11-15 18:17 | XMS_ITS | Encounter Summary ---
Author Organization [facility] Address [address] [place] [address] Care Team Providers Care Diamond Saw Operator Name Role Phone Juanita Adhikari MD Primary Care Provider [phone] Reason for Visit * Reason Comments Other Encounter Details Date Type Department Care Team (Late st Contact Info) Description 07/08/2023 Telephone [facility] Neurogastroenterology [address] [place] [phone] Lelo Garsia, ANIMAL ASSISTED THERAPIST [address] [phone] Other Social History Tobacco Use Types Packs/Day [...] on filedocumented in this encounter Care Teams Diamond Saw Operator Relationship Specialty Start Date End Date Juanita Adhikari MD [address] [place] [address] PCP - General Radiology, Diagnostic 09/25/21 documented as of this encounter
== END 2024-11-15 14:51 | disposition home or self-care (01) ==
LOC: HO.HSM 14:36
PROVIDERS: PCP Internal Medicine; Visit Provider Registered Nurse
DX: G43.109 Migraine with aura, not intractable, without status migrainosus (principal); G43.409 Hemiplegic migraine, not intractable, without status migrainosus
CPT/HCPCS: 99214